=== PATIENT | male | born 1980 | race Caucasian/White ===

== ENCOUNTER 2018-03-16 18:35 | Inpatient (IN) | payer MEDICAID, SELFPAY ==
[2018-03-16 18:39] VITALS: BP 124/95; PULSE 118; RESP 24; TEMP 37; O2SAT 97
--- NOTE | 2018-03-16 20:15 | ED.GENADUL_ITS ---
Disposition <Kim Burns - Last Filed: 03/16/18 20:34> <Benjamín Henao - Last Filed: 03/17/18 00:12> Clinical Impression: Poppy, Acute psychosis Disposition: STILL A PATIENT Medical Decision Making - Medical Decision Making 1841 -- 37-year-old male with history of night terrors, DVT and pulmonary embolism who was recently seen here 1 month ago for hypomania due to tangential thought and flight of ideas with ultimate discharge to home after cleared by mental health who presents for a similar presentation today. Report per [place] [employer] and [facility] was that patient was seen there earlier today and was threatening to get a gun and shoot people. We have a fax report from [facility] which stated that patient was in the main waiting room area in the first floor and became increasingly agitated and said if you aren't going to help me I am going to get a gun and start shooting people . [facility] Police Department was called and took patient to economic services. When confronted about this, patient denies ever saying this. It is unclear regarding what happened between economic services to now but patient came here voluntarily on his own. Patient has stated that he came here for Lovenox prescription. He stated he did not have any, but his bag that he presented with has multiple boxes of Lovenox. When confronted on this, patient states he does not take this Lovenox. Patient also states that he does have a Lovenox prescription at [facility] and he would like to leave to get this. Patient exhibits poppy, again with flight of ideas and tangential thought. He has rapid speech. His heart rate is tachycardic. He denies chest pain or shortness of breath. He denies suicidal or homicidal ideation. He denies hallucinations. I discussed with girlfriend in waiting room and she states she believes patient is nonthreatening. When I discussed with her that we received written documentation that he threatened to shoot people at [facility], she stated that this is not him and she is concerned. Patient initially declined lab work and requested to leave. Mental health evaluated and did not feel that we had a legal right to keep patient here. Girlfriend is now here who stated that she believes patient was recently diagnosed with bone cancer, and he has not slept for the past 4 days. When confronted on this, patient denies having bone cancer and states he believes his bone degeneration is due to his Lovenox injections. At this point I am concerned about a medical cause or contribution to his symptoms, so would recommend medical workup including labs and urinalysis. I am also concerned about a non medical cause of acute psychosis as he is clearly denying his threatening to shoot people which is written on paper as well as claiming he did not have Lovenox which is clearly in his bag, and his rapid speech and flight of ideas. 2009 -- patient is now agreeable to lab work. 2024 -- Pt had labs drawn but is demanding to leave. Will give Haldol and Ativan IM. 2029 --Case endorsed to Dr. Henao to follow-up on lab results and disposition. <Kim Burns - Last Filed: 03/16/18 20:34> - Lab Data Laboratory Tests 03/16/18 03/16/18 03/16/18 20:19 20:19 20:19 WBC 11.14 H RBC 5.12 Hgb 16.2 Hct 47.0 MCV 91.8 MCH 31.6 MCHC 34.5 RDW 13.3 Plt Count 220 MPV 11.3 H Immature Gran % 0.4 Neutrophils % 77.1 Lymphocytes % 16.2 Monocytes % 5.6 Eosinophils % 0.5 Basophils % 0.2 Absolute Neutrophils 8.59 H Absolute Lymphocytes 1.80 Absolute Monocytes 0.62 Absolute Eosinophils 0.06 Absolute Basophils 0.02 PT 10.1 INR 1.0 APTT 24.1 Sodium 139 Potassium 3.5 Chloride 103 Carbon Dioxide 24.3 Anion Gap 11.7 H BUN 15 Creatinine 1.07 Estimated GFR/1.73 m2 >= 60.00 Glucose 105 H Calcium 9.3 Ethyl Alcohol 03/16/18 20:19 WBC RBC Hgb Hct MCV MCH MCHC RDW Plt Count MPV Immature Gran % Neutrophils % Lymphocytes % Monocytes % Eosinophils % Basophils % Absolute Neutrophils Absolute Lymphocytes Absolute Monocytes Absolute Eosinophils Absolute Basophils PT INR APTT Sodium Potassium Chloride Carbon Dioxide Anion Gap BUN Creatinine Estimated GFR/1.73 m2 Glucose Calcium Ethyl Alcohol < 3.0 - Medical Decision Making The case was signed out to be my my colleague Dr. Burns. Upon my arrival to the emergency department at 8 PM the patient was aggressive, threatening staff and law enforcement, demonstrated signs of pressured speech, grandiosity, and was speaking in ways that did not clearly make sense. The patient had written documentation signed by staff at the local clinic that he had come in and stated to go and get a gun and shoot everyone up if I do not get any help or my Lovenox. And yet the patient had an entire bag filled with Lovenox which could be used. He showed concerns for grandiosity by stating multiple times to other staff physicians and caregivers that they were stupid and he was a smartest person here and he would teach them how to practice medicine correctly. While here in the emergency department I went and evaluated the patient personally and he made comments to me that I just want to , I want to end my life, I want it to be over. I need my Lovenox to live, I do not need my Lovenox to live, if you do not give me my Lovenox I will . I do not need my Lovenox, I will not if I do not have my Lovenox. I brought up with the patient how we have his Lovenox, and he has had his Lovenox, and he seemed to completely ignore this point and continue perseverating on various things including Lovenox, and his lack of will to live. In addition to this while the police officers were standing outside of his room the patient stated your heads would spin if you knew how quickly I could ripped those guns out of your whole stairs and use them. I feel that this is particularly concerning with his previous verbal statements of shooting up office staff. With the patient's clinical signs and symptoms and concern that he is having and demonstrating signs of poppy, mild psychosis, grandiosity, flight of ideas, pressured speech, as well as homicidal and suicidal ideations. Acting in the best interest of the patient's I do not feel that he is safe for discharge home for both his own well-being and the safety and well-being of others. Because of this I have filled out and signed the the emergency examination form for the patient. I feel that he would benefit from psychiatric admission. His laboratory workup does appear benign at this time. I feel that his symptoms are most concerning only secondary to a nonmedical psychiatric issue clinically at this time. I discussed the case with the mental health team and they agree. Patient due to his severe on rest, notable agitation, stomping around his room and actively coming out of his room and threatening other practitioners, providers, and frightening staff, we have given him 2 mg of Ativan and 5 mg of Haldol which she has responded well to. <Benjamín Henao R - Last Filed: 03/17/18 00:12> History of Present Illness - General Source: patient Mode of arrival: ambulatory Limitations: no limitations - History of Present Illness Initial comments: Patient is a 37-year-old male who presents voluntarily requesting Lovenox prescription and concerned about having a place to live. Police Department were present in ED while patient was present as patient had threatened to shoot people at [facility] today. <Kim Burns - Last Filed: 03/16/18 20:34> <Benjamín Henao R - Last Filed: 03/17/18 00:12> - General Chief complaint: PsychEval Stated complaint: UNKNOWN/PSYCH Time Seen by Provider: 03/16/18 18:42 - Related Data Enoxaparin [Lovenox] 120 mg SC BID 03/16/18 Allergies Allergy/AdvReac Type Severity Reaction Status Date / Time No Known Allergies Allergy Unverified 03/16/18 18:44 Review of Systems Constitutional: denies: chills, fever Eyes: denies: eye pain ENT: denies: ear pain, dental pain Respiratory: denies: cough, shortness of breath Cardiovascular: denies: chest pain, dyspnea on exertion Gastrointestinal: denies: abdominal pain, nausea, vomiting Genitourinary: denies: urgency, dysuria, frequency Musculoskeletal: denies: back pain Skin: denies: rash, lesions Neurological: denies: headache, weakness, numbness <Kim Burns - Last Filed: 03/16/18 20:34> Past Medical History - Past Medical History Medical history: AMI, DVT, hypertension, PE Hepatitis C Surgical history: angioplasty/stent, other (Knee arthroscopy, IVC filter) - Social History Smoking status: current everyday smoker Alcohol use: none Drug use: none <Kim Burns - Last Filed: 03/16/18 20:34> General Exam - General Limitations: no limitations General appearance: alert, in no apparent distress - Eye Eye exam: Present: EOMI - Respiratory Respiratory exam: Present: normal lung sounds bilaterally. Absent: respiratory distress, wheezes, rales, rhonchi, stridor - Cardiovascular Cardiovascular Exam: Present: regular rate, normal rhythm. Absent: bradycardia , tachycardia - GI/Abdominal GI/Abdominal exam: Present: soft, normal bowel sounds. Absent: distended, tenderness, guarding, rebound, rigid - Neurological Exam Neurological exam: Present: alert, oriented X3 - Psychiatric Psychiatric exam: Present: agitated, anxious. Absent: homicidal ideation, suicidal ideation - Skin Skin exam: Present: warm, dry, intact <Kim Burns - Last Filed: 03/16/18 20:34> Course Vital Signs - 24 hr 03/16/18 18:39 Temperature 98.6 F Pulse 118 H Respiratory 24 Rate Blood Pressure 124/95 Pulse Oximetry 97 <Kim Burns - Last Filed: 03/16/18 20:34> Vital Signs - 24 hr 03/16/18 18:39 Temperature 37.0 C Pulse 118 H Respiratory 24 Rate Blood Pressure 124/95 Pulse Oximetry 97 <Benjamín Henao - Last Filed: 03/17/18 00:12>
[2018-03-16 20:29] LABS: Abs Immature Grans 0.05 k/cumm (0.0-0.09); Absolute Basophil Count 0.02 k/cumm (0.0-0.2); Absolute Eosinophil Count 0.06 k/cumm (0.0-0.7); Absolute Monocyte Count 0.62 k/cumm (0.11-0.7); Absolute Neutrophil Count 8.59 k/cumm (1.2-6.7); Basophils % 0.2; Eosinophils % 0.5; HGB 16.2 g/dL (13.5-17.5); Immature Grans % 0.4; Lymphocytes % 16.2; Mean Corp. HGB Concentration 34.5 g/dL (32.0-36.0); Mean Corpuscular Hemoglobin 31.6 pg (27.0-33.0); Mean Corpuscular Volume 91.8 fL (80-95); Mean Platelet Volume 11.3 fL (8.0-11.0); Monocytes % 5.6; Neutrophils % 77.1; Platelet Count 220 x1000/uL (130-400); RBC 5.12 m/cumm (4.50-6.00); RBC Distribution Width 13.3 % (11.8-14.1); White Blood Cell Count 11.14 k/cumm (4.4-10.8)
[2018-03-16 20:39] LABS: Anion Gap 11.7 mmol/L (3-11); BUN 15 mg/dL (7-18); CO2 24.3 mmol/L (21.0-32.0); CREATININE 1.07 mg/dL (0.70-1.30); Calcium 9.3 mg/dL (8.5-10.1); Chloride 103 mmol/L (98-107); Glucose 105 mg/dL (70-100); Potassium 3.5 mmol/L (3.5-5.1); Sodium 139 mmol/L (136-145)
[2018-03-16 20:44] LABS: PTT Activated 24.1 sec (21.0-31.4); Prothrombin Time 10.1 sec (9.3-10.8)
[2018-03-16] MEDS: Haloperidol 5 MG/ML VIAL IM (20:55)
[2018-03-16] MEDS: LORazepam 2 MG/ML VIAL IM (20:56)
[2018-03-16 21:00] LABS: ETHANOL BLOOD < 3.0 mg/dL (<3)
--- NOTE | 2018-03-16 23:43 | PDOC.ERCMPRO ---
Care Management Progress Note 03/16-Rodney presented to the emergency department for medication. [facility] services had attempted to place him in two different hotels today for which he was kicked out of due to his behavior. Rodney stated he needed medications but he had them in his back pack. Threatening behaviors. Wednesday, 03/16, in the am, Rodney was at [facility] and threatened to get a gun and start shooting people if you don?t help me. Police were called and they took his to [facility] services and they were trying to help him but he was agitated, kicked out of both hotels, wondered around [facility] for a couple of hours. In the emergency room, patient was both suicidal and homicidal. See Dr. Henao?s note. Rodney lives with his mother in [place], she states he can not go back home. Mother was at [facility] and left. Carolyn from [facility] will reassess and continue bed search in am. Currently [facility] are accepting a referral for which referral has been faxed. Rodney has been EE?d. Second cert has been requested. QMHP was Megan Pellteier from [facility]. Kelly from [facility] in [facility] was in this phone huddle.Also discussed Care Plan with Dr. Henao. Care Plan 1. Suicide Precautions 2. Patient should be in paper clothes, currently sleeping, once he is awake, transition to paper clothes at that time 3. No Personal belongings in room 4. Please follow the policy on the admitted behavioral health patient 5. No phone at this time 6. No visitors at this time 7. Finger foods only. No utensils at all 8. Comfort bath system for hygiene 9. Supervised bathroom privileges 10 No television at this time 11. One one supervision by a SECURITY PROGRAM MANAGER, MANGANESE HEATER, double back operator. Please adhere to this care plan. If any changes, questions, or issues, please notify [facility] interventional radiology technologist Drum Plater at [phone], [facility] Mix Maker at [phone]. Any changes to care plan, must have huddle and new care plan must be written.
--- NOTE | 2018-03-17 00:04 | CMPROGNOTE_ITS ---
Care Management Progress Note 03/16-Rodney presented to the emergency department for medication. [facility] services had attempted to place him in two different hotels today for which he was kicked out of due to his behavior. Rodney stated he needed medications but he had them in his back pack. Threatening behaviors. Wednesday, 03/16, in the am, Rodney was at [facility] and threatened to get a gun and start shooting people if you don t help me. Police were called and they took his to [facility] services and they were trying to help him but he was agitated, kicked out of both hotels, wondered around [facility] for a couple of hours. In the emergency room, patient was both suicidal and homicidal. See Dr. Henao s note. Rodney lives with his mother in [place], she states he can not go back home. Mother was at [facility] and left. Carolyn from [facility] will reassess and continue bed search in am. Currently [facility] are accepting a referral for which referral has been faxed. Rodney has been EE d. Second cert has been requested. QMHP was Megan Pelletier from [place]. Kelly from [facility] in [facility] was in this phone huddle.Also discussed Care Plan with Dr. Henao. Care Plan 1. Suicide Precautions 2. Patient should be in paper clothes, currently sleeping, once he is awake, transition to paper clothes at that time 3. No Personal belongings in room 4. Please follow the policy on the admitted behavioral health patient 5. No phone at this time 6. No visitors at this time 7. Finger foods only. No utensils at all 8. Comfort bath system for hygiene 9. Supervised bathroom privileges 10 No television at this time 11. One one supervision by a FARM EQUIPMENT ENGINEER, BELT NOTCHER, senior qualitative researcher. Please adhere to this care plan. If any changes, questions, or issues, please notify [facility] manager operations research Renewals Manager at [phone], [facility] Brim Greaser Operator at [phone]. Any changes to care plan, must have huddle and new care plan must be written.
--- NOTE | 2018-03-17 00:22 | ERMH_ITS ---
Presenting issue: *How did they arrive here at ER and why did they come: Client is a 37-year-old male who came to the ER voluntarily requesting Lovenox prescription and concerned about not having a place to live. Police Department were present in ED while client was present as he had threatened to shoot people at [facility] earlier today. Precipitating Factors: *Assessment of Safety SI / HI- (Address delusions if pertaining to the SI/ HI) Client had denied any SI or HI, but due to his agitation he did make suicidal and homicidal statements. He is presenting with brendan at this time with massive aggression towards staff, and police in the ER. Clients family stated they will not allow him there due to this behavior and left the ER Disposition: *Behavior: Angry *Eye Contact: Angry eye contact, glaring *Mood: Very Angry, Agitated *Affect: Labile *Appetite: unknown *Sleep (trouble falling/staying asleep): States he is unable to sleep Plan: (please elaborate and include that physician is consulted with plan and/ or placement): Plan is that he is on EE status and awaiting second certification, All psychiatric beds are full at this time, however [facility] had this clinician fax paperwork to them as they are expecting discharges. Megan Pelletier from [facility] in [place] and [facility] wrote the paperwork for the EE, and [facility] will follow up in the morning with the client and progress in looking for a psychiatric bed. Provisional Diagnosis:(only if required by physician): AXIS 5 Case Handover: Done with ED nurse (name): Date & Time Huddle: done with ED staff (for boarding clients): x Yes No Date/ Time 03/16/2018 via phone @ 11:45 pm Referral for Case management: Has phone call for introduction been made Yes No Referral in EMR: Done and sent? Yes NO Clinicians Name and title and Signature: Ana Stroud, , [facility], ES Make sure that you are photocopying and submitting this to [facility] records dept.to be scanned into chart
--- NOTE | 2018-03-17 08:44 | ED.FU ---
Disposition Clinical Impression: Poppy, Acute psychosis Disposition: [facility] INPATIENT Condition: Good Medical Decision Making - Lab Data Laboratory Tests 03/16/18 03/16/18 03/16/18 20:19 20:19 20:19 WBC 11.14 H RBC 5.12 Hgb 16.2 Hct 47.0 MCV 91.8 MCH 31.6 MCHC 34.5 RDW 13.3 Plt Count 220 MPV 11.3 H Immature Gran % 0.4 Neutrophils % 77.1 Lymphocytes % 16.2 Monocytes % 5.6 Eosinophils % 0.5 Basophils % 0.2 Absolute Neutrophils 8.59 H Absolute Lymphocytes 1.80 Absolute Monocytes 0.62 Absolute Eosinophils 0.06 Absolute Basophils 0.02 PT 10.1 INR 1.0 APTT 24.1 Sodium 139 Potassium 3.5 Chloride 103 Carbon Dioxide 24.3 Anion Gap 11.7 H BUN 15 Creatinine 1.07 Estimated GFR/1.73 m2 >= 60.00 Glucose 105 H Calcium 9.3 Ethyl Alcohol 03/16/18 20:19 WBC RBC Hgb Hct MCV MCH MCHC RDW Plt Count MPV Immature Gran % Neutrophils % Lymphocytes % Monocytes % Eosinophils % Basophils % Absolute Neutrophils Absolute Lymphocytes Absolute Monocytes Absolute Eosinophils Absolute Basophils PT INR APTT Sodium Potassium Chloride Carbon Dioxide Anion Gap BUN Creatinine Estimated GFR/1.73 m2 Glucose Calcium Ethyl Alcohol < 3.0 - Medical Decision Making Received signout from Dr. Henao, the overnight physician taking care of the patient following Dr. Burns. Please see their previous documentation. Patient awoken with care management at bedside, interactive, with persistent delusions of being a member of the [place] family, pressured speech, tangential thoughts. His medical workup, including PT/INR, was unremarkable. He does not have any evidence of ongoing bleeding. It is unclear his compliance with any of his prescribed medicines. He states he has a history of breakthrough blood clot on oral anticoagulants such as Pradaxa and Eliquis and is now being maintained on Lovenox 120 mg subcu twice daily. When questioned on his DVT/Anticoagulant history, he becomes quite pressured in his speech and states you are an idiot for not doing her homework on this. He does have a documented history of DVT including that of the left mid to distal femoral vein September 14, 2017 by ultrasound at [facility]. Records reviewed include an initial clinic contact in 2013 with history of blood clot. Given this medical history, no evidence of bleeding or lab abnormality, it is reasonable to give him his Lovenox as prescribed, which he is taking voluntarily. States to me that he understands that he is under emergency evaluation/72 hour hold. States to me he voluntarily accepts transfer to [facility] or other institution. States that he is in [place] in the emergency department. Seen by mental health and care management, no bed available in the state, appropriate for him at this time. Will explore admission to [facility] pending definitive placement.
--- NOTE | 2018-03-17 08:47 | ED.FU_ITS ---
Disposition Clinical Impression: Poppy, Acute psychosis Disposition: [facility] INPATIENT Condition: Good Medical Decision Making - Lab Data Laboratory Tests 03/16/18 03/16/18 03/16/18 20:19 20:19 20:19 WBC 11.14 H RBC 5.12 Hgb 16.2 Hct 47.0 MCV 91.8 MCH 31.6 MCHC 34.5 RDW 13.3 Plt Count 220 MPV 11.3 H Immature Gran % 0.4 Neutrophils % 77.1 Lymphocytes % 16.2 Monocytes % 5.6 Eosinophils % 0.5 Basophils % 0.2 Absolute Neutrophils 8.59 H Absolute Lymphocytes 1.80 Absolute Monocytes 0.62 Absolute Eosinophils 0.06 Absolute Basophils 0.02 PT 10.1 INR 1.0 APTT 24.1 Sodium 139 Potassium 3.5 Chloride 103 Carbon Dioxide 24.3 Anion Gap 11.7 H BUN 15 Creatinine 1.07 Estimated GFR/1.73 m2 >= 60.00 Glucose 105 H Calcium 9.3 Ethyl Alcohol 03/16/18 20:19 WBC RBC Hgb Hct MCV MCH MCHC RDW Plt Count MPV Immature Gran % Neutrophils % Lymphocytes % Monocytes % Eosinophils % Basophils % Absolute Neutrophils Absolute Lymphocytes Absolute Monocytes Absolute Eosinophils Absolute Basophils PT INR APTT Sodium Potassium Chloride Carbon Dioxide Anion Gap BUN Creatinine Estimated GFR/1.73 m2 Glucose Calcium Ethyl Alcohol < 3.0 - Medical Decision Making Received signout from Dr. Henao, the overnight physician taking care of the patient following Dr. Burns. Please see their previous documentation. Patient awoken with care management at bedside, interactive, with persistent delusions of being a member of the [place] family, pressured speech, tangential thoughts. His medical workup, including PT/INR, was unremarkable. He does not have any evidence of ongoing bleeding. It is unclear his compliance with any of his prescribed medicines. He states he has a history of breakthrough blood clot on oral anticoagulants such as Pradaxa and Eliquis and is now being maintained on Lovenox 120 mg subcu twice daily. When questioned on his DVT/Anticoagulant history, he becomes quite pressured in his speech and states you are an idiot for not doing her homework on this. He does have a documented history of DVT including that of the left mid to distal femoral vein September 14, 2017 by ultrasound at [facility]. Records reviewed include an initial clinic contact in 2013 with history of blood clot. Given this medical history, no evidence of bleeding or lab abnormality, it is reasonable to give him his Lovenox as prescribed, which he is taking voluntarily. States to me that he understands that he is under emergency evaluation/72 hour hold. States to me he voluntarily accepts transfer to [facility] or other institution. States that he is in [place] in the emergency department. Seen by mental health and care management, no bed available in the state, appropriate for him at this time. Will explore admission to [facility] pending definitive placement.
[2018-03-17] MEDS: Enoxaparin 120 MG/0.8 ML SYR SC ×2 (09:16→20:28)
--- NOTE | 2018-03-17 09:36 | PDOC.ERCMPRO ---
Care Management Progress Note 03/17-Received call from [facility] at [facility]. Kim states that [facility] beds and are willing to accept a referral on Rod[facility]. Kim states that they are willing to accept EE patients today. Referral faxed to [facility] at [phone] attention to Kim, . Huddle in ED. Present in Huddle: Jeanette Nursing Irrigation Foreman, Carolyn Valdez [facility], and this CM. Discussed plan of care. At this time, Rodney has been appropriate. He has taken his medication, actually asked for his lovenox, and has had breakfast. Currently he is talking with the patient sitter. Rodney has asked to have his phone electrification adviser as his phone is not charged. He is still in regular clothing. At this time, the Care plan will change for him to remain in his own clothing and to have his electrification adviser. He will continue with a one on one for which meter supervisor will continue to coordinate. Jaylanwilfredopravin has called back and has declined admission for today. Care Plan distributed to appropriate staff. New Care plan as follows: Care Plan Rodney Hernandez 03/17/18 Involuntary Admission (EE) 1. Suicide Precautions 2. Patient can remain in personal clothing 3. No other Personal belongings in room 4. Please follow the policy on the admitted behavioral health patient 5. Patient may have cell phone in room, and phone electrification adviser when needed 6. No visitors at this time 7. Finger foods only. No utensils at all 8. Comfort bath system for hygiene 9. Supervised bathroom privileges 10 No television at this time 11. One one supervision by a HARLEEN, RESTAURANT CREW PERSON, cloth shrinking machine operator. Please adhere to this care plan. If any changes, questions, or issues, please notify [facility] suction drum drier operator Facing Cutting Machine Operator at [phone], [facility] Material Reprocessing Associate at [phone]. Any changes to care plan, must have huddle and new care plan must be written.
--- NOTE | 2018-03-17 09:44 | NUR.NOTE ---
pT calm went to the bathroom, being appropriate to me. Nursing Note:
--- NOTE | 2018-03-17 09:48 | NUR.NOTE ---
pT on his personal phone. Nursing Note:
--- NOTE | 2018-03-17 09:55 | NUR.NOTE ---
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 Nursing Note:
--- NOTE | 2018-03-17 10:05 | NUR.NOTE ---
Nursing Note: pT calm watching a movie on his phone called [employer] .
--- NOTE | 2018-03-17 10:21 | CMPROGNOTE_ITS ---
Care Management Progress Note 03/17-Received call from Kim at [facility]. Kim states that [facility] does have beds and are willing to accept a referral on [facility]. Kim states that they are willing to accept EE patients today. Referral faxed to [facility] at [phone] attention to Kim, . Huddle in ED. Present in Huddle: Jeanette Nursing Retirement Assistant, Carolyn Valdez [facility], and this CM. Discussed plan of care. At this time, Rodney has been appropriate. He has taken his medication, actually asked for his lovenox, and has had breakfast. Currently he is talking with the patient sitter. Rodney has asked to have his phone yarn spooler as his phone is not charged. He is still in regular clothing. At this time, the Care plan will change for him to remain in his own clothing and to have his yarn spooler. He will continue with a one on one for which supervisor capacitor processing will continue to coordinate. Jaylanwilfredopravin has called back and has declined admission for today. Care Plan distributed to appropriate staff. New Care plan as follows: Care Plan Rodney Hernandez 03/17/18 Involuntary Admission (EE) 1. Suicide Precautions 2. Patient can remain in personal clothing 3. No other Personal belongings in room 4. Please follow the policy on the admitted behavioral health patient 5. Patient may have cell phone in room, and phone yarn spooler when needed 6. No visitors at this time 7. Finger foods only. No utensils at all 8. Comfort bath system for hygiene 9. Supervised bathroom privileges 10 No television at this time 11. One one supervision by a HARLEEN, CLOTH FRAMER, purchasing and claims supervisor. Please adhere to this care plan. If any changes, questions, or issues, please notify [facility] combat information center officer Oil Well Service Unit Operator at [phone], [facility] Helpdesk Manager at [phone]. Any changes to care plan, must have huddle and new care plan must be written.
--- NOTE | 2018-03-17 10:23 | NUR.NOTE ---
Nursing Note: pT sleeping or listening to music. laying in bed.
--- NOTE | 2018-03-17 10:33 | NUR.NOTE ---
Nursing Note: pT sleeping he is snoring with his ear buds in.
--- NOTE | 2018-03-17 10:43 | NUR.NOTE ---
Nursing Note: pT still asleep and snoring.
--- NOTE | 2018-03-17 10:52 | NUR.NOTE ---
Nursing Note: pT still asleep.
--- NOTE | 2018-03-17 11:00 | NUR.NOTE ---
Nursing Note: PT sleeping.
--- NOTE | 2018-03-17 11:14 | NUR.NOTE ---
Nursing Note: pT still sleeping.
--- NOTE | 2018-03-17 11:20 | NUR.NOTE ---
Nursing Note: pT still sleeping.
--- NOTE | 2018-03-17 11:31 | NUR.NOTE ---
Nursing Note: pT sleeping.
--- NOTE | 2018-03-17 11:39 | NUR.NOTE ---
Nursing Note: pT sleeping.
--- NOTE | 2018-03-17 11:57 | NUR.NOTE ---
Nursing Note: pt woke up and was cranky and in pain, wanted his coke (drink) and said he was not sleeping. But Then closed his eyes and is snoring now.
--- NOTE | 2018-03-17 12:05 | NUR.NOTE ---
Nursing Note: pT was given coke (the drink) and he was asleep snoring so I did not wake him.
--- NOTE | 2018-03-17 12:16 | NUR.NOTE ---
Nursing Note: pT sleeping.
--- NOTE | 2018-03-17 12:36 | NUR.NOTE ---
Nursing Note: pT asleep.
--- NOTE | 2018-03-17 12:53 | NUR.NOTE ---
Nursing Note: pt sleeping.
--- NOTE | 2018-03-17 13:03 | NUR.NOTE ---
Nursing Note: pT asleep.
--- NOTE | 2018-03-17 13:14 | NUR.NOTE ---
Nursing Note: pT awake and cooperative with me, and in a good mood.
--- NOTE | 2018-03-17 13:24 | NUR.NOTE ---
Nursing Note: pT talking to me.
--- NOTE | 2018-03-17 13:37 | NUR.NOTE ---
Nursing Note: pT in good mood talking to me about his earlier days and trying to get pictures sent to him from a family member of him when he was young.
--- NOTE | 2018-03-17 14:01 | NUR.NOTE ---
Nursing Note: pT eating lunch and talking to me.
[2018-03-17 14:13] VITALS: BP 126/82; PULSE 94; RESP 20; TEMP 36.4; O2SAT 98
--- NOTE | 2018-03-17 16:17 | PDOC.HP ---
Date of Service: 03/17/18 Time of Service: 16:17 Assessment/Plan - Assessment/Plan (1) Bipolar disorder with psychotic features Plan: Admission [facility] under observation status pending transfer to inpatient psychiatric bed. Given the [facility] history of not expediting acute psychiatric cases to appropriate inpatient psychiatric beds I am not going to wait to start treatment. I have ordered Depakote to start at 250 mg 3 times a day and I will titrated by 250 mg every day until he is up to a daily dose of 1500 mg to 2000 mg per day. I will also start the patient on Seroquel 100 mg nightly and titrate that dose as well. History of Present Illness - History of Present Illness Chief Complaint: Brendan History of Present Illness: 37-year-old male with past medical history of obesity, DVT, pulmonary emboli, hypertension, hepatitis C, myocardial infarction status post coronary angioplasty and stent as well as Josue filter placement, night terrors and questionable history for bipolar disorder. Patient was brought to the emergency department by [place] police to be evaluated for acute mental health issues. See Dr. Kim Burns's emergency room note for details. Patient had been seen at [facility] earlier in the day requesting help regarding his Lovenox prescription. He is chronically on Lovenox for recurrent DVTs and pulmonary emboli after failing multiple oral anticoagulants including warfarin and apixaban. It is unclear to me from the record exactly what words were exchanged during his encounter at [facility] but the [facility] fax report to our emergency room stating that the patient was in the waiting area on the first floor and became severely agitated and stated if you are going to help me I am going to get a gun and start shooting people. Presently the patient denies any suicidal homicidal ideation. Patient has a stream of tangential thoughts and rapid conversation moving from topic to topic. He has grandiose ideas that he is a genius and knows more than the doctors stating that he knows every known side effect of Lovenox and feels that the Lovenox shots are killing him possibly causing him to have a cancer or osteoporosis. According to Dr. Burns's ER report patient's girlfriend reported that she believe the patient was diagnosed with bone cancer although we have no corroborative evidence he has been given such a diagnosis. The patient was confronted about this he told Dr. Burns that he does not have bone cancer but states he 7 bone degeneration due to his Lovenox injections. His girlfriend told the ER personnel that he has not slept in 4 days. Patient was reportedly picked up by the [place] [employer] and taken to the welfare office. Patient states that he has been homeless and been to the welfare office to get assistance with housing and that he was put up in a hotel. He states that he was minding his own business in the hotel when the [place] police came and picked him up and brought him in stating that he had threatened to hurt the staff at [facility]. During his stay in the emergency room he became aggressive and belligerent and was having flight of ideas and grandiosity. Dr. Burns was concerned that there may be a medical reason for his acute brendan and she wanted to lab work he initially refused lab work but eventually agreed to have lab work drawn and then afterwards demand to leave. It was a felt he was a danger to other folks and therefore he was placed under involuntary admission. He was kept in the emergency room overnight from March 16, 2018 until this afternoon March 17, 2018 while referrals were placed to [facility]. Initially the indicated willingness to accept him even under EE status however as of this afternoon there were no beds available for transfer and therefore he is now admitted to [facility] under observation status. Present time patient declines to take any brendan stabilizing medications. - Past Medical History Cardiac: HTN, [place] Pulmonary: Pulmonary embolus, Other (DVT) Hepatobiliary: Hep A/B/C (Hepatitis C) Psych: Bipolar (Questionable history for bipolar disorder. Cannot find documentation of the same but he admits to having been on mood stabilization medications including Risperdal and on antidepressants including Paxil) - Past Surgical History Past Surgical History: Arthroscopy (Knee), Other (Josue filter placement, angioplasty with stent) - Past Social History Smoke: 1 pack per day Alcohol: None Drugs: None Review of Systems - Review of Systems Respiratory: denies: Shortness of Breath Cardiovascular: denies: Chest Pain Musculoskeletal: Back Pain, Other (Hip pain) - Medications/Allergies Allergies/Adverse Reactions: Allergies Allergy/AdvReac Type Severity Reaction Status Date / Time No Known Allergies Allergy Unverified 03/16/18 18:44 Medications: Current Medications Acetaminophen (Tylenol) 0 mg PO Q4H PRN PRN Al Hydrox/Mg Hydrox/Simethicone (Mylanta Liquid) 30 ml PO Q2H PRN PRN Dimethicone/Zinc Oxide (Nhan Protect Cream) 0 gm TP PRN PRN Divalproex Sodium (Depakote) 250 mg PO TID RONAK Docusate Sodium (Colace) 100 mg PO TID PRN PRN Enoxaparin Sodium (Lovenox) 120 mg SC BID [facility] IV Miscellaneous Supplies () 1 each IV DIRECTED RONAK Magnesium Hydroxide (Milk Of Magnesia) 30 ml PO DAILY PRN PRN Polyethylene Glycol (Miralax) 17 gm PO DAILY PRN PRN PRN Reason: Constipation Quetiapine Fumarate (Seroquel) 100 mg PO HS RONAK Sodium Chloride (Saline Flush 10 Ml Syringe) 0 ml IVP PRN PRN Active Medications Generic Name Dose Route Start Last Admin Trade Name Freq PRN Reason Stop Dose Admin Acetaminophen 0 mg 03/17/18 15:01 Tylenol PO Q4H PRN PRN Al Hydrox/Mg Hydrox/Simethicone 30 ml 03/17/18 15:01 Mylanta Liquid PO Q2H PRN PRN Dimethicone/Zinc Oxide 0 gm 03/17/18 15:01 Nhan Protect Cream TP PRN PRN Divalproex Sodium 250 mg 03/17/18 20:00 Depakote PO TID RONAK Docusate Sodium 100 mg 03/17/18 15:01 Colace PO TID PRN PRN Enoxaparin Sodium 120 mg 03/17/18 20:00 Lovenox SC BID [facility] IV Miscellaneous Supplies 1 each 03/17/18 13:15 IV DIRECTED RONAK Magnesium Hydroxide 30 ml 03/17/18 15:01 Milk Of Magnesia PO DAILY PRN PRN Polyethylene Glycol 17 gm 03/17/18 15:01 Miralax PO DAILY PRN PRN Constipation Quetiapine Fumarate 100 mg 03/17/18 22:00 Seroquel PO HS RONAK Sodium Chloride 0 ml 03/17/18 13:04 Saline Flush 10 Ml Syringe IVP PRN PRN Enoxaparin [Lovenox] 120 mg SC BID 03/16/18 Objective - Exam Vitals and I&O: Vital Signs Temp 36.4 C L 03/17/18 14:13 Pulse 94 H 03/17/18 14:13 Resp 20 03/17/18 14:13 BP 126/82 03/17/18 14:13 Pulse Ox 98 03/17/18 14:13 Intake & Output 03/16/18 03/17/18 03/17/18 23:59 11:59 23:59 Weight 114.8 kg General: Alert, Other (Patient is oriented to person place and time. However the patient has rapid speech changing topics frequently. He has grandiose ideas about him being a genius. He states that he needs a 4-[employer] command card from his mother because he believes he has $1 million coming to him.) Lungs: Clear to auscultation, Normal air movement Cardiovascular: Regular rate, Normal S1, Normal S2. denies: Murmurs, Gallops, Rubs Abdomen: Normal bowel sounds, Soft. denies: Tenderness, Hepatospenomegaly, Masses Extremities: Normal pulses. denies: Edema, Tenderness/swelling Skin: Significant lesion (Multiple tattoos over his torso and arms). denies: Rashes Neurological: Other (Pressured and rapid speech with flight of ideas. No focal motor or sensory deficits. No focal cranial nerve abnormalities.) Psych/Mental Status: Other (His mood is unstable. He goes from being grandiose and speaking rapidly and moving from topic to topic to suddenly perseverating on him having some occult cancer or osteoporosis and having occult fractures from his Lovenox. He then starts to cry) Results - Laboratory Data Result Diagrams: 03/16/18 20:19 03/16/18 20:19 Laboratory Results: Laboratory Tests 03/16/18 03/16/18 03/16/18 20:19 20:19 20:19 WBC 11.14 H RBC 5.12 Hgb 16.2 Hct 47.0 MCV 91.8 MCH 31.6 MCHC 34.5 RDW 13.3 Plt Count 220 MPV 11.3 H Immature Gran % 0.4 Neutrophils % 77.1 Lymphocytes % 16.2 Monocytes % 5.6 Eosinophils % 0.5 Basophils % 0.2 Absolute Neutrophils 8.59 H Absolute Lymphocytes 1.80 Absolute Monocytes 0.62 Absolute Eosinophils 0.06 Absolute Basophils 0.02 PT 10.1 INR 1.0 APTT 24.1 Sodium 139 Potassium 3.5 Chloride 103 Carbon Dioxide 24.3 Anion Gap 11.7 H BUN 15 Creatinine 1.07 Estimated GFR/1.73 m2 >= 60.00 Glucose 105 H Calcium 9.3 Ethyl Alcohol 03/16/18 20:19 WBC RBC Hgb Hct MCV MCH MCHC RDW Plt Count MPV Immature Gran % Neutrophils % Lymphocytes % Monocytes % Eosinophils % Basophils % Absolute Neutrophils Absolute Lymphocytes Absolute Monocytes Absolute Eosinophils Absolute Basophils PT INR APTT Sodium Potassium Chloride Carbon Dioxide Anion Gap BUN Creatinine Estimated GFR/1.73 m2 Glucose Calcium Ethyl Alcohol < 3.0
--- NOTE | 2018-03-17 16:27 | PDOC.HP_ITS ---
Date of Service: 03/17/18 Time of Service: 16:17 Assessment/Plan - Assessment/Plan (1) Bipolar disorder with psychotic features Plan: Admission [facility] under observation status pending transfer to inpatient psychiatric bed. Given the [facility] history of not expediting acute psychiatric cases to appropriate inpatient psychiatric beds I am not going to wait to start treatment. I have ordered Depakote to start at 250 mg 3 times a day and I will titrated by 250 mg every day until he is up to a daily dose of 1500 mg to 2000 mg per day. I will also start the patient on Seroquel 100 mg nightly and titrate that dose as well. History of Present Illness - History of Present Illness Chief Complaint: Brendan History of Present Illness: 37-year-old male with past medical history of obesity, DVT, pulmonary emboli, hypertension, hepatitis C, myocardial infarction status post coronary angioplasty and stent as well as Josue filter placement, night terrors and questionable history for bipolar disorder. Patient was brought to the emergency department by [place] police to be evaluated for acute mental health issues. See Dr. Kim Burns's emergency room note for details. Patient had been seen at [facility] earlier in the day requesting help regarding his Lovenox prescription. He is chronically on Lovenox for recurrent DVTs and pulmonary emboli after failing multiple oral anticoagulants including warfarin and apixaban. It is unclear to me from the record exactly what words were exchanged during his encounter at [facility] but the [facility] fax report to our emergency room stating that the patient was in the waiting area on the first floor and became severely agitated and stated if you are going to help me I am going to get a gun and start shooting people. Presently the patient denies any suicidal homicidal ideation. Patient has a stream of tangential thoughts and rapid conversation moving from topic to topic. He has grandiose ideas that he is a genius and knows more than the doctors stating that he knows every known side effect of Lovenox and feels that the Lovenox shots are killing him possibly causing him to have a cancer or osteoporosis. According to Dr. Burns's ER report patient' s girlfriend reported that she believe the patient was diagnosed with bone cancer although we have no corroborative evidence he has been given such a diagnosis. The patient was confronted about this he told Dr. Burns that he does not have bone cancer but states he 7 bone degeneration due to his Lovenox injections. His girlfriend told the ER personnel that he has not slept in 4 days. Patient was reportedly picked up by the [place] Police Department and taken to the welfare office. Patient states that he has been homeless and been to the welfare office to get assistance with housing and that he was put up in a hotel. He states that he was minding his own business in the hotel when the [place] police came and picked him up and brought him in stating that he had threatened to hurt the staff at [facility]. During his stay in the emergency room he became aggressive and belligerent and was having flight of ideas and grandiosity. Dr. Burns was concerned that there may be a medical reason for his acute brendan and she wanted to lab work he initially refused lab work but eventually agreed to have lab work drawn and then afterwards demand to leave. It was a felt he was a danger to other folks and therefore he was placed under involuntary admission. He was kept in the emergency room overnight from March 16, 2018 until this afternoon March 17, 2018 while referrals were placed to [facility]. Initially the indicated willingness to accept him even under EE status however as of this afternoon there were no beds available for transfer and therefore he is now admitted to [facility] under observation status. Present time patient declines to take any brendan stabilizing medications. - Past Medical History Cardiac: HTN, [facility] Pulmonary: Pulmonary embolus, Other (DVT) Hepatobiliary: Hep A/B/C (Hepatitis C) Psych: Bipolar (Questionable history for bipolar disorder. Cannot find documentation of the same but he admits to having been on mood stabilization medications including Risperdal and on antidepressants including Paxil) - Past Surgical History Past Surgical History: Arthroscopy (Knee), Other (Josue filter placement, angioplasty with stent) - Past Social History Smoke: 1 pack per day Alcohol: None Drugs: None Review of Systems - Review of Systems Respiratory: denies: Shortness of Breath Cardiovascular: denies: Chest Pain Musculoskeletal: Back Pain, Other (Hip pain) - Medications/Allergies Allergies/Adverse Reactions: Allergies Allergy/AdvReac Type Severity Reaction Status Date / Time No Known Allergies Allergy Unverified 03/16/18 18:44 Medications: Current Medications Acetaminophen (Tylenol) 0 mg PO Q4H PRN PRN Al Hydrox/Mg Hydrox/Simethicone (Mylanta Liquid) 30 ml PO Q2H PRN PRN Dimethicone/Zinc Oxide (Nhan Protect Cream) 0 gm TP PRN PRN Divalproex Sodium (Depakote) 250 mg PO TID RONAK Docusate Sodium (Colace) 100 mg PO TID PRN PRN Enoxaparin Sodium (Lovenox) 120 mg SC BID [facility] IV Miscellaneous Supplies () 1 each IV DIRECTED RONAK Magnesium Hydroxide (Milk Of Magnesia) 30 ml PO DAILY PRN PRN Polyethylene Glycol (Miralax) 17 gm PO DAILY PRN PRN PRN Reason: Constipation Quetiapine Fumarate (Seroquel) 100 mg PO HS RONAK Sodium Chloride (Saline Flush 10 Ml Syringe) 0 ml IVP PRN PRN Active Medications Generic Name Dose Route Start Last Admin Trade Name Freq PRN Reason Stop Dose Admin Acetaminophen 0 mg 03/17/18 15:01 Tylenol PO Q4H PRN PRN Al Hydrox/Mg Hydrox/Simethicone 30 ml 03/17/18 15:01 Mylanta Liquid PO Q2H PRN PRN Dimethicone/Zinc Oxide 0 gm 03/17/18 15:01 Nhan Protect Cream TP PRN PRN Divalproex Sodium 250 mg 03/17/18 20:00 Depakote PO TID RONAK Docusate Sodium 100 mg 03/17/18 15:01 Colace PO TID PRN PRN Enoxaparin Sodium 120 mg 03/17/18 20:00 Lovenox SC BID [facility] IV Miscellaneous Supplies 1 each 03/17/18 13:15 IV DIRECTED RONAK Magnesium Hydroxide 30 ml 03/17/18 15:01 Milk Of Magnesia PO DAILY PRN PRN Polyethylene Glycol 17 gm 03/17/18 15:01 Miralax PO DAILY PRN PRN Constipation Quetiapine Fumarate 100 mg 03/17/18 22:00 Seroquel PO HS RONAK Sodium Chloride 0 ml 03/17/18 13:04 Saline Flush 10 Ml Syringe IVP PRN PRN Enoxaparin [Lovenox] 120 mg SC BID 03/16/18 Objective - Exam Vitals and I&O: Vital Signs Temp 36.4 C L 03/17/18 14:13 Pulse 94 H 03/17/18 14:13 Resp 20 03/17/18 14:13 BP 126/82 03/17/18 14:13 Pulse Ox 98 03/17/18 14:13 Intake & Output 03/16/18 03/17/18 03/17/18 23:59 11:59 23:59 Weight 114.8 kg General: Alert, Other (Patient is oriented to person place and time. However the patient has rapid speech changing topics frequently. He has grandiose ideas about him being a genius. He states that he needs a [place] command card from his mother because he believes he has $1 million coming to him.) Lungs: Clear to auscultation, Normal air movement Cardiovascular: Regular rate, Normal S1, Normal S2. denies: Murmurs, Gallops, Rubs Abdomen: Normal bowel sounds, Soft. denies: Tenderness, Hepatospenomegaly, Masses Extremities: Normal pulses. denies: Edema, Tenderness/swelling Skin: Significant lesion (Multiple tattoos over his torso and arms). denies: Rashes Neurological: Other (Pressured and rapid speech with flight of ideas. No focal motor or sensory deficits. No focal cranial nerve abnormalities.) Psych/Mental Status: Other (His mood is unstable. He goes from being grandiose and speaking rapidly and moving from topic to topic to suddenly perseverating on him having some occult cancer or osteoporosis and having occult fractures from his Lovenox. He then starts to cry) Results - Laboratory Data Result Diagrams: 03/16/18 20:19 03/16/18 20:19 Laboratory Results: Laboratory Tests 03/16/18 03/16/18 03/16/18 20:19 20:19 20:19 WBC 11.14 H RBC 5.12 Hgb 16.2 Hct 47.0 MCV 91.8 MCH 31.6 MCHC 34.5 RDW 13.3 Plt Count 220 MPV 11.3 H Immature Gran % 0.4 Neutrophils % 77.1 Lymphocytes % 16.2 Monocytes % 5.6 Eosinophils % 0.5 Basophils % 0.2 Absolute Neutrophils 8.59 H Absolute Lymphocytes 1.80 Absolute Monocytes 0.62 Absolute Eosinophils 0.06 Absolute Basophils 0.02 PT 10.1 INR 1.0 APTT 24.1 Sodium 139 Potassium 3.5 Chloride 103 Carbon Dioxide 24.3 Anion Gap 11.7 H BUN 15 Creatinine 1.07 Estimated GFR/1.73 m2 >= 60.00 Glucose 105 H Calcium 9.3 Ethyl Alcohol 03/16/18 20:19 WBC RBC Hgb Hct MCV MCH MCHC RDW Plt Count MPV Immature Gran % Neutrophils % Lymphocytes % Monocytes % Eosinophils % Basophils % Absolute Neutrophils Absolute Lymphocytes Absolute Monocytes Absolute Eosinophils Absolute Basophils PT INR APTT Sodium Potassium Chloride Carbon Dioxide Anion Gap BUN Creatinine Estimated GFR/1.73 m2 Glucose Calcium Ethyl Alcohol < 3.0
[2018-03-17 16:31] VITALS: BP 127/85; PULSE 82; RESP 20; TEMP 37.3; O2SAT 98
[2018-03-17 16:31] LABS: Bilirubin Small (Negative); Blood Negative (Negative); Clarity Clear; Glucose Negative (Negative); Ketones 40 mg/dL (Negative); Leukocyte Esterase Negative (Negative); Nitrite Negative (Negative); Specific Gravity 1.025 (1.005-1.025); pH 6.5 (5-8)
[2018-03-17 16:45] LABS: Tricyclic Antidepressants Negative (Negative)
[2018-03-17 16:48] LABS: *AMPHETAMINES SCREEN URINE Negative (Negative); *BARBITURATES SCREEN URINE Negative (Negative); *BENZODIAZEPINES SCREEN URINE Negative (Negative); Cannabinoids THC POSITIVE (Negative); Cocaine Screen,Urine Negative (Negative); METHADONE URINE SCREEN Negative (Negative); OPIATES URINE SCREEN Negative (Negative)
--- NOTE | 2018-03-17 16:57 | DI.REPORT_ITS ---
SYMPTOM/DIAGNOSIS: CHRONIC BACK PAIN. LUMBOSACRAL SPINE: 03/17 Five views were obtained. There is an IVC filter projected at the L3 level and there is an apparent left iliac graft. There is slight narrowing of intervertebral disc space at L5-S1. Otherwise intervertebral disc spaces are fairly well maintained. Mild hypertrophic degenerative changes noted involving the facet joints in the lower lumbar region. No evidence of spondylolysis or spondylolisthesis. No fracture identified. CONCLUSION: Mild DJD. No other significant abnormality seen. BILATERAL HIPS AND PELVIS: 03/17 Three views were obtained. No bony or soft tissue abnormality seen.
--- NOTE | 2018-03-17 17:37 | DI.VRAD_ITS ---
EXAM: XR Bilateral Hips With Pelvis When Performed, 2 Views CLINICAL HISTORY: 37 years old, male; Pain; Hip pain; Bilateral TECHNIQUE: Two views of the bilateral hips, with pelvis when performed. COMPARISON: No relevant prior studies available. FINDINGS: Bones/joints: Unremarkable. No acute fracture. No dislocation. Soft tissues: Unremarkable. IMPRESSION: No acute fracture or dislocation. Dictated and Authenticated by: Jcarlos Jones MD. Ordering:[facility] ASHLYN PALACIO MD
--- NOTE | 2018-03-17 17:37 | DI.VRAD_ITS ---
EXAM: XR Lumbar Spine, 4 or 5 Views CLINICAL HISTORY: 37 years old, male; Pain; Low back pain TECHNIQUE: Frontal, lateral and oblique views of the lumbar spine. COMPARISON: No relevant prior studies available. FINDINGS: Vertebrae: Vertebral body heights are normal. No acute fracture. No measurable spondylolisthesis. Straightening of the lumbar lordosis. Disc spaces: Disc space heights are unremarkable. Multilevel facet arthropathy, likely with osseous foraminal narrowing at L5-S1. Soft tissues: Unremarkable. Vasculature: IVC filter in place. Vascular stent project over the L5 level, likely within the left iliac vasculature. IMPRESSION: 1. No acute findings. 2. Multilevel facet arthropathy, likely with osseous foraminal narrowing at L5-S1. Dictated and Authenticated by: Jcarlos Jones MD. Ordering:NADEEM PALACIO MD
--- NOTE | 2018-03-17 18:01 | NUR.NOTE ---
SLIM arrived with Notes from [facility] for patient who was seen there on 03-12-18. Dr. Will reviewed notes.
--- NOTE | 2018-03-17 18:51 | PDOC.CMPRO ---
Date of Service: 03/17/18 Time of Service: 18:51 Care Management Progress Note 2nd Cert done with Dr. Keller, [facility] Psychiatrist. Rodney engaged in conversation, though was angry at times throughout discussion with Dr. Keller. Dr. Keller spoke with this contract writer, Carolyn ([facility]) and Shima ([facility]) after he met with Pt and states that he will be approving the EE 2nd cert. Shima, [facility], has notified Rodney of EE status. Safety plan has been established with patient, and care team, to adhere to patient goals, identify restrictions based on behavioral status, address nutrition, and determine allowed personal belongings, tools for hygiene and personal care. Determine level of activity including ambulation, level of supervision, visitors, and determine privileges based on behaviors and level of engagement by pt. Care Plan Rodney Hernandez 03/17/18 Involuntary Admission (EE) 1. Suicide Precautions 2. Patient can remain in personal clothing 3. No other Personal belongings in room 4. Please follow the policy on the admitted behavioral health patient 5. Patient may have cell phone in room, and phone dumpster operator when needed. Patient may have earphones. 6. No visitors at this time 7. Finger foods only. No utensils at all 8. Comfort bath system for hygiene 9. Supervised bathroom privileges 10. May have TV and remote privileges 11. One one supervision by a CATERING SERVER, TOWEL SEWER, log carrier operator. Patient is currently involuntarily at [facility] and seeking inpatient admission when a bed becomes available. [facility] Frontline Facilities Locator will continue seeking placement. Please contact the Process Tank Tender Senior J2Ee Developer ([phone]) and [facility] Facilities Locator ([phone]) for any needed changes in the Safety Plan. Safety plan has been provided to interdepartmental care team including Clinical Coordinator , Nursing Paper Machine Tender.
--- NOTE | 2018-03-17 19:00 | ERMH_ITS ---
Presenting issue: *How did they arrive here at ER and why did they come: Patient initially arrived to the Emergency Room via Police with concerns for mental health disturbances. Precipitating Factors: *Assessment of Safety SI / HI- (Address delusions if pertaining to the SI/ HI) This assessment was conducted during the second certification of the involuntary hospitalization process. The patient denied SI, HI, and delusions to the psychiatrist. The patient believes that he is being kept at the hospital illegally and believes that he is the smartest man ever. During this teleconference the patient did flip off this worker. The patient also lied to the psychiatrist about previous hospitalizations for mental health reason. Disposition: *Behavior: Patient is talking with the psychiatrist associated with [facility] on a laptop teleconference *Eye Contact: Patient was intently focused on the laptop while communicating with the psychiatrist *Mood: Patient was initially calm but quickly became agitated when being asked questions regarding mental health *Affect: Liable *Appetite: Good *Sleep (trouble falling/staying asleep): Patients sleep is becoming more appropriate Plan: (please elaborate and include that physician is consulted with plan and/ or placement): The second certification went through and the patient will remain in the hospital on EE status until a bed becomes available at a mental health treatment facility. Provisional Diagnosis:(only if required by physician): [] AXIS 5 Case Handover: Done with ED nurse (name): [] Date & Time [] Huddle: done with ED staff (for boarding clients): [] Yes [] No Date /Time [] Referral for Case management: Has phone call for introduction been made [] Yes [] No Referral in EMR: Done and sent? [] Yes [] NO Clinicians Name and title and Signature: [Carolyn Noyola - [facility] Emergency Clinician] Make sure that you are photocopying and submitting this to [facility] records dept.to be scanned into chart
--- NOTE | 2018-03-17 19:06 | CMPROGNOTE_ITS ---
Date of Service: 03/17/18 Time of Service: 18:51 Care Management Progress Note 2nd Cert done with Dr. Keller, [facility] Psychiatrist. Rodney engaged in conversation , though was angry at times throughout discussion with Dr. Keller. Dr. Keller spoke with this automobile and property underwriter, Carolyn ([facility]) and Shima ([facility]) after he met with Pt and states that he will be approving the EE 2nd cert. Shima, [facility], has notified Rodney of EE status. Safety plan has been established with patient, and care team, to adhere to patient goals, identify restrictions based on behavioral status, address nutrition, and determine allowed personal belongings, tools for hygiene and personal care. Determine level of activity including ambulation, level of supervision, visitors, and determine privileges based on behaviors and level of engagement by pt. Care Plan Rodney Hernandez 03/17/18 Involuntary Admission (EE) 1. Suicide Precautions 2. Patient can remain in personal clothing 3. No other Personal belongings in room 4. Please follow the policy on the admitted behavioral health patient 5. Patient may have cell phone in room, and phone battery recharger when needed. Patient may have earphones. 6. No visitors at this time 7. Finger foods only. No utensils at all 8. Comfort bath system for hygiene 9. Supervised bathroom privileges 10. May have TV and remote privileges 11. One one supervision by a ZANJERO, CEMENT RAILROAD CAR LOADER, control room supervisor. Patient is currently involuntarily at [facility] and seeking inpatient admission when a bed becomes available. [facility] Frontline Count Team Clerk will continue seeking placement. Please contact the Signal Timer Grievance And Appeals Specialist ([phone]) and [facility] Count Team Clerk ([phone]) for any needed changes in the Safety Plan. Safety plan has been provided to interdepartmental care team including Clinical Coordinator , Nursing Validation Specialist.
--- NOTE | 2018-03-17 20:59 | PDOC.CMPRO ---
Care Management Progress Note *Live* - [facility] Care Management Progress Note Initialization Date: 03/17/18 14:04 Care Management Progress Note Rodney is being admitted to the floor. Discussed with Elicia, Clinical Coordinator that Rodney has been appropriate and that he needs his phone and oceanography professor to continue with his disability. Rodney has been appropriate in the ED. Taking his medications and eating his meals. Rodney has been easily redirected and he does have licensed one on one supervision. Care Plan Rodney Hernandez 03/17/18 Involuntary Admission (EE) 1. Suicide Precautions 2. Patient can remain in personal clothing 3. No other Personal belongings in room 4. Please follow the policy on the admitted behavioral health patient 5. Patient may have cell phone in room, and phone oceanography professor when needed 6. No visitors at this time 7. Finger foods only. No utensils at all 8. Comfort bath system for hygiene 9. Supervised bathroom privileges 10. May have television 11. One on one supervision by a ESCALATION ENGINEER, WELLNESS PROGRAM ADMINISTRATOR, glass laminating operator. Please adhere to this care plan. If any changes, questions, or issues, please notify [facility] paper control clerk Take Up Supervisor at [phone], [facility] Auto Air Conditioning Apprentice at [phone]. Any changes to care plan, must have huddle and new care plan must be written.
--- NOTE | 2018-03-17 21:06 | CMPROGNOTE_ITS ---
Care Management Progress Note *Live* - [facility] Care Management Progress Note Initialization Date: 03/17/18 14:04 Care Management Progress Note Rodney is being admitted to the floor. Discussed with Elicia, Clinical Coordinator that Rondey has been appropriate and that he needs his phone and clinical research nurse to continue with his disability. Rodney has been appropriate in the ED. Taking his medications and eating his meals. Rodney has been easily redirected and he does have licensed one on one supervision. Care Plan Rodney Hernandez 03/17/18 Involuntary Admission (EE) 1. Suicide Precautions 2. Patient can remain in personal clothing 3. No other Personal belongings in room 4. Please follow the policy on the admitted behavioral health patient 5. Patient may have cell phone in room, and phone clinical research nurse when needed 6. No visitors at this time 7. Finger foods only. No utensils at all 8. Comfort bath system for hygiene 9. Supervised bathroom privileges 10. May have television 11. One on one supervision by a SHOT HOLE SHOOTER, TRANSIT PLANNING MANAGER, traffic supervisor. Please adhere to this care plan. If any changes, questions, or issues, please notify [facility] hand button splitter Food Order Delivery Runner at [phone], [facility] Unemployment Inspector at [phone]. Any changes to care plan, must have huddle and new care plan must be written.
[2018-03-18] MEDS: Enoxaparin 120 MG/0.8 ML SYR SC ×2 (08:16→20:20)
--- NOTE | 2018-03-18 11:00 | PDOC.CMPRO ---
Date of Service: 03/18/18 Time of Service: 11:00 Care Management Progress Note Rodney is lying in bed this morning, he has been up in the doorway of his room earlier this morning. Rodney has stated multiple times that [facility] has no rights to hold me here, I am going to leave whenever I want. Rodney has also made threatening comments in regards to police officers. Ratna RN, has asked this typewriter ribbon winder about what to do if Rodney leaves. DEANDRA spoke with Alisson Lara, Quality Management Covering, whom states that she has a call out to Asiya Mccain, Quality Management/Ball Shagger,. Alisson instructed this typewriter ribbon winder to contact KOKI Franco CNO, as he is the department administrator content designer per Alisson's report. DEANDRA contacted Salvador to seek guidance. Salvador states that if Rodney attempts to leave as he is Involuntary EE status the wildlife management professor can detain him if he gets out of his room and tries to leave the hospital. Salvador also states that he is authorizing for a second wildlife management professor to be on the Medical Surgical floor in street clothes in case Rodney attempts to elope or poses a threat to staff. The wildlife management professor has been instructed to remain in another hallway, though in ear shot of the patient observer. DEANDRA contacted Sheriff Braeden, to discuss wildlife management professor coverage, Braeden has Ozzy coming from [phone]. DEANDRA has contacted Nargis Beavers [facility], to request assistance with wildlife management professor coverage, she currently has a call out to Nelson for wildlife management professor coverage. DEANDRA has specified to Nargis the need for the wildlife management professor to remain in street clothes. DEANDRA also spoke with Nargis about ideas in which to handle the current situation as Rodney has been escalating on and off throughout the day. Nargis reports that other facilities use wash crew person during these moments, and recommends a wildlife management professor to be on premises in case Rodney attempts to elope or poses a threat to staff. Adrienne was called, those in attendance Elicia (KOKI CC), Eloisa (RN Heavy Equipment Operator), Ratna (RN), Carolyn ([facility]), and this typewriter ribbon winder. Discussed Rodney's current presentation and how he has been escalating on and off throughout the day. KOKI Segundo, states that Rodney does posture at times, and that he states that he wants to know the plan. Carolyn [facility], has met with Rodney numerous times throughout the morning to notify him that [facility] is working on placement and that there are currently no beds available in the [facility]. Rodney is upset by this and states that he will leave the hospital if he does not get placement somewhere and that the only reason that he is receptive to placement is for assistance with housing. Care plan was discussed in the huddle, at this time there are no changes to the care plan in place which is posted below. DEANDRA has contacted the below facilities. [facility] - No beds [place] - No anticipated beds until Wednesday/Wednesday [place] - No Beds Safety plan has been established with patient, and care team, to adhere to patient goals, identify restrictions based on behavioral status, address nutrition, and determine allowed personal belongings, tools for hygiene and personal care. Determine level of activity including ambulation, level of supervision, visitors, and determine privileges based on behaviors and level of engagement by pt. Care Plan Rodney Hernandez 03/18/18 Involuntary Admission (EE) 1. Suicide Precautions 2. Patient can remain in personal clothing 3. No other Personal belongings in room 4. Please follow the policy on the admitted behavioral health patient 5. Patient may have cell phone in room, and phone prawn trawler hand when needed. Patient may have earphones. 6. No visitors at this time 7. Finger foods only. No utensils. 8. Comfort bath system for hygiene 9. Supervised bathroom privileges 10. May have TV and remote privileges 11. One on one supervision by a FISHING GEAR MECHANIC, ELECTRIC CRANE OPERATOR, automation machine operator. Patient is currently involuntarily at [facility] and seeking inpatient admission when a bed becomes available. [facility] Frontline Telephony Engineer will continue seeking placement. Please contact the Ux Manager E Commerce Solution Architect ([phone]) and [facility] Telephony Engineer ([phone]) for any needed changes in the Safety Plan. Safety plan has been provided to interdepartmental care team including Clinical Coordinator , Nursing Heavy Equipment Operator.
--- NOTE | 2018-03-18 11:23 | ERMH_ITS ---
Presenting issue: *How did they arrive here at ER and why did they come: Patient initially arrived at the Emergency Department via Police for concerns of mental health disturbances. Precipitating Factors: *Assessment of Safety SI / HI- (Address delusions if pertaining to the SI/ HI) This assessment is a daily follow-up until the patient is able to be places in a mental health treatment facility. The patient denies SI, HI, and delusion. The patient believes that he is being held at the hospital illegally and has called the [facility] several times demanding paperwork. The patient is not able to understand that he is being held on an involuntary status for mental health reasons. The patient believes that he is being sent to [facility] for housing rather than for mental health treatment. Disposition: *Behavior: Patient is walking around his room listening to music on his cell phone *Eye Contact: Patient make intermittent eye contact *Mood: Patient's mood easily fluctuates from calm to very agitated *Affect: Labile *Appetite: Good *Sleep (trouble falling/staying asleep): Hospital staff states that the patient slept for several hours last night Plan: (please elaborate and include that physician is consulted with plan and/ or placement): Patient will remain at hospital on EE status until he is placed in a mental health treatment facility. Provisional Diagnosis:(only if required by physician): [] AXIS 5 Case Handover: Done with ED nurse (name): [] Date & Time [] Huddle: done with ED staff (for boarding clients): [] Yes [] No Date /Time [] Referral for Case management: Has phone call for introduction been made [] Yes [] No Referral in EMR: Done and sent? [] Yes [] NO Clinicians Name and title and Signature: [Carolyn Noyola - [facility] Emergency Clinician] Make sure that you are photocopying and submitting this to [facility] records dept.to be scanned into chart
--- NOTE | 2018-03-18 13:34 | CMPROGNOTE_ITS ---
Date of Service: 03/18/18 Time of Service: 11:00 Care Management Progress Note Rodney is lying in bed this morning, he has been up in the doorway of his room earlier this morning. Rodney has stated multiple times that [facility] has no rights to hold me here, I am going to leave whenever I want. Rodney has also made threatening comments in regards to police officers. Ratna RN, has asked this sba underwriter about what to do if Rodney leaves. DEANDRA spoke with Alisson Lara, Quality Management Covering, whom states that she has a call out to Asiya Mccain, Quality Management/Machine Inker,. Alisson instructed this sba underwriter to contact KOKI Franco CNO, as he is the cyber systems administrator lead section supervisor per Alisson's report. DEANDRA contacted Salvador to seek guidance. Salvador states that if Rodney attempts to leave as he is Involuntary EE status the freight clerk can detain him if he gets out of his room and tries to leave the hospital. Salvador also states that he is authorizing for a second freight clerk to be on the Medical Surgical floor in street clothes in case Rodney attempts to elope or poses a threat to staff. The freight clerk has been instructed to remain in another hallway, though in ear shot of the patient observer. DEANDRA contacted Sheriff Braeden, to discuss freight clerk coverage, Braeden has Ozzy coming from [phone]. DEANDRA has contacted Nargis Beavers [facility], to request assistance with freight clerk coverage, she currently has a call out to Nelson for freight clerk coverage. DEANDRA has specified to Nargis the need for the freight clerk to remain in street clothes. DEANDRA also spoke with Nargis about ideas in which to handle the current situation as Rodney has been escalating on and off throughout the day. Nargis reports that other facilities use senior data mining analyst during these moments, and recommends a freight clerk to be on premises in case Rodney attempts to elope or poses a threat to staff. Adrienne was called, those in attendance Elicia (KOKI CC), Eloisa (RN Transportation Operations Manager), Ratna (RN), Carolyn ([facility]), and this sba underwriter. Discussed Rodney's current presentation and how he has been escalating on and off throughout the day. KOKI Segundo, states that Rodney does posture at times, and that he states that he wants to know the plan. Carolyn [facility], has met with Rodney numerous times throughout the morning to notify him that [facility] is working on placement and that there are currently no beds available in the [facility]. Rodney is upset by this and states that he will leave the hospital if he does not get placement somewhere and that the only reason that he is receptive to placement is for assistance with housing. Care plan was discussed in the huddle, at this time there are no changes to the care plan in place which is posted below. DEANDRA has contacted the below facilities. [facility] - No beds [place] - No anticipated beds until Wednesday/Wednesday [place] - No Beds Safety plan has been established with patient, and care team, to adhere to patient goals, identify restrictions based on behavioral status, address nutrition, and determine allowed personal belongings, tools for hygiene and personal care. Determine level of activity including ambulation, level of supervision, visitors, and determine privileges based on behaviors and level of engagement by pt. Care Plan Rodney Hernandez 03/18/18 Involuntary Admission (EE) 1. Suicide Precautions 2. Patient can remain in personal clothing 3. No other Personal belongings in room 4. Please follow the policy on the admitted behavioral health patient 5. Patient may have cell phone in room, and phone receptionist telephone operator when needed. Patient may have earphones. 6. No visitors at this time 7. Finger foods only. No utensils. 8. Comfort bath system for hygiene 9. Supervised bathroom privileges 10. May have TV and remote privileges 11. One on one supervision by a CLIENT SERVICES ADMINISTRATOR, STRIPPER MACHINE OPERATOR, supervisor cigarette making department. Patient is currently involuntarily at [facility] and seeking inpatient admission when a bed becomes available. [facility] Frontline Rivet Hole Puncher will continue seeking placement. Please contact the Diversity Intern Early Head Start Teacher ([phone]) and [facility] Rivet Hole Puncher ([phone]) for any needed changes in the Safety Plan. Safety plan has been provided to interdepartmental care team including Clinical Coordinator , Nursing Transportation Operations Manager.
[2018-03-18 14:04] VITALS: BP 123/64; PULSE 62; RESP 18; TEMP 36.6; O2SAT 100
--- NOTE | 2018-03-18 14:37 | PDOC.CMIN ---
Date of Service: 03/18/18 Time of Service: 14:38 Care Management Initial Assess REASON FOR HOSPITALIZATION:: Bipolar disorder with psychotic features PAST MEDICAL HISTORY/PAST SURGICAL HISTORY:: HTN, [place], Pulmonary embolus, DVT, Hepatitis C, Bipolar ?, Knee arthroscopy, [place] filter placement, angioplasty with stent PREVIOUS FUNCTIONAL STATUS/SOCIAL/FAMILY SUPPORTS:: Unable to obtain much previous functional information as patient is manic at this time. Patient does not have housing, and has been staying at a friends home recently. CURRENT FUNCTIONAL STATUS:: Rodney is pacing in his room. At times he is in the doorway talking with staff. He can be verbally aggressive at times. ADVANCE DIRECTIVES:: None on file Has patient been provided with information about the portal?: No Did the patient sign up for the portal?: No CODE STATUS:: Full Code INSURANCE COVERAGE / FINANCIAL ISSUES:: Medicaid CURRENT HOME/COMMUNITY SERVICES/EQUIPMENT:: Currently Rodney has no services or medical equipment in the community. PRIMARY CARE PHYSICIAN:: Liyah Vail POTENTIAL DISCHARGE NEEDS:: Placement at psychiatric facility. Please see CM progress note from 03/18 for update. PATIENT/FAMILY EDUCATION NEEDS:: Review DC instructions, any limitations, and ongoing DC planning discussion. ANTICIPATED BARRIERS TO DISCHARGE:: Psychiatric bed availability TRANSPORTATION:: Via production lapping machine operator arranged by [facility] PLAN:: Rodney is on an EE involuntary status. He will be placed at a psychiatric facility once a bed is available. Rodney will transport via production lapping machine operator which will be arranged by [facility].
--- NOTE | 2018-03-18 14:49 | INITIAL_ITS ---
Date of Service: 03/18/18 Time of Service: 14:38 Care Management Initial Assess REASON FOR HOSPITALIZATION:: Bipolar disorder with psychotic features PAST MEDICAL HISTORY/PAST SURGICAL HISTORY:: HTN, [place], Pulmonary embolus, DVT, Hepatitis C, Bipolar ?, Knee arthroscopy, [place] filter placement, angioplasty with stent PREVIOUS FUNCTIONAL STATUS/SOCIAL/FAMILY SUPPORTS:: Unable to obtain much previous functional information as patient is manic at this time. Patient does not have housing, and has been staying at a friends home recently. CURRENT FUNCTIONAL STATUS:: Rodney is pacing in his room. At times he is in the doorway talking with staff. He can be verbally aggressive at times. ADVANCE DIRECTIVES:: None on file Has patient been provided with information about the portal?: No Did the patient sign up for the portal?: No CODE STATUS:: Full Code INSURANCE COVERAGE / FINANCIAL ISSUES:: Medicaid CURRENT HOME/COMMUNITY SERVICES/EQUIPMENT:: Currently Rodney has no services or medical equipment in the community. PRIMARY CARE PHYSICIAN:: Liyah Vail POTENTIAL DISCHARGE NEEDS:: Placement at psychiatric facility. Please see CM progress note from 03/18 for update. PATIENT/FAMILY EDUCATION NEEDS:: Review DC instructions, any limitations, and ongoing DC planning discussion. ANTICIPATED BARRIERS TO DISCHARGE:: Psychiatric bed availability TRANSPORTATION:: Via furnace unloader arranged by [facility] PLAN:: Rodney is on an EE involuntary status. He will be placed at a psychiatric facility once a bed is available. Rodney will transport via furnace unloader which will be arranged by [facility].
--- NOTE | 2018-03-18 15:02 | PROG.BLANK_ITS ---
Date of Service: 03/18/18 Time of Service: 14:40 Progress Note Patient has become more aggressive as the days progress. He is been making multiple phone calls to his primary care provider, pharmacies, [facility] police, despite the fact we have asked him to limit his phone calls. He was given use of his cell phone to help keep him entertained as he is to listen to music. Care management is considering taking away his phone privileges. He has been refusing any mood stabilizing medications. When in to discuss with him the results of his x-rays of his spine and hips from yesterday which just showed mild DJD. He became belligerent and indicated that he knows that it is his Lovenox is causing his DJD and wants to know what we are going to do about it. When I explained to him that is not the Lovenox causes DJD he ripped up the report and told me that were done. As he was becoming more aggressive and pacing around the room and left the room.
--- NOTE | 2018-03-18 15:26 | PDOC.MHCN ---
Date of Service: 03/18/18 Time of Service: 15:26 Presenting Issue: *How did they arrive here at ER and why did they come: Patient remains at [facility] on EE status. Precipitating Factors: *Assessment of Safety SI/HI (address delusions if pertaining to the SI/HI) Patient is irritable and refuses to answer questions. He states he is very upset with [facility], can take care of himself and does not need my help. He complains that he ended a very important call just so I could speak with him and states he doesn't need anyone's help. Disposition: *Behavior: Uncooperative. *Eye Contact: Good. *Mood: Agitated. *Affect: Anxious. *Appetite: Unknown. *Sleep (trouble falling/staying asleep): Reported by nursing staff to only sleep a couple of hours per night. Plan: There are no available beds in [place]. Patient will therefore remain at [facility] on involuntary status until a placement can be secured for him.
--- NOTE | 2018-03-18 15:29 | PDOC.MHCN_ITS ---
Date of Service: 03/18/18 Time of Service: 15:26 Presenting Issue: *How did they arrive here at ER and why did they come: Patient remains at [facility] on EE status. Precipitating Factors: *Assessment of Safety SI/HI (address delusions if pertaining to the SI/HI) Patient is irritable and refuses to answer questions. He states he is very upset with [facility], can take care of himself and does not need my help. He complains that he ended a very important call just so I could speak with him and states he doesn't need anyone's help. Disposition: *Behavior: Uncooperative. *Eye Contact: Good. *Mood: Agitated. *Affect: Anxious. *Appetite: Unknown. *Sleep (trouble falling/staying asleep): Reported by nursing staff to only sleep a couple of hours per night. Plan: There are no available beds in [place]. Patient will therefore remain at [facility] on involuntary status until a placement can be secured for him.
--- NOTE | 2018-03-18 15:29 | NUR.NOTE ---
Nursing Note: 1500: pt has been cooperative with this RN today; pt believes he is smarter and more intelligent than anyone and states he is way smarter than you, RN allows pt to believe this t/o the shift. pt declined to take medications this shift with exception of lovenox which pt self administered. pt did take lovenox device and retract the needle and point towards staff when retracting the needle. RN was a safe enough distance away so no harm resulted. pt has been very restless t/o the day. pt making statements about harming anyone who gets in my way, especially police should he try to leave. pt states you have no right to keep me here, i've called to court house and talked to the stitch burnisher, you cannot keep me here. pt has called multiple organizations today including legal support specialist; pt requested information and that was provided by the RN to the pt. pt did call and leave a message for legal support specialist. pt has made multiple statements about how intelligent he is, how he is part of the [place] family, his dad is from [place], do you know what he could do to you?, i'm from the [facility], you know you should really watch out for me. pt has been consumed with finding his certificate and getting his credit/lynch card from [facility] they are going to send it here to me, i'm that important, you know that they don't do that for just anyone. pt eating fair and drinking well. pt declines medications stating i'm not taking anything from you, you have created this problem (the hospital, because there is nothing wrong with me), you cannot make me take it!. pt allows for assessment and vs which were all WNL. pt has had a safety observer t/o the day. pt has used the bathroom t/o the day. pt states i'm in pain, but I am always in pain, i don't want anything for it. pt has filmed staff with his phone t/o the day stating when we go to court, they will all see this. pt [facility] after lunch. RN and pt discuss use of ativan to stay chill. pt declines medication stating, i'm not taking anything from your hospital. pt has made threats against staff you will all loose your jobs!, except you (referring to RN) because you have been working with me. pt offers high five to nurse at that time.
[2018-03-18 15:58] VITALS: BP 152/83; PULSE 91; RESP 18; TEMP 36.7; O2SAT 97
--- NOTE | 2018-03-18 17:09 | PHARADMIT ---
Addendum entered by Milka Ríos 03/29/18 11:04: Pt only taking enoxaparin VS-okay No Labs no med changes Original Note: Addendum entered by Milka Ríos 03/28/18 12:44: pt. escalated to the point of requiring restraints early this morning haloperidol and lorazepam given IM BP-143/92 other VS okay no labs no med changes Original Note: Addendum entered by Kianna Luevano 03/27/18 11:44: nothing new per morning meeting Original Note: Addendum entered by Dylan Payne III 03/25/18 12:21: Nursing reported patient was better last night. VS-OK BP-158/97 HR-101 No Labs No report BMs Continues on E Status Original Note: Addendum entered by Dylan Payne III 03/24/18 10:50: VS-OK Labs-OK Continues on EE Status Awaiting psych placement Original Note: Addendum entered by Milka Ríos 03/23/18 12:07: pt is very manic per morning report VS-okay No Labs Remains on EE- Status, waiting for placement continues to take enoxaparin, has taken docusate once but no other meds Original Note: Addendum entered by Milka Ríos 03/22/18 15:11: Patient refused meds, did take enoxaparin VS-okay No Labs Remains on EE- Status, waiting for placement Original Note: Addendum entered by Dylan Payne III 03/21/18 10:53: Patient refused medications. Did receive Lovenox. VS-OK No Labs Remains on EE- Status Original Note: Addendum entered by Milka Ríos 03/20/18 09:37: pt. had a good day yesterday but was escalating some this morning per nursing report VS-okay no labs pt still only taking enoxaparin Original Note: Addendum entered by Milka Ríos 03/19/18 09:46: VS-okay no labs pt refusing all meds other than enoxaparin per nursing report Original Note: INVOLUNTARY STATUS AWAITING A BED IN A PSYCHIATRIC FACILITY pt agitated vs ok, no labs
[2018-03-19 08:00] VITALS: BP 135/86; PULSE 69; RESP 17; TEMP 36.5; O2SAT 99
[2018-03-19] MEDS: Enoxaparin 120 MG/0.8 ML SYR SC ×2 (08:38→20:26)
--- NOTE | 2018-03-19 09:11 | NUR.NOTE ---
Nursing Note: 0870 Pt agreeable to taking Lovenox, this nurse had come into room for administration. Pt asked to give shot to self but after reading another nurse's note regarding the issues surrounding self administration of this medication, Pt was agreeable to letting RN give this injection. Pt then stated he was too uncomfortable to allow a physical assessment at this time. Will continue to monitor.
--- NOTE | 2018-03-19 15:36 | CMPROGNOTE_ITS ---
Care Management Progress Note Care Plan Rodney Hernandez 03/19/18 Involuntary Admission (EE) Rodney has shown an improvement in regulation thus far today. He is articulating his needs and engaging more appropriately with staff. Safety plan will remain the same at this time to ensure a longer period of observation. Rodney expresses understanding of his care plan and process of involuntary placement at another facility. 1. Suicide Precautions 2. Patient can remain in personal clothing 3. No other Personal belongings in room 4. Please follow the policy on the admitted behavioral health patient 5. Patient may have cell phone in room, and phone ore charger when needed. Patient may have earphones. 6. No visitors at this time 7. Finger foods only. No utensils. 8. Comfort bath system for hygiene 9. Supervised bathroom privileges 10. May have TV and remote privileges 11. One on one supervision by a DIORAMA MODEL MAKER, WOOD GOUGER, dj instructor. [facility] will be coordinating placement at inpatient facility. Patient is currently involuntarily at [facility] and seeking inpatient admission when a bed becomes available. [facility] Frontline Senior Construction Manager will continue seeking placement. Please contact the Vendor Management Specialist Crane Manager ([phone]) and [facility] Senior Construction Manager ([phone]) for any needed changes in the Safety Plan. Safety plan has been provided to interdepartmental care team including Clinical Coordinator, Nursing Melter Supervisor Electric Arc Furnace.
[2018-03-19 15:45] VITALS: BP 112/67; PULSE 69; RESP 16; TEMP 36.4; O2SAT 99
--- NOTE | 2018-03-19 15:47 | ERMH_ITS ---
Presenting issue: [] *How did they arrive here at ER and why did they come: [Rodney came to the ER with police following making threats against medical staff and himself. ] Precipitating Factors: [] *Assessment of Safety SI / HI- (Address delusions if pertaining to the SI/ HI) [Risk of harm to self and others as he has made recent creditable threats. This included the threat to get a gun and start shooting people. He was unable to have a calm conversation with this clinician. This puts him in the high risk category. He should not be allowed access to anything that can be used as a weapon against other people, including silverware and sharps. He currently denies SI/HI. ] Disposition: [] *Behavior: [Aggressive] *Eye Contact: [intense] *Mood: [angry with human services (sometimes calls [facility] human resources)] *Affect: [agitated, elevated, pressured speech] *Appetite: [fair] *Sleep (trouble falling/staying asleep): [would not answer] Plan: (please elaborate and include that physician is consulted with plan and/ or placement): [Continue to seek psychiatric placement. At this time, he continues to present as high risk. Precautions should be taken to avoid injury to others, and to avoid him eloping. He has asked that no one from [facility] speak with him.] Provisional Diagnosis:(only if required by physician): [] AXIS 5 Case Handover: Done with ED nurse (name): [Mary Anne] Date & Time [03/19/18 16: 08] Huddle: done with ED staff (for boarding clients): [] Yes [x] No Date/Time [] Referral for Case management: Has phone call for introduction been made [] Yes [x] No Referral in EMR: Done and sent? [] Yes [x] NO Clinicians Name and title and Signature: [Leticia Crocker BA [facility] [place]] Make sure that you are photocopying and submitting this to [facility] records dept.to be scanned into chart
--- NOTE | 2018-03-19 17:40 | PDOC.PROG ---
Date of Service: 03/19/18 Time of Service: 17:40 Assessment/Plan - Assessment/Plan (1) Bipolar disorder with psychotic features Plan: Continue to hold the patient is an inpatient pending transfer to a psychiatric facility. We can offer supportive care and recommend medications but unfortunately he can refuse them unless he gets violent with the staff cannot be medicated. History of Present Illness - History of Present Illness Chief Complaint: Poppy History of Present Illness: When I went to see the patient he was sleeping. I did not awaken him as he has become aggressive and verbally abusive with the staff when people approach him. He continues to refuse to take any antipsychotic medications. It was reported in team meeting this morning that the patient while giving himself his Lovenox shots had waved his needle at nursing staff in a threatening manner. He is no longer allowed to give his Lovenox shots to himself and it has to be administered by nursing staff. He continues to be held under EE status pending transfer to an inpatient psychiatric facility. At present time there are no in [facility] beds available for transfer. Review of Systems - Medications/Allergies Allergies/Adverse Reactions: Allergies Allergy/AdvReac Type Severity Reaction Status Date / Time No Known Allergies Allergy Unverified 03/16/18 18:44 Medications: Current Medications Acetaminophen (Tylenol) 0 mg PO Q4H PRN PRN Al Hydrox/Mg Hydrox/Simethicone (Mylanta Liquid) 30 ml PO Q2H PRN PRN Dimethicone/Zinc Oxide (Nhan Protect Cream) 0 gm TP PRN PRN Divalproex Sodium (Depakote) 250 mg PO TID [facility] Last Admin: 03/19/18 13:17 Dose: Not Given Docusate Sodium (Colace) 100 mg PO TID PRN PRN Enoxaparin Sodium (Lovenox) 120 mg SC BID [facility] Last Admin: 03/19/18 08:38 Dose: 120 mg Haloperidol (Haldol) 5 mg PO TID PRN PRN Reason: Severe agitation Haloperidol Lactate (Haldol Injection) 5 mg IM/IV Q6H PRN PRN Reason: Severe agitation IV Miscellaneous Supplies () 1 each IV DIRECTED [facility] Lorazepam (Ativan) 1 mg PO TID PRN PRN PRN Reason: Agitation Lorazepam (Ativan Injection) 1 mg IM Q3H PRN PRN PRN Reason: Agitation Magnesium Hydroxide (Milk Of Magnesia) 30 ml PO DAILY PRN PRN Polyethylene Glycol (Miralax) 17 gm PO DAILY PRN PRN PRN Reason: Constipation Quetiapine Fumarate (Seroquel) 100 mg PO HS RONAK Last Admin: 03/18/18 21:57 Dose: Not Given Sodium Chloride (Saline Flush 10 Ml Syringe) 0 ml IVP PRN PRN Objective - Exam Vitals and I&O: Vital Signs Temp 36.4 C L 03/19/18 15:45 Pulse 69 03/19/18 15:45 Resp 16 03/19/18 15:45 BP 112/67 03/19/18 15:45 Pulse Ox 99 03/19/18 15:45 Intake & Output 03/18/18 03/19/18 03/19/18 23:59 11:59 23:59 Intake Total 2079 Balance 2079 Intake: Oral 2079 Other: Urine Color Yellow Urine Appearance Clear Urine Odor Normal Comment pt voiding ad bharati in toilet; urine not assessed Pt voiding independently in toilet. Voiding Methods Toilet Toilet - Results Results: Laboratory Results WBC 11.14 k/cumm (4.4-10.8) H 03/16/18 20: RBC 5.12 m/cumm (4.50-6.00) 03/16/18 20:19 Hgb 16.2 g/dL (13.5-17.5) 03/16/18 20:19 Hct 47.0 % (40.0-50.0) 03/16/18 20: MCV 91.8 fL (80-95) 03/16/18 20:19 MCH 31.6 pg (27.0-33.0) 03/16/18 20:19 MCHC 34.5 g/dL (32.0-36.0) 03/16/18 20:19 RDW 13.3 % (11.8-14.1) 03/16/18 20:19 Plt Count 220 x1000/uL (130-400) 03/16/18 20:19 MPV 11.3 fL (8.0-11.0) H 03/16/18 20:19 Immature Gran % 0.4 03/16/18 20:19 Neutrophils % 77.1 03/16/18 20:19 Lymphocytes % 16.2 03/16/18 20:19 Monocytes % 5.6 03/16/18 20:19 Eosinophils % 0.5 03/16/18 20:19 Basophils % 0.2 03/16/18 20:19 Absolute Neutrophils 8.59 k/cumm (1.2-6.7) H 03/16/18 20:19 Absolute Lymphocytes 1.80 k/cumm (1.2-3.4) 03/16/18 20:19 Absolute Monocytes 0.62 k/cumm (0.11-0.7) 03/16/18 20:19 Absolute Eosinophils 0.06 k/cumm (0.0-0.7) 03/16/18 20:19 Absolute Basophils 0.02 k/cumm (0.0-0.2) 03/16/18 20:19 PT 10.1 sec (9.3-10.8) 03/16/18 20:19 INR 1.0 (1.0-3.5) 03/16/18 20:19 APTT 24.1 sec (21.0-31.4) 03/16/18 20:19 Sodium 139 mmol/L (136-145) 03/16/18 20:19 Potassium 3.5 mmol/L (3.5-5.1) 03/16/18 20:19 Chloride 103 mmol/L (98-107) 03/16/18 20:19 Carbon Dioxide 24.3 mmol/L (21.0-32.0) 03/16/18 20:19 Anion Gap 11.7 mmol/L (3-11) H 03/16/18 20:19 BUN 15 mg/dL (7-18) 03/16/18 20:19 Creatinine 1.07 mg/dL (0.70-1.30) 03/16/18 20:19 Estimated GFR/1.73 m2 >= 60.00 (mL/min/1.73m2) 03/16/18 20:19 Glucose 105 mg/dL (70-100) H 03/16/18 20:19 Calcium 9.3 mg/dL (8.5-10.1) 03/16/18 20:19 Urine Color Sarah (Yellow) 03/17/18 16:15 Urine Clarity Clear 03/17/18 16:15 Urine pH 6.5 (5-8) 03/17/18 16:15 Ur Specific [place] 1.025 (1.005-1.025) 03/17/18 16:15 Urine Protein Negative mg/dL (Negative) 03/17/18 16:15 Urine Ketones 40 mg/dL (Negative) H 03/17/18 16:15 Urine Blood Negative (Negative) 03/17/18 16:15 Urine Nitrite Negative (Negative) 03/17/18 16:15 Urine Bilirubin Small (Negative) H 03/17/18 16:15 Urine Urobilinogen 4.0 EU/dL (Up TO 0.2) H 03/17/18 16:15 Ur Leukocyte Esterase Negative (Negative) 03/17/18 16:15 Urine Glucose Negative mg/dL (Negative) 03/17/18 16:15 Urine Opiates Screen Negative (Negative) 03/17/18 16:15 Urine Methadone Screen Negative (Negative) 03/17/18 16:15 Ur Barbiturates Screen Negative (Negative) 03/17/18 16:15 Ur Tricyclics Screen Negative (Negative) 03/17/18 16:15 Ur Amphetamines Screen Negative (Negative) 03/17/18 16:15 U Benzodiazepines Scrn Negative (Negative) 03/17/18 16:15 Urine Cocaine Screen Negative (Negative) 03/17/18 16:15 Ur THC Screen Positive (Negative) 03/17/18 16:15 Ethyl Alcohol < 3.0 mg/dL (<3) 03/16/18 20:19
--- NOTE | 2018-03-19 17:46 | PDOC.PROG_ITS ---
Date of Service: 03/19/18 Time of Service: 17:40 Assessment/Plan - Assessment/Plan (1) Bipolar disorder with psychotic features Plan: Continue to hold the patient is an inpatient pending transfer to a psychiatric facility. We can offer supportive care and recommend medications but unfortunately he can refuse them unless he gets violent with the staff cannot be medicated. History of Present Illness - History of Present Illness Chief Complaint: Poppy History of Present Illness: When I went to see the patient he was sleeping. I did not awaken him as he has become aggressive and verbally abusive with the staff when people approach him. He continues to refuse to take any antipsychotic medications. It was reported in team meeting this morning that the patient while giving himself his Lovenox shots had waved his needle at nursing staff in a threatening manner. He is no longer allowed to give his Lovenox shots to himself and it has to be administered by nursing staff. He continues to be held under EE status pending transfer to an inpatient psychiatric facility. At present time there are no in [facility] beds available for transfer. Review of Systems - Medications/Allergies Allergies/Adverse Reactions: Allergies Allergy/AdvReac Type Severity Reaction Status Date / Time No Known Allergies Allergy Unverified 03/16/18 18:44 Medications: Current Medications Acetaminophen (Tylenol) 0 mg PO Q4H PRN PRN Al Hydrox/Mg Hydrox/Simethicone (Mylanta Liquid) 30 ml PO Q2H PRN PRN Dimethicone/Zinc Oxide (Nhan Protect Cream) 0 gm TP PRN PRN Divalproex Sodium (Depakote) 250 mg PO TID [facility] Last Admin: 03/19/18 13:17 Dose: Not Given Docusate Sodium (Colace) 100 mg PO TID PRN PRN Enoxaparin Sodium (Lovenox) 120 mg SC BID [facility] Last Admin: 03/19/18 08:38 Dose: 120 mg Haloperidol (Haldol) 5 mg PO TID PRN PRN Reason: Severe agitation Haloperidol Lactate (Haldol Injection) 5 mg IM/IV Q6H PRN PRN Reason: Severe agitation IV Miscellaneous Supplies () 1 each IV DIRECTED [facility] Lorazepam (Ativan) 1 mg PO TID PRN PRN PRN Reason: Agitation Lorazepam (Ativan Injection) 1 mg IM Q3H PRN PRN PRN Reason: Agitation Magnesium Hydroxide (Milk Of Magnesia) 30 ml PO DAILY PRN PRN Polyethylene Glycol (Miralax) 17 gm PO DAILY PRN PRN PRN Reason: Constipation Quetiapine Fumarate (Seroquel) 100 mg PO HS RONAK Last Admin: 03/18/18 21:57 Dose: Not Given Sodium Chloride (Saline Flush 10 Ml Syringe) 0 ml IVP PRN PRN Objective - Exam Vitals and I&O: Vital Signs Temp 36.4 C L 03/19/18 15:45 Pulse 69 03/19/18 15:45 Resp 16 03/19/18 15:45 BP 112/67 03/19/18 15:45 Pulse Ox 99 03/19/18 15:45 Intake & Output 03/18/18 03/19/18 03/19/18 23:59 11:59 23:59 Intake Total 2079 Balance 2079 Intake: Oral 2079 Other: Urine Color Yellow Urine Appearance Clear Urine Odor Normal Comment pt voiding ad bharati in toilet; urine not assessed Pt voiding independently in toilet. Voiding Methods Toilet Toilet - Results Results: Laboratory Results WBC 11.14 k/cumm (4.4-10.8) H 03/16/18 20: RBC 5.12 m/cumm (4.50-6.00) 03/16/18 20:19 Hgb 16.2 g/dL (13.5-17.5) 03/16/18 20:19 Hct 47.0 % (40.0-50.0) 03/16/18 20: MCV 91.8 fL (80-95) 03/16/18 20:19 MCH 31.6 pg (27.0-33.0) 03/16/18 20:19 MCHC 34.5 g/dL (32.0-36.0) 03/16/18 20:19 RDW 13.3 % (11.8-14.1) 03/16/18 20:19 Plt Count 220 x1000/uL (130-400) 03/16/18 20:19 MPV 11.3 fL (8.0-11.0) H 03/16/18 20:19 Immature Gran % 0.4 03/16/18 20:19 Neutrophils % 77.1 03/16/18 20:19 Lymphocytes % 16.2 03/16/18 20:19 Monocytes % 5.6 03/16/18 20:19 Eosinophils % 0.5 03/16/18 20:19 Basophils % 0.2 03/16/18 20:19 Absolute Neutrophils 8.59 k/cumm (1.2-6.7) H 03/16/18 20:19 Absolute Lymphocytes 1.80 k/cumm (1.2-3.4) 03/16/18 20:19 Absolute Monocytes 0.62 k/cumm (0.11-0.7) 03/16/18 20:19 Absolute Eosinophils 0.06 k/cumm (0.0-0.7) 03/16/18 20:19 Absolute Basophils 0.02 k/cumm (0.0-0.2) 03/16/18 20:19 PT 10.1 sec (9.3-10.8) 03/16/18 20:19 INR 1.0 (1.0-3.5) 03/16/18 20:19 APTT 24.1 sec (21.0-31.4) 03/16/18 20:19 Sodium 139 mmol/L (136-145) 03/16/18 20:19 Potassium 3.5 mmol/L (3.5-5.1) 03/16/18 20:19 Chloride 103 mmol/L (98-107) 03/16/18 20:19 Carbon Dioxide 24.3 mmol/L (21.0-32.0) 03/16/18 20:19 Anion Gap 11.7 mmol/L (3-11) H 03/16/18 20:19 BUN 15 mg/dL (7-18) 03/16/18 20:19 Creatinine 1.07 mg/dL (0.70-1.30) 03/16/18 20:19 Estimated GFR/1.73 m2 >= 60.00 (mL/min/1.73m2) 03/16/18 20:19 Glucose 105 mg/dL (70-100) H 03/16/18 20:19 Calcium 9.3 mg/dL (8.5-10.1) 03/16/18 20:19 Urine Color Sarah (Yellow) 03/17/18 16:15 Urine Clarity Clear 03/17/18 16:15 Urine pH 6.5 (5-8) 03/17/18 16:15 Ur Specific [place] 1.025 (1.005-1.025) 03/17/18 16:15 Urine Protein Negative mg/dL (Negative) 03/17/18 16:15 Urine Ketones 40 mg/dL (Negative) H 03/17/18 16:15 Urine Blood Negative (Negative) 03/17/18 16:15 Urine Nitrite Negative (Negative) 03/17/18 16:15 Urine Bilirubin Small (Negative) H 03/17/18 16:15 Urine Urobilinogen 4.0 EU/dL (Up TO 0.2) H 03/17/18 16:15 Ur Leukocyte Esterase Negative (Negative) 03/17/18 16:15 Urine Glucose Negative mg/dL (Negative) 03/17/18 16:15 Urine Opiates Screen Negative (Negative) 03/17/18 16:15 Urine Methadone Screen Negative (Negative) 03/17/18 16:15 Ur Barbiturates Screen Negative (Negative) 03/17/18 16:15 Ur Tricyclics Screen Negative (Negative) 03/17/18 16:15 Ur Amphetamines Screen Negative (Negative) 03/17/18 16:15 U Benzodiazepines Scrn Negative (Negative) 03/17/18 16:15 Urine Cocaine Screen Negative (Negative) 03/17/18 16:15 Ur THC Screen Positive (Negative) 03/17/18 16:15 Ethyl Alcohol < 3.0 mg/dL (<3) 03/16/18 20:19
--- NOTE | 2018-03-19 23:08 | NUR.NOTE ---
Nursing Note: 2244 Pt has been generally calm and this shift. He refused his 0800 oral medications but accepted the nurse administering his scheduled enoxaparin. At this time the CPSO reports that he has increasing agitation. Pt request to know the name of the Security staff person in the wright. When the SPEECH THERAPY TEACHER told him the name, the pt said Thank you. and calmed down.
[2018-03-19 23:22] VITALS: BP 127/86; PULSE 83; RESP 19; TEMP 36.3; O2SAT 98
[2018-03-20 06:55] LABS: HCT 43.4 % (40.0-50.0); HGB 14.8 g/dL (13.5-17.5); Mean Corp. HGB Concentration 34.1 g/dL (32.0-36.0); Mean Corpuscular Hemoglobin 31.8 pg (27.0-33.0); Mean Corpuscular Volume 93.1 fL (80-95); Mean Platelet Volume 11.8 fL (8.0-11.0); Platelet Count 196 x1000/uL (130-400); RBC 4.66 m/cumm (4.50-6.00); White Blood Cell Count 8.24 k/cumm (4.4-10.8)
[2018-03-20 07:30] VITALS: BP 120/75; PULSE 67; RESP 18; TEMP 36.6; O2SAT 99
[2018-03-20] MEDS: Enoxaparin 120 MG/0.8 ML SYR SC ×2 (08:00→19:48)
--- NOTE | 2018-03-20 12:02 | PDOC.CMPRO ---
Care Management Progress Note Care Plan Rodney Hernandez 03/20/18 Involuntary Admission (EE) Rodney had a period of time this morning where he was again advocating for leaving [facility] and shared frustrations at lack of bed availability for stabilization. He remains animated in interaction and has been managed well with some re-direction, re-assurance and supportive listening. He regulates well with use of music on his phone per RN. Rodney expresses understanding of his care plan and process of involuntary placement at another facility. No changes to care plan at this time. 1. Suicide Precautions 2. Patient can remain in personal clothing 3. No other Personal belongings in room 4. Please follow the policy on the admitted behavioral health patient 5. Patient may have cell phone in room, and phone synchronizer when needed. Patient may have earphones. 6. No visitors at this time 7. Finger foods only. No utensils. 8. Comfort bath system for hygiene 9. Supervised bathroom privileges 10. May have TV and remote privileges 11. One on one supervision by a COTTON EXPERT, AGRICULTURAL PRODUCE WASHER, golf course laborer. [facility] will be coordinating placement at inpatient facility. Patient is currently involuntarily at [facility] and seeking inpatient admission when a bed becomes available. [facility] Frontline Printed Circuit Boards Inspector will continue seeking placement. Please contact the Honeycomb Decapper Toolroom Attendant ([phone]) and [facility] Printed Circuit Boards Inspector ([phone]) for any needed changes in the Safety Plan. Safety plan has been provided to interdepartmental care team including Clinical Coordinator, Nursing Flame Cutting Machine Operator Helper.
--- NOTE | 2018-03-20 13:43 | PROG.BLANK ---
Date of Service: 03/20/18 Time of Service: 13:43 Progress Note Patient remains in EE status awaiting transfer to a psychiatric bed. Patient went through. This morning which he was advocating for living [facility] frustration for adjudicated his mental health case. He alleges that he has been on the phone call his operators teacher and indicated that he is requesting a package sorter to adjudicate his case. I explained to him that he needs to be cleared by state psychiatrist before he could be released. Because of his alleged homicidal threats he is considered a danger to society and cannot be allowed to leave voluntarily. Tries to amuse himself with the use of his phone listening to music on his cell phone. See the hearing care professional's note regarding his current mental health care plans. I have not seen him back from [facility] human services today to discuss any updates on obtaining a psychiatric bed but the hearing care professional indicated to me that so far there are no facilities were able to accept him.
--- NOTE | 2018-03-20 13:47 | PROG.BLANK_ITS ---
Date of Service: 03/20/18 Time of Service: 13:43 Progress Note Patient remains in EE status awaiting transfer to a psychiatric bed. Patient went through. This morning which he was advocating for living [facility] frustration for adjudicated his mental health case. He alleges that he has been on the phone call his electrical & instrumentation supervisor and indicated that he is requesting a seal skinner to adjudicate his case. I explained to him that he needs to be cleared by state psychiatrist before he could be released. Because of his alleged homicidal threats he is considered a danger to society and cannot be allowed to leave voluntarily. Tries to amuse himself with the use of his phone listening to music on his cell phone. See the rn urgent care's note regarding his current mental health care plans. I have not seen him back from [facility] human services today to discuss any updates on obtaining a psychiatric bed but the rn urgent care indicated to me that so far there are no facilities were able to accept him.
--- NOTE | 2018-03-20 15:42 | PDOC.MHCN ---
Date of Service: 03/20/18 Time of Service: 15:42 Presenting Issue: *How did they arrive here at ER and why did they come: Rodney came in following an incident in which he threatened to kill his healthcare team. He was put onto involuntary status at that time. He appears quite grandiose and presents with some signs of brendan. Precipitating Factors: *Assessment of Safety SI/HI (address delusions if pertaining to the SI/HI) He continues to present as high risk. This was in evidence today when he was aggressive with this clinician. He is quite clear that he does not want to speak with anyone from [facility]. This clinician did not press him to continue a conversation, as there was no benefit of agitating him. Disposition: *Behavior: aggressive, pressured speech *Eye Contact: intense *Mood: I'm fine *Affect: elevated *Appetite: did not discuss *Sleep (trouble falling/staying asleep): did not discuss Plan: At this time, there are no appropriate beds in the state. Rodney should remain on EE status, as he continues to present as high risk. Security staff have been arranged through tomorrow. He will be re-screened tomorrow by [facility]. This clinician spoke with Zeina from care management, and the decision is to not change any of his plan at this time. He continues to refuse medication and ask for a clinical systems analyst.
--- NOTE | 2018-03-20 15:58 | PDOC.MHCN_ITS ---
Date of Service: 03/20/18 Time of Service: 15:42 Presenting Issue: *How did they arrive here at ER and why did they come: Rodney came in following an incident in which he threatened to kill his healthcare team. He was put onto involuntary status at that time. He appears quite grandiose and presents with some signs of brendan. Precipitating Factors: *Assessment of Safety SI/HI (address delusions if pertaining to the SI/HI) He continues to present as high risk. This was in evidence today when he was aggressive with this clinician. He is quite clear that he does not want to speak with anyone from [facility]. This clinician did not press him to continue a conversation, as there was no benefit of agitating him. Disposition: *Behavior: aggressive, pressured speech *Eye Contact: intense *Mood: I'm fine *Affect: elevated *Appetite: did not discuss *Sleep (trouble falling/staying asleep): did not discuss Plan: At this time, there are no appropriate beds in the state. Rodney should remain on EE status, as he continues to present as high risk. Security staff have been arranged through tomorrow. He will be re-screened tomorrow by [facility]. This clinician spoke with Zeina from care management, and the decision is to not change any of his plan at this time. He continues to refuse medication and ask for a grading machine feeder.
[2018-03-20 16:01] VITALS: BP 133/62; PULSE 88; RESP 18; TEMP 36.2; O2SAT 97
[2018-03-21 00:14] VITALS: BP 124/69; PULSE 66; RESP 13; TEMP 36.3; O2SAT 99
[2018-03-21] MEDS: Enoxaparin 120 MG/0.8 ML SYR SC ×2 (08:06→19:40)
--- NOTE | 2018-03-21 11:39 | PROG.BLANK ---
Date of Service: 03/21/18 Time of Service: 11:39 Progress Note Patient continues to be in EE status. He continues to demonstrate symptoms of brendan. He continues to make phone calls to the court and reportedly to his starcher and tenter range feeder and to the state patient advocacy. At times he will get belligerent and lead worker of housekeeping and laundry the doorway yelling. He insists that all he needs since his Lovenox and he does not need any psychiatric medications. He impresses upon me that it is my duty to prescribe his Lovenox for him. I indicated to him that he is receiving his Lovenox was here at the hospital and that he has a prescription from his primary care provider for Lovenox. I also informed him that he needs to take his antipsychotic medications which she refuses to take. The more engaged with him the more aggressive he gets and therefore I ended our conversation. Per my conversation with care management this morning they are still waiting acceptance to an inpatient psychiatric bed and none are available as of this morning.
--- NOTE | 2018-03-21 11:43 | PROG.BLANK_ITS ---
Date of Service: 03/21/18 Time of Service: 11:39 Progress Note Patient continues to be in EE status. He continues to demonstrate symptoms of brendan. He continues to make phone calls to the court and reportedly to his trust and estates attorney and to the state patient advocacy. At times he will get belligerent and gas pumping station supervisor the doorway yelling. He insists that all he needs since his Lovenox and he does not need any psychiatric medications. He impresses upon me that it is my duty to prescribe his Lovenox for him. I indicated to him that he is receiving his Lovenox was here at the hospital and that he has a prescription from his primary care provider for Lovenox. I also informed him that he needs to take his antipsychotic medications which she refuses to take. The more engaged with him the more aggressive he gets and therefore I ended our conversation. Per my conversation with care management this morning they are still waiting acceptance to an inpatient psychiatric bed and none are available as of this morning.
--- NOTE | 2018-03-21 13:37 | PDOC.CMPRO ---
Date of Service: 03/21/18 Time of Service: 13:37 Care Management Progress Note Care Plan Rodney Hernandez 03/21/18 Involuntary Admission (EE) Rodney has been ambulating in his room this morning, in his doorway speaking with staff and appropriate. He has cleaned up with comfort bath system and finds that this is adequate. He remains animated in interaction and has been managed well with some re-direction, re-assurance and supportive listening. Rodney expresses understanding of his care plan and process of involuntary placement at another facility. Referral was refaxed to [facility] for review, [facility] Awaiting decision from [place]. DEANDRA spoke with KOKI Martinez, and reviewed care plan, no changes needed to care plan at this time. DEANDRA notified KOKI Murray Hydrometeorological Technician, of the above. 1. Suicide Precautions 2. Patient can remain in personal clothing 3. No other Personal belongings in room 4. Please follow the policy on the admitted behavioral health patient 5. Patient may have cell phone in room, and phone ground water technician when needed. Patient may have earphones. 6. No visitors at this time 7. Finger foods only. No utensils. 8. Comfort bath system for hygiene 9. Supervised bathroom privileges 10. May have TV and remote privileges 11. One on one supervision by a HARLEEN, ENGINEERING FACULTY MEMBER, selenium plant operator. [facility] will be coordinating placement at inpatient facility. Patient is currently involuntarily at [facility] and seeking inpatient admission when a bed becomes available. [facility] Frontline Environmental Air Specialist will continue seeking placement. Please contact the Director Regulatory Compliance Kier Hand ([phone]) and [facility] Environmental Air Specialist ([phone]) for any needed changes in the Safety Plan. Safety plan has been provided to interdepartmental care team including Clinical Coordinator, Nursing Hydrometeorological Technician.
--- NOTE | 2018-03-21 13:40 | CMPROGNOTE_ITS ---
Date of Service: 03/21/18 Time of Service: 13:37 Care Management Progress Note Care Plan Rodney Hernandez 03/21/18 Involuntary Admission (EE) Rodney has been ambulating in his room this morning, in his doorway speaking with staff and appropriate. He has cleaned up with comfort bath system and finds that this is adequate. He remains animated in interaction and has been managed well with some re-direction, re-assurance and supportive listening. Rodney expresses understanding of his care plan and process of involuntary placement at another facility. Referral was refaxed to [facility] for review, no other beds available in the [facility]. Awaiting decision from [place]. DEANDRA spoke with KOKI Martinez, and reviewed care plan, no changes needed to care plan at this time. DEANDRA notified KOKI Murray Bug Trimmer, of the above. 1. Suicide Precautions 2. Patient can remain in personal clothing 3. No other Personal belongings in room 4. Please follow the policy on the admitted behavioral health patient 5. Patient may have cell phone in room, and phone cab worker when needed. Patient may have earphones. 6. No visitors at this time 7. Finger foods only. No utensils. 8. Comfort bath system for hygiene 9. Supervised bathroom privileges 10. May have TV and remote privileges 11. One on one supervision by a HARLEEN, OIL WELL FISHING TOOL TECHNICIAN, coordinate measuring machine programmer. [facility] will be coordinating placement at inpatient facility. Patient is currently involuntarily at [facility] and seeking inpatient admission when a bed becomes available. [facility] Frontline Gis Coordinator will continue seeking placement. Please contact the Commercial Loan Assistant Glass Technician ([phone]) and [facility] Gis Coordinator ([phone]) for any needed changes in the Safety Plan. Safety plan has been provided to interdepartmental care team including Clinical Coordinator, Nursing Bug Trimmer.
[2018-03-21 14:36] VITALS: BP 137/81; PULSE 114; RESP 18; TEMP 36; O2SAT 96
--- NOTE | 2018-03-21 17:19 | NUR.NOTE ---
Pt recieved call from patent prosecution paralegal. Pt talked on the phone with them. Pt is calm and appreciate at this time. Nursing Note:
[2018-03-21] MEDS: Docusate Sodium 100 MG CAP PO (19:40)
[2018-03-21 23:43] VITALS: BP 139/88; PULSE 80; RESP 18; TEMP 36.8; O2SAT 96
[2018-03-22 08:29] VITALS: BP 119/71; PULSE 75; RESP 18; TEMP 36.1; O2SAT 96
[2018-03-22] MEDS: Enoxaparin 120 MG/0.8 ML SYR SC ×2 (08:29→20:01)
--- NOTE | 2018-03-22 11:20 | ERMH_ITS ---
Presenting issue: *How did they arrive here at ER and why did they come: Patient initially arrived at [facility] ED via police for mental health disturbances. Precipitating Factors: *Assessment of Safety SI / HI- (Address delusions if pertaining to the SI/ HI) Patient is refusing to talk to this [facility] staff member and he states that he does not want to talk to any other [facility] staff. Disposition: *Behavior: Patient is sitting on the hospital bed watching things on his phone *Eye Contact: Appropriate *Mood: Initially calm but became agitated when speaking with this copy writer *Affect: Broad *Appetite: Good *Sleep (trouble falling/staying asleep): According to hospital staff the patient was awake all night Plan: (please elaborate and include that physician is consulted with plan and/ or placement): Patient will remain at [facility] on an involuntary status until a bed becomes available in a mental health treatment facility. Provisional Diagnosis:(only if required by physician): [] AXIS 5 Case Handover: Done with ED nurse (name): [] Date & Time [] Huddle: done with ED staff (for boarding clients): [] Yes [] No Date /Time [] Referral for Case management: Has phone call for introduction been made [] Yes [] No Referral in EMR: Done and sent? [] Yes [] NO Clinicians Name and title and Signature: [Carolyn Noyola - [facility] Emergency Clinician] Make sure that you are photocopying and submitting this to [facility] records dept.to be scanned into chart
--- NOTE | 2018-03-22 11:29 | PDOC.CMPRO ---
Date of Service: 03/22/18 Time of Service: 11:29 Care Management Progress Note Care Plan Rodney Hernandez 03/22/18 Involuntary Admission (EE) Rodney has been ambulating in his room this morning, in his doorway speaking with staff and appropriate, he has run out of minutes on his phone at this time, though continues to listen to music on it. He has cleaned up with comfort bath system and finds that this is adequate. He remains animated in interaction and has been managed well with some re-direction, re-assurance and supportive listening. Rodney expresses understanding of his care plan and process of involuntary placement at another facility. [facility]TRAN Leon,. Adrienne held those in attendance Juan (RN), Terri (RN Telephone Solicitor Supervisor), Carolyn ([facility]), and this junior copywriter. Discussed care plan which is posted below. 1. Suicide Precautions 2. Patient can remain in personal clothing 3. No other Personal belongings in room 4. Please follow the policy on the admitted behavioral health patient 5. Patient may have cell phone in room, and phone operations vice president when needed. Patient may have earphones. 6. No visitors at this time 7. Finger foods only. No utensils. 8. Comfort bath system for hygiene 9. Supervised bathroom privileges 10. May have TV and remote privileges 11. One on one supervision by a HARLEEN, SUSTAINABILITY ENGINEER, semiconductor wafers etch operator. [facility] will be coordinating placement at inpatient facility. Patient is currently involuntarily at [facility] and seeking inpatient admission when a bed becomes available. [facility] Frontline Game Bird Farmer will continue seeking placement. Please contact the Pocket Marker Enterprise Software Developer ([phone]) and [facility] Game Bird Farmer ([phone]) for any needed changes in the Safety Plan. Safety plan has been provided to interdepartmental care team including Clinical Coordinator, Nursing Telephone Solicitor Supervisor.
--- NOTE | 2018-03-22 11:42 | CMPROGNOTE_ITS ---
Date of Service: 03/22/18 Time of Service: 11:29 Care Management Progress Note Care Plan Rodney Hernandez 03/22/18 Involuntary Admission (EE) Rodney has been ambulating in his room this morning, in his doorway speaking with staff and appropriate, he has run out of minutes on his phone at this time , though continues to listen to music on it. He has cleaned up with comfort bath system and finds that this is adequate. He remains animated in interaction and has been managed well with some re-direction, re-assurance and supportive listening. Rodney expresses understanding of his care plan and process of involuntary placement at another facility. Currently there are no beds available in the [facility] per BELTRAN Leon,. Adrienne held those in attendance Juan (RN), Terri (RN Senior Linux Administrator), Carolyn ([facility]), and this check writer salesperson. Discussed care plan which is posted below. 1. Suicide Precautions 2. Patient can remain in personal clothing 3. No other Personal belongings in room 4. Please follow the policy on the admitted behavioral health patient 5. Patient may have cell phone in room, and phone commissioned police officer when needed. Patient may have earphones. 6. No visitors at this time 7. Finger foods only. No utensils. 8. Comfort bath system for hygiene 9. Supervised bathroom privileges 10. May have TV and remote privileges 11. One on one supervision by a HARLEEN, THREE KNIFE TRIMMER, orthotist or prosthetist. [facility] will be coordinating placement at inpatient facility. Patient is currently involuntarily at [facility] and seeking inpatient admission when a bed becomes available. [facility] Frontline Restaurant Front Manager will continue seeking placement. Please contact the Repair Specialist Noc Technician ([phone]) and [facility] Restaurant Front Manager ([phone]) for any needed changes in the Safety Plan. Safety plan has been provided to interdepartmental care team including Clinical Coordinator, Nursing Senior Linux Administrator.
--- NOTE | 2018-03-22 13:47 | PDOC.PROG_ITS ---
Date of Service: 03/22/18 Assessment/Plan - Assessment/Plan (1) Bipolar disorder with psychotic features Assessment: Continue to hold the patient is an inpatient pending transfer to a psychiatric facility. We can offer supportive care and recommend medications but unfortunately he can refuse them unless he gets violent with the staff cannot be medicated (2) Constipation Assessment: Relieved with Colace History of Present Illness - History of Present Illness History of Present Illness: No new complaints, has been hemodynamically stable, is refusing to take medications. Eating and drinking states he was constipated until he took Colace this morning. On interview patient is extremely manic focused on his Lovenox injections and Colace he received today for his bowels and the male physician who is not listening to him. Patient is unable to be redirected. He easily becomes very irritated and escalates easily. Review of Systems - Review of Systems Other: Unable to obtain due to patient's manic, irritated demeanor. Patient does state that he was constipated but this has been resolved with Colace there are no other complaints identified - Medications/Allergies Allergies/Adverse Reactions: Allergies Allergy/AdvReac Type Severity Reaction Status Date / Time No Known Allergies Allergy Unverified 03/16/18 18:44 Medications: Current Medications Acetaminophen (Tylenol) 0 mg PO Q4H PRN PRN Al Hydrox/Mg Hydrox/Simethicone (Mylanta Liquid) 30 ml PO Q2H PRN PRN Dimethicone/Zinc Oxide (Nhan Protect Cream) 0 gm TP PRN PRN Divalproex Sodium (Depakote) 250 mg PO TID [facility] Last Admin: 03/22/18 12:11 Dose: Not Given Docusate Sodium (Colace) 100 mg PO TID PRN PRN Last Admin: 03/21/18 19:40 Dose: 100 mg Enoxaparin Sodium (Lovenox) 120 mg SC BID [facility] Last Admin: 03/22/18 08:29 Dose: 120 mg Haloperidol (Haldol) 5 mg PO TID PRN PRN Reason: Severe agitation Haloperidol Lactate (Haldol Injection) 5 mg IM/IV Q6H PRN PRN Reason: Severe agitation IV Miscellaneous Supplies () 1 each IV DIRECTED [facility] Lorazepam (Ativan) 1 mg PO TID PRN PRN PRN Reason: Agitation Lorazepam (Ativan Injection) 1 mg IM Q3H PRN PRN PRN Reason: Agitation Magnesium Hydroxide (Milk Of Magnesia) 30 ml PO DAILY PRN PRN Polyethylene Glycol (Miralax) 17 gm PO DAILY PRN PRN PRN Reason: Constipation Quetiapine Fumarate (Seroquel) 100 mg PO HS RONAK Last Admin: 03/21/18 22:13 Dose: Not Given Sodium Chloride (Saline Flush 10 Ml Syringe) 0 ml IVP PRN PRN Objective - Exam Vitals and I&O: Vital Signs Temp 36.1 C L 03/22/18 08:29 Pulse 75 03/22/18 08:29 Resp 18 03/22/18 08:29 BP 119/71 03/22/18 08:29 Pulse Ox 96 03/22/18 08:29 Intake & Output 03/21/18 03/22/18 03/22/18 23:59 11:59 23:59 Intake Total 240 960 Balance 240 960 Intake: Oral 240 960 Other: Urine Color Pale Urine Appearance Clear Urine Odor None Comment pt up AD [place] to void. independant Voiding Methods Toilet Toilet General: Alert, Mild distress (Agitated) Lungs: Clear to auscultation, Other (respirations even and unlabored) Cardiovascular: Regular rate Abdomen: Soft Neurological: Normal gait, Normal speech (Pressured), Other (moves all four extremities) Psych/Mental Status: denies: Mental status NL (Patient is manic), Mood NL ( Patient is easily agitated and escalates) - Results Results: Laboratory Results WBC 8.24 k/cumm (4.4-10.8) 03/20/18 06:25 RBC 4.66 m/cumm (4.50-6.00) 03/20/18 06:25 Hgb 14.8 g/dL (13.5-17.5) 03/20/18 06:25 Hct 43.4 % (40.0-50.0) 03/20/18 06:25 MCV 93.1 fL (80-95) 03/20/18 06:25 MCH 31.8 pg (27.0-33.0) 03/20/18 06:25 MCHC 34.1 g/dL (32.0-36.0) 03/20/18 06:25 RDW 13.0 % (11.8-14.1) 03/20/18 06:25 Plt Count 196 x1000/uL (130-400) 03/20/18 06:25 MPV 11.8 fL (8.0-11.0) H 03/20/18 06:25 Immature Gran % 0.4 03/16/18 20:19 Neutrophils % 77.1 03/16/18 20:19 Lymphocytes % 16.2 03/16/18 20:19 Monocytes % 5.6 03/16/18 20:19 Eosinophils % 0.5 03/16/18 20:19 Basophils % 0.2 03/16/18 20:19 Absolute Neutrophils 8.59 k/cumm (1.2-6.7) H 03/16/18 20:19 Absolute Lymphocytes 1.80 k/cumm (1.2-3.4) 03/16/18 20:19 Absolute Monocytes 0.62 k/cumm (0.11-0.7) 03/16/18 20:19 Absolute Eosinophils 0.06 k/cumm (0.0-0.7) 03/16/18 20:19 Absolute Basophils 0.02 k/cumm (0.0-0.2) 03/16/18 20:19 PT 10.1 sec (9.3-10.8) 03/16/18 20:19 INR 1.0 (1.0-3.5) 03/16/18 20:19 APTT 24.1 sec (21.0-31.4) 03/16/18 20:19 Sodium 139 mmol/L (136-145) 03/16/18 20:19 Potassium 3.5 mmol/L (3.5-5.1) 03/16/18 20:19 Chloride 103 mmol/L (98-107) 03/16/18 20:19 Carbon Dioxide 24.3 mmol/L (21.0-32.0) 03/16/18 20:19 Anion Gap 11.7 mmol/L (3-11) H 03/16/18 20:19 BUN 15 mg/dL (7-18) 03/16/18 20:19 Creatinine 1.07 mg/dL (0.70-1.30) 03/16/18 20:19 Estimated GFR/1.73 m2 >= 60.00 (mL/min/1.73m2) 03/16/18 20:19 Glucose 105 mg/dL (70-100) H 03/16/18 20:19 Calcium 9.3 mg/dL (8.5-10.1) 03/16/18 20:19 Urine Color Sarah (Yellow) 03/17/18 16:15 Urine Clarity Clear 03/17/18 16:15 Urine pH 6.5 (5-8) 03/17/18 16:15 Ur Specific Stoddard 1.025 (1.005-1.025) 03/17/18 16:15 Urine Protein Negative mg/dL (Negative) 03/17/18 16:15 Urine Ketones 40 mg/dL (Negative) H 03/17/18 16:15 Urine Blood Negative (Negative) 03/17/18 16:15 Urine Nitrite Negative (Negative) 03/17/18 16:15 Urine Bilirubin Small (Negative) H 03/17/18 16:15 Urine Urobilinogen 4.0 EU/dL (Up TO 0.2) H 03/17/18 16:15 Ur Leukocyte Esterase Negative (Negative) 03/17/18 16:15 Urine Glucose Negative mg/dL (Negative) 03/17/18 16:15 Urine Opiates Screen Negative (Negative) 03/17/18 16:15 Urine Methadone Screen Negative (Negative) 03/17/18 16:15 Ur Barbiturates Screen Negative (Negative) 03/17/18 16:15 Ur Tricyclics Screen Negative (Negative) 03/17/18 16:15 Ur Amphetamines Screen Negative (Negative) 03/17/18 16:15 U Benzodiazepines Scrn Negative (Negative) 03/17/18 16:15 Urine Cocaine Screen Negative (Negative) 03/17/18 16:15 Ur THC Screen Positive (Negative) 03/17/18 16:15 Ethyl Alcohol < 3.0 mg/dL (<3) 03/16/18 20:19
--- NOTE | 2018-03-22 16:21 | NUR.NOTE ---
Pt is starting to get worked up. States that mental health workers and doctors are not allowed in his room. Pt does not want the cadre to speak to him. Will continue to monitor pt. Patient will not take any medication except his scheduled Lovenox. Nursing Note:
[2018-03-22 20:53] VITALS: BP 153/90; PULSE 83; RESP 19; TEMP 36.3; O2SAT 98
[2018-03-23 06:51] LABS: Platelet Count 168 x1000/uL (130-400)
[2018-03-23] MEDS: Enoxaparin 120 MG/0.8 ML SYR SC ×2 (08:50→20:14)
[2018-03-23 09:08] VITALS: BP 152/92; PULSE 70; RESP 17; TEMP 37.3; O2SAT 98
--- NOTE | 2018-03-23 12:15 | ERMH_ITS ---
Presenting issue: *How did they arrive here at ER and why did they come: Patient initially arrived at the Emergency Department via Escalator Constructor for mental health disturbances. Precipitating Factors: *Assessment of Safety SI / HI- (Address delusions if pertaining to the SI/ HI) Client denies both SI and HI. Client appears agitated and poses as a potential threat to hospital staff and others who interact with him. Patient frequently identifies himself as Rodney Soto. Disposition: *Behavior: Patient is manic and walking about the hospital room *Eye Contact: Patient makes appropriate eye contact *Mood: Unstable, agitated *Affect: Liable *Appetite: Good *Sleep (trouble falling/staying asleep): Patient is not able to sleep Plan: (please elaborate and include that physician is consulted with plan and/ or placement): Patient will remain at the hospital on an involuntary status until a bed becomes available at a mental health treatment facility. Provisional Diagnosis:(only if required by physician): [] AXIS 5 Case Handover: Done with ED nurse (name): [] Date & Time [] Huddle: done with ED staff (for boarding clients): [] Yes [] No Date /Time [] Referral for Case management: Has phone call for introduction been made [] Yes [] No Referral in EMR: Done and sent? [] Yes [] NO Clinicians Name and title and Signature: [Carolyn Noyola - [facility] Emergency Clinician] Make sure that you are photocopying and submitting this to [facility] records dept.to be scanned into chart
--- NOTE | 2018-03-23 12:24 | PROG.BLANK ---
Date of Service: 03/23/18 Progress Note Interval history: This is a 37-year-old male patient with a past medical history significant for bipolar disorder who is currently on an involuntary hold on MedSurg while awaiting an inpatient psychiatric bed for acute psychosis and brendan. He currently refuses all medications except for Lovenox and Colace. He reported to staff that he did pass some bright red blood per rectum but there is no confirmation of this report. He has been awake all night. Very vocal, loud, escalating intermittently with grandiose thoughts. He has not had any physical or violent outbursts. Medically he has been stable. Physical exam: Skin is pink warm dry well perfused she is in no acute distress. Respirations are even and unlabored Assessment and plan: Bipolar disorder with acute psychosis/brendan: Patient currently refusing to take any medications. Will maintain safety precautions constant visual observation, involuntary hold per mental health. Case management is following. Will discharge to an inpatient psychiatric bed once one becomes available Reports of rectal bleeding: We will check stool for occult blood and CBC if patient is agreeable Constipation: Continues taking Colace, denies constipation at this time
--- NOTE | 2018-03-23 13:21 | PDOC.CMPRO ---
Date of Service: 03/23/18 Time of Service: 13:21 Care Management Progress Note Care Plan Rodney Hernandez 03/23/18 Involuntary Admission (EE) Rodney had an outburst this morning as his phone has run out of minutes and he wanted to use a hospital phone. Nursing staff provided Rodney with a corded phone which he was observed using and it was removed from his room after he made his phone call. Rodney continued to escalate and was walking around his room and was verbally aggressive during this time. Impregnator And Drier was present and Rodney shook the sports manager Chets hand and was appropriate with him, though was loud during interaction. DEANDRA requested Mildred [facility] Senior Network Administrator, to come to the hospital to meet with patient and to discuss his current presentation with staff. Mildred met with Rodney and states that at this time there is no beds available and has requested sports manager coverage from Nargis Beavers [facility],. DEANDRA spoke with AMBAR Gill, whom states that [facility] will be providing sports manager coverage. DEANDRA spoke with Sheriff Braeden, whom states that there is sports manager coverage from now until Sunday 03/25 @ 1500. BISHOP Barillas, called this junior copywriter and states that there may be availability later this week at [facility] and she will contact this junior copywriter tomorrow morning to discuss referral if a bed is available. Rodney escalated again this afternoon, he requested to see [facility] and Carolyn [facility], met with him. Rodney was verbally aggressive and loud when Carolyn was in the room. remained in the room at the same time which Rodney has a good relationship with. junior staff accountant requested a cordless phone for Rodney to use when he needs to make a call. DEANDRA spoke with KIRSTY Concepcion, who has supplied a cordless phone which is located in the nursing lounge for patient to use. [facility] will give patient the phone for use and remove it after he is done. 1. Suicide Precautions 2. Patient can remain in personal clothing 3. No other Personal belongings in room 4. Please follow the policy on the admitted behavioral health patient 5. Patient may have cell phone in room, and phone glass beveler when needed. Patient may have earphones. 6. No visitors at this time 7. Finger foods only. No utensils. 8. Comfort bath system for hygiene 9. Supervised bathroom privileges 10. May have TV and remote privileges 11. One on one supervision by a WARDROBE SPECIALTY WORKER, SUPERANNUATION CLERK, design technology professor. 12. May have phone privileges. Phone is cordless and located in junior staff accountant break room. Impregnator And Drier to provide patient with the phone and remove when he is finished. [facility] will be coordinating placement at inpatient facility. Patient is currently involuntarily at [facility] and seeking inpatient admission when a bed becomes available. [facility] Frontline Layout Man will continue seeking placement. Please contact the Violin Restorer Social Service Agency Director ([phone]) and [facility] Layout Man ([phone]) for any needed changes in the Safety Plan. Safety plan has been provided to interdepartmental care team including Clinical Coordinator, Nursing Instrument Worker.
--- NOTE | 2018-03-23 14:51 | CMPROGNOTE_ITS ---
Date of Service: 03/23/18 Time of Service: 13:21 Care Management Progress Note Care Plan Rodney Hernandez 03/23/18 Involuntary Admission (EE) Rodney had an outburst this morning as his phone has run out of minutes and he wanted to use a hospital phone. Nursing staff provided Rodney with a corded phone which he was observed using and it was removed from his room after he made his phone call. Rodney continued to escalate and was walking around his room and was verbally aggressive during this time. Home And Family Living Professor was present and Rodney shook the administrative medical director Chets hand and was appropriate with him, though was loud during interaction. DEANDRA requested Mildred [facility] Orthopedics Nurse, to come to the hospital to meet with patient and to discuss his current presentation with staff. Mildred met with Rodney and states that at this time there is no beds available and has requested administrative medical director coverage from Nargis Beavers [facility],. DEANDRA spoke with AMBAR Gill, whom states that [facility] will be providing administrative medical director coverage. DEANDRA spoke with Sheriff Braeden, whom states that there is administrative medical director coverage from now until Sunday 03/25 @ 1500. BISHOP Barillas, called this writer producer and states that there may be availability later this week at [facility] and she will contact this writer producer tomorrow morning to discuss referral if a bed is available. Rodney escalated again this afternoon, he requested to see [facility] and Carolyn [facility], met with him. Rodney was verbally aggressive and loud when Carolyn was in the room. remained in the room at the same time which Rodney has a good relationship with. staffing assistant requested a cordless phone for Rodney to use when he needs to make a call. DEANDRA spoke with KIRSTY Concepcion, who has supplied a cordless phone which is located in the nursing lounge for patient to use. [facility] will give patient the phone for use and remove it after he is done. 1. Suicide Precautions 2. Patient can remain in personal clothing 3. No other Personal belongings in room 4. Please follow the policy on the admitted behavioral health patient 5. Patient may have cell phone in room, and phone horticulture teacher when needed. Patient may have earphones. 6. No visitors at this time 7. Finger foods only. No utensils. 8. Comfort bath system for hygiene 9. Supervised bathroom privileges 10. May have TV and remote privileges 11. One on one supervision by a ELECTROPHYSIOLOGIST, CARBON CAPTURE POWER PLANT OPERATOR, single needle operator. 12. May have phone privileges. Phone is cordless and located in staffing assistant break room. Home And Family Living Professor to provide patient with the phone and remove when he is finished. [facility] will be coordinating placement at inpatient facility. Patient is currently involuntarily at [facility] and seeking inpatient admission when a bed becomes available. [facility] Frontline Head Athletic Trainer/Strength Coach will continue seeking placement. Please contact the Filter Cleaner Supervisor Fabrication ([phone]) and [facility] Head Athletic Trainer/Strength Coach ([phone]) for any needed changes in the Safety Plan. Safety plan has been provided to interdepartmental care team including Clinical Coordinator, Nursing Cookie Breaker.
[2018-03-23 16:01] VITALS: BP 149/84; PULSE 89; RESP 19; TEMP 36.4; O2SAT 97
--- NOTE | 2018-03-23 19:40 | ERMH_ITS ---
Presenting issue: *How did they arrive here at ER and why did they come: Client initially arrived to the Emergency Room via Police with concerns for mental health disturbances last Wednesday. Precipitating Factors: *Assessment of Safety SI / HI- (Address delusions if pertaining to the SI/ HI) Client has denied SI/HI and states that he has no delusional thinking. The patient believes that he is being kept at the hospital illegally and that the SCREEN REPAIRER CRUSHER is trying to help him get out of the hospital and that he is waiting for his black card with his millions to show up and get out of here. He states he is the smartest man ever and states that no one has any knowledge of what they are doing cause he knows everything better than anyone and can do their job better, that he is just here to get medications for his blood clots. Disposition: *Behavior: Client is very hyper and lots of hand movements with rambling speech *Eye Contact: Client makes very good eye contact with wide eyes *Mood: Client was calm at first then got very frustrated stating I did not have to be there that he was leaving Wednesday *Affect: Labial *Appetite: Good *Sleep (trouble falling/staying asleep): Appropriate Plan: (please elaborate and include that physician is consulted with plan and/ or placement): Client will remain on EE status and stay at [facility] until a psychiatric bed is available. At this time there are no beds available for him in his state. Provisional Diagnosis:(only if required by physician): AXIS 5 Case Handover: Done with ED nurse (name): Date & Time Huddle: done with ED staff (for boarding clients): Yes No Date/ Time Referral for Case management: Has phone call for introduction been made Yes No Referral in EMR: Done and sent? Yes NO Clinicians Name and title and Signature: Ana Stroud, [facility] ES Make sure that you are photocopying and submitting this to [facility] records dept.to be scanned into chart
[2018-03-23 23:55] VITALS: BP 140/90; PULSE 101; RESP 18; TEMP 36.7; O2SAT 98
[2018-03-24 07:05] LABS: Abs Immature Grans 0.07 k/cumm (0.0-0.09); Absolute Basophil Count 0.02 k/cumm (0.0-0.2); Absolute Eosinophil Count 0.18 k/cumm (0.0-0.7); Absolute Lymphocyte Count 2.21 k/cumm (1.2-3.4); Absolute Monocyte Count 0.69 k/cumm (0.11-0.7); Absolute Neutrophil Count 6.45 k/cumm (1.2-6.7); Basophils % 0.2; Eosinophils % 1.9; HCT 45.2 % (40.0-50.0); HGB 15.4 g/dL (13.5-17.5); Immature Grans % 0.7; Mean Corp. HGB Concentration 34.1 g/dL (32.0-36.0); Mean Corpuscular Hemoglobin 31.4 pg (27.0-33.0); Mean Corpuscular Volume 92.2 fL (80-95); Mean Platelet Volume 12.5 fL (8.0-11.0); Monocytes % 7.2; Platelet Count 184 x1000/uL (130-400); RBC Distribution Width 13.1 % (11.8-14.1); White Blood Cell Count 9.62 k/cumm (4.4-10.8)
[2018-03-24 07:50] VITALS: BP 145/99; PULSE 115; TEMP 37.3; O2SAT 95
--- NOTE | 2018-03-24 08:09 | NUR.NOTE ---
Nursing Note: 729: pt very agitated this am. pt requesting certain people not be allowed near him this morning. RN and pt have a working relationship as RN has taken care of pt for multiple days. pt very loud but does quiet down when he feels he is being listened to and heard. pt sharing music with staff on his phone discussing alma edwards and my friends who are metal heads but they have re-done her songs, aren't they good. pt does become loud again when CC requests pt turn the volume of music down; CC and pt had multiple interactions yesterday and pt doesn't want her near me!, keep the bitch away, I'm here minding my own business and she blows over here and tells me what to do, NO ONE tells me what to do, you apparently don't know who I am!. RN able to redirect pt this am talking about other music people. RN brings pt a fresh beverage which pt thanks RN for. continue to monitor.
[2018-03-24] MEDS: Enoxaparin 120 MG/0.8 ML SYR SC ×2 (08:43→21:10)
--- NOTE | 2018-03-24 09:39 | ERMH_ITS ---
Presenting issue: *How did they arrive here at ER and why did they come: Patient initially arrived at the Emergency Department via Police for disturbances in mental health. Precipitating Factors: *Assessment of Safety SI / HI- (Address delusions if pertaining to the SI/ HI) Rey senior grant writer was unable to accurately and thoroughly assess terry patient as he refused to talk with this senior grant writer. The patient stated that he is safe, that everyone else is safe, and that this senior grant writer needs to leave now. In order to not escalate this patient this senior grant writer left to talk with nursing staff regarding the patients recent behaviors. Disposition: *Behavior: The patient was sitting on the hospital bed talking with his sitter *Eye Contact: Patient made direct eye contact *Mood: Calm but could easily escalate *Affect: Liable *Appetite: Good *Sleep (trouble falling/staying asleep): According to hospital staff the patient did not sleep more than 30 min last night Plan: (please elaborate and include that physician is consulted with plan and/ or placement): The patient will remain at the hospital on an involuntary status until a bed becomes available at a mental health treatment facility. Provisional Diagnosis:(only if required by physician): [] AXIS 5 Case Handover: Done with ED nurse (name): [] Date & Time [] Huddle: done with ED staff (for boarding clients): [] Yes [] No Date /Time [] Referral for Case management: Has phone call for introduction been made [] Yes [] No Referral in EMR: Done and sent? [] Yes [] NO Clinicians Name and title and Signature: [Carolyn Noyola - [facility] Emergency Clinician] Make sure that you are photocopying and submitting this to [facility] records dept.to be scanned into chart
--- NOTE | 2018-03-24 10:34 | PDOC.CMPRO ---
Date of Service: 03/24/18 Time of Service: 10:34 Care Management Progress Note Care Plan Rodney Hernandez 03/23/18 Involuntary Admission (EE) Rodney had an outburst this morning as he was asked to turn down his music as it was 0600 and other patients were sleeping. Sheriff Braeden, came to Rodney's room at this time and Rodney was appropriate with Braeden, though continued to speak loudly. One of the local blanket binder brought in a pair of headphones for Rodney to use as his are broken. HARLEEN Connors, has provided Rodney with these headphones so that he can listen to his music. Carolyn [facility], met with Rodney this morning and he stated that he did not want to talk with her. Carolyn states that at this time there are no beds available. Carolyn has spoken with Nargis Beavers [facility], whom is assisting with placement at a psychiatric facility. Foot Caster coverage until Wednesday03/30/18 @ 0700 1. Suicide Precautions 2. Patient can remain in personal clothing 3. No other Personal belongings in room 4. Please follow the policy on the admitted behavioral health patient 5. Patient may have cell phone in room, and phone stenciling machine tender when needed. Patient may have earphones. 6. No visitors at this time 7. Finger foods only. No utensils. 8. Comfort bath system for hygiene 9. Supervised bathroom privileges 10. May have TV and remote privileges 11. One on one supervision by a ALMOND HULLER, LIAISON ENGINEER, enhanced environmental operator. 12. May have phone privileges. Phone is cordless and located in greenhouse staff break room. Foot Caster to provide patient with the phone and remove when he is finished. [facility] will be coordinating placement at inpatient facility. Patient is currently involuntarily at [facility] and seeking inpatient admission when a bed becomes available. [facility] Frontline Sales Development Specialist will continue seeking placement. Please contact the Conventional Mortgage Underwriter Ed Transporter ([phone]) and [facility] Sales Development Specialist ([phone]) for any needed changes in the Safety Plan. Safety plan has been provided to interdepartmental care team including Clinical Coordinator, Nursing Research And Insights Executive.
--- NOTE | 2018-03-24 11:13 | CMPROGNOTE_ITS ---
Date of Service: 03/24/18 Time of Service: 10:34 Care Management Progress Note Care Plan Rodney Hernandez 03/23/18 Involuntary Admission (EE) Rodney had an outburst this morning as he was asked to turn down his music as it was 0600 and other patients were sleeping. Sheriff Braeden, came to Rodney's room at this time and Rodney was appropriate with Braeden, though continued to speak loudly. One of the local mat packer brought in a pair of headphones for Rodney to use as his are broken. HARLEEN Connors, has provided Rodney with these headphones so that he can listen to his music. Caorlyn [facility], met with Rodney this morning and he stated that he did not want to talk with her. Carolyn states that at this time there are no beds available. Carolyn has spoken with Nargis Beavers [facility], whom is assisting with placement at a psychiatric facility. Search Engineer coverage until Wednesday03/30/18 @ 0700 1. Suicide Precautions 2. Patient can remain in personal clothing 3. No other Personal belongings in room 4. Please follow the policy on the admitted behavioral health patient 5. Patient may have cell phone in room, and phone bulb filler when needed. Patient may have earphones. 6. No visitors at this time 7. Finger foods only. No utensils. 8. Comfort bath system for hygiene 9. Supervised bathroom privileges 10. May have TV and remote privileges 11. One on one supervision by a GARMENT STEAMER, SANDWICH ARTIST, gas flow regulator. 12. May have phone privileges. Phone is cordless and located in property staff accountant break room. Search Engineer to provide patient with the phone and remove when he is finished. [facility] will be coordinating placement at inpatient facility. Patient is currently involuntarily at [facility] and seeking inpatient admission when a bed becomes available. [facility] Frontline Network Intern will continue seeking placement. Please contact the Electrical Technician Instructor Bible Teacher ([phone]) and [facility] Network Intern ([phone]) for any needed changes in the Safety Plan. Safety plan has been provided to interdepartmental care team including Clinical Coordinator, Nursing Cold Mill Operator.
--- NOTE | 2018-03-24 11:19 | NUR.NOTE ---
Nursing Note: 1045: pt has an outburst r/t the CC looking at me. pt ramped up and become verbally abusive to staff. RN, and security go to room to assess situation. pt pacing in room, yelling and swearing. pt approaches door but turns back when he gets close to security. pt verbally but not physically aggressive to staff. pt very upset as he feels that CC has targeted him and continues to stare and glare at him. pt continues to ramp up stating just cuff me and take me away because if that bitch looks at me one more time, i can't tell you what i'll do, just you watch!. pt approaches corner of room and punches the radiator cover with his right hand with a very loud metal crunching sound. pt allows RN to assess his knuckles, pt states it's just a boxer break, you can't do anything to make it better, it just has to heal. pt has visible redness and irritation to his fourth and fifth knuckle. pt able to move hand but states that it does hurt like hell. RN offers to have hand xrayed and pt declines. Braeden and [place] in room with RN at this time. pt continues to mckayla and beth stating you don't know who you are messing with, I can have you erased, i'm so smart, i can do things like that RN distracts pt by discussing headphones that pt recently recieved. pt discusses them. pt does make statements about batch freezer operator and going to [facility] from this facility and will go calmly with you (referring to Braeden) when you put the cuffs on pt states i'm going to just walk away from this place, I'm going to walk out and there is nothing you are going to be able to do about it. RN gets pt a beverage and pt's tone of voice begins to decrease. RN and Braeden express to pt that outbursts that are violent do not look good for the pt. pt states you will not tell anyone what just happened in here, you understand that don't you, all I did was bang my leg on the radiator, I didn't punch anything, you saw absolutely nothing...are we all in agreement?. continue to monitor.
[2018-03-24] MEDS: Docusate Sodium 100 MG CAP PO ×2 (11:46→21:10)
--- NOTE | 2018-03-24 14:42 | NUR.NOTE ---
Nursing Note: 1440: pt has been listening to music with head set on for most of the afternoon following lunch. pt has not had an outburst since shortly after noon. pt did have multiple complaints surrounding lunch and what was brought for him to eat. pt refused ham sandwich, the food was too cold, drink not cold enough. RN gets pt an egg salad sandwich and heats up cheeseburger. pt is frustrated with patient safety observer sitting outside of another room and begins to holler about him and what he doesn't know, I know how to fly a helicopter,what the hell does he know anyways? i went to high school and my school is so much better than any college any of you have gone to, i'm super smart and you are not, what the f do you all know anyways? pt continues to be very grandiose in his statements; being part of a mob family, having celebrities and movie stars who befriend on FB, having friends who own tattoo magazines and are famous celebrities, being able to self dozier his face and do his own tattoos all over his body who can do that, NO ONE, I am the only one who can, no one else. pt is redirectable at times when he feels he is being heard in his statements. pt has shown verbal aggression t/o the shift but has been able to control his physical behaviors with one exception when he hit the radiator that I will deny and you will not tell anyone about! earlier in the shift. continue to monitor.
[2018-03-24 16:23] VITALS: BP 140/78; PULSE 86; RESP 19; TEMP 36.7; O2SAT 98
--- NOTE | 2018-03-24 17:02 | PDOC.PROG ---
Date of Service: 03/24/18 Time of Service: 17:02 Assessment/Plan - Assessment/Plan (1) Bipolar disorder with psychotic features Plan: He continues to refuse to take medications. Mental health is working on getting him placed at a psychiatric facility for appropriate psychiatric care. Will continue to hold him on EE status with a safety plan in place and a 1:1 patient observer until he is accepted at a psychiatric facility. (2) Constipation Plan: He continues to take his colace as prescribed. Continue current regimen. History of Present Illness - History of Present Illness Chief Complaint: Acute psychosis, bipolar with brendan. History of Present Illness: Rodney is a 37-year-old male with a past medical history significant for bipolar disorder who [facility] EE status awaiting a bed at an inpatient psychiatric facility. He continues to refuse all medications except Colace and Lovenox. He states he does not need Depakote as he does not have mental illness. His speech is rambling. He did escalate earlier today, when he became very loud in the doorway of his room, he was threatening, he punched the radiator in his room. He required redirection by nursing and the safety fire boss. He continues to have grandiose thoughts, he maintains that he is a very famous person. He makes demands about how he expects to be treated in the hospital. He is medically stable. Review of Systems - Review of Systems Other: He is unable to answer direct questions related to review of systems, his speech is rambling with grandiose thoughts. - Medications/Allergies Allergies/Adverse Reactions: Allergies Allergy/AdvReac Type Severity Reaction Status Date / Time No Known Allergies Allergy Unverified 03/16/18 18:44 Medications: Current Medications Acetaminophen (Tylenol) 0 mg PO Q4H PRN PRN Al Hydrox/Mg Hydrox/Simethicone (Mylanta Liquid) 30 ml PO Q2H PRN PRN Dimethicone/Zinc Oxide (Nhan Protect Cream) 0 gm TP PRN PRN Divalproex Sodium (Depakote) 250 mg PO TID [facility] Last Admin: 03/24/18 14:34 Dose: Not Given Docusate Sodium (Colace) 100 mg PO TID [facility] Last Admin: 03/24/18 15:22 Dose: Not Given Enoxaparin Sodium (Lovenox) 120 mg SC BID [facility] Last Admin: 03/24/18 08:43 Dose: 120 mg Haloperidol (Haldol) 5 mg PO TID PRN PRN Reason: Severe agitation Haloperidol Lactate (Haldol Injection) 5 mg IM/IV Q6H PRN PRN Reason: Severe agitation IV Miscellaneous Supplies () 1 each IV DIRECTED [facility] Lorazepam (Ativan) 1 mg PO TID PRN PRN PRN Reason: Agitation Lorazepam (Ativan Injection) 1 mg IM Q3H PRN PRN PRN Reason: Agitation Magnesium Hydroxide (Milk Of Magnesia) 30 ml PO DAILY PRN PRN Polyethylene Glycol (Miralax) 17 gm PO DAILY PRN PRN PRN Reason: Constipation Quetiapine Fumarate (Seroquel) 100 mg PO HS [facility] Last Admin: 03/23/18 20:17 Dose: Not Given Sodium Chloride (Saline Flush 10 Ml Syringe) 0 ml IVP PRN PRN Objective - Exam Vitals and I&O: Vital Signs Temp 36.7 C 03/24/18 16:23 Pulse 86 03/24/18 16:23 Resp 19 03/24/18 16:23 BP 140/78 03/24/18 16:23 Pulse Ox 98 03/24/18 16:23 Intake & Output 03/23/18 03/24/18 03/24/18 23:59 11:59 23:59 Intake Total 480 250 Balance 480 250 Intake: Oral 480 250 Other: Urine Color Yellow Yellow Urine Appearance Clear Clear Urine Odor Normal Normal Voiding Methods Toilet Toilet General: Alert, No acute distress. denies: Oriented x3 HEENT: Atraumatic Neck: Supple Lungs: Other (respirations even and unlabored.) Neurological: Normal gait, Normal speech (Speech is clear but rambline. ) Psych/Mental Status: denies: Mental status NL - Results Results: Laboratory Results WBC 9.62 k/cumm (4.4-10.8) 03/24/18 06:10 RBC 4.90 m/cumm (4.50-6.00) 03/24/18 06:10 Hgb 15.4 g/dL (13.5-17.5) 03/24/18 06:10 Hct 45.2 % (40.0-50.0) 03/24/18 06:10 MCV 92.2 fL (80-95) 03/24/18 06:10 MCH 31.4 pg (27.0-33.0) 03/24/18 06:10 MCHC 34.1 g/dL (32.0-36.0) 03/24/18 06:10 RDW 13.1 % (11.8-14.1) 03/24/18 06:10 Plt Count 184 x1000/uL (130-400) 03/24/18 06:10 MPV 12.5 fL (8.0-11.0) H 03/24/18 06:10 Immature Gran % 0.7 03/24/18 06:10 Neutrophils % 67.0 03/24/18 06:10 Lymphocytes % 23.0 03/24/18 06:10 Monocytes % 7.2 03/24/18 06:10 Eosinophils % 1.9 03/24/18 06:10 Basophils % 0.2 03/24/18 06:10 Absolute Neutrophils 6.45 k/cumm (1.2-6.7) 03/24/18 06:10 Absolute Lymphocytes 2.21 k/cumm (1.2-3.4) 03/24/18 06:10 Absolute Monocytes 0.69 k/cumm (0.11-0.7) 03/24/18 06:10 Absolute Eosinophils 0.18 k/cumm (0.0-0.7) 03/24/18 06:10 Absolute Basophils 0.02 k/cumm (0.0-0.2) 03/24/18 06:10 PT 10.1 sec (9.3-10.8) 03/16/18 20:19 INR 1.0 (1.0-3.5) 03/16/18 20:19 APTT 24.1 sec (21.0-31.4) 03/16/18 20:19 Sodium 139 mmol/L (136-145) 03/16/18 20:19 Potassium 3.5 mmol/L (3.5-5.1) 03/16/18 20:19 Chloride 103 mmol/L (98-107) 03/16/18 20:19 Carbon Dioxide 24.3 mmol/L (21.0-32.0) 03/16/18 20:19 Anion Gap 11.7 mmol/L (3-11) H 03/16/18 20:19 BUN 15 mg/dL (7-18) 03/16/18 20:19 Creatinine 1.07 mg/dL (0.70-1.30) 03/16/18 20:19 Estimated GFR/1.73 m2 >= 60.00 (mL/min/1.73m2) 03/16/18 20:19 Glucose 105 mg/dL (70-100) H 03/16/18 20:19 Calcium 9.3 mg/dL (8.5-10.1) 03/16/18 20:19 Urine Color Sarah (Yellow) 03/17/18 16:15 Urine Clarity Clear 03/17/18 16:15 Urine pH 6.5 (5-8) 03/17/18 16:15 Ur Specific [place] 1.025 (1.005-1.025) 03/17/18 16:15 Urine Protein Negative mg/dL (Negative) 03/17/18 16:15 Urine Ketones 40 mg/dL (Negative) H 03/17/18 16:15 Urine Blood Negative (Negative) 03/17/18 16:15 Urine Nitrite Negative (Negative) 03/17/18 16:15 Urine Bilirubin Small (Negative) H 03/17/18 16:15 Urine Urobilinogen 4.0 EU/dL (Up TO 0.2) H 03/17/18 16:15 Ur Leukocyte Esterase Negative (Negative) 03/17/18 16:15 Urine Glucose Negative mg/dL (Negative) 03/17/18 16:15 Urine Opiates Screen Negative (Negative) 03/17/18 16:15 Urine Methadone Screen Negative (Negative) 03/17/18 16:15 Ur Barbiturates Screen Negative (Negative) 03/17/18 16:15 Ur Tricyclics Screen Negative (Negative) 03/17/18 16:15 Ur Amphetamines Screen Negative (Negative) 03/17/18 16:15 U Benzodiazepines Scrn Negative (Negative) 03/17/18 16:15 Urine Cocaine Screen Negative (Negative) 03/17/18 16:15 Ur THC Screen Positive (Negative) 03/17/18 16:15 Ethyl Alcohol < 3.0 mg/dL (<3) 03/16/18 20:19
--- NOTE | 2018-03-24 17:08 | PDOC.PROG_ITS ---
Date of Service: 03/24/18 Time of Service: 17:02 Assessment/Plan - Assessment/Plan (1) Bipolar disorder with psychotic features Plan: He continues to refuse to take medications. Mental health is working on getting him placed at a psychiatric facility for appropriate psychiatric care. Will continue to hold him on EE status with a safety plan in place and a 1:1 patient observer until he is accepted at a psychiatric facility. (2) Constipation Plan: He continues to take his colace as prescribed. Continue current regimen. History of Present Illness - History of Present Illness Chief Complaint: Acute psychosis, bipolar with brendan. History of Present Illness: Rodney is a 37-year-old male with a past medical history significant for bipolar disorder who is [facility] on EE status awaiting a bed at an inpatient psychiatric facility. He continues to refuse all medications except Colace and Lovenox. He states he does not need Depakote as he does not have mental illness. His speech is rambling. He did escalate earlier today, when he became very loud in the doorway of his room, he was threatening, he punched the radiator in his room. He required redirection by nursing and the sheet hanger. He continues to have grandiose thoughts, he maintains that he is a very famous person. He makes demands about how he expects to be treated in the hospital. He is medically stable. Review of Systems - Review of Systems Other: He is unable to answer direct questions related to review of systems, his speech is rambling with grandiose thoughts. - Medications/Allergies Allergies/Adverse Reactions: Allergies Allergy/AdvReac Type Severity Reaction Status Date / Time No Known Allergies Allergy Unverified 03/16/18 18:44 Medications: Current Medications Acetaminophen (Tylenol) 0 mg PO Q4H PRN PRN Al Hydrox/Mg Hydrox/Simethicone (Mylanta Liquid) 30 ml PO Q2H PRN PRN Dimethicone/Zinc Oxide (Nhan Protect Cream) 0 gm TP PRN PRN Divalproex Sodium (Depakote) 250 mg PO TID [facility] Last Admin: 03/24/18 14:34 Dose: Not Given Docusate Sodium (Colace) 100 mg PO TID [facility] Last Admin: 03/24/18 15:22 Dose: Not Given Enoxaparin Sodium (Lovenox) 120 mg SC BID [facility] Last Admin: 03/24/18 08:43 Dose: 120 mg Haloperidol (Haldol) 5 mg PO TID PRN PRN Reason: Severe agitation Haloperidol Lactate (Haldol Injection) 5 mg IM/IV Q6H PRN PRN Reason: Severe agitation IV Miscellaneous Supplies () 1 each IV DIRECTED [facility] Lorazepam (Ativan) 1 mg PO TID PRN PRN PRN Reason: Agitation Lorazepam (Ativan Injection) 1 mg IM Q3H PRN PRN PRN Reason: Agitation Magnesium Hydroxide (Milk Of Magnesia) 30 ml PO DAILY PRN PRN Polyethylene Glycol (Miralax) 17 gm PO DAILY PRN PRN PRN Reason: Constipation Quetiapine Fumarate (Seroquel) 100 mg PO HS [facility] Last Admin: 03/23/18 20:17 Dose: Not Given Sodium Chloride (Saline Flush 10 Ml Syringe) 0 ml IVP PRN PRN Objective - Exam Vitals and I&O: Vital Signs Temp 36.7 C 03/24/18 16:23 Pulse 86 03/24/18 16:23 Resp 19 03/24/18 16:23 BP 140/78 03/24/18 16:23 Pulse Ox 98 03/24/18 16:23 Intake & Output 03/23/18 03/24/18 03/24/18 23:59 11:59 23:59 Intake Total 480 250 Balance 480 250 Intake: Oral 480 250 Other: Urine Color Yellow Yellow Urine Appearance Clear Clear Urine Odor Normal Normal Voiding Methods Toilet Toilet General: Alert, No acute distress. denies: Oriented x3 HEENT: Atraumatic Neck: Supple Lungs: Other (respirations even and unlabored.) Neurological: Normal gait, Normal speech (Speech is clear but rambline. ) Psych/Mental Status: denies: Mental status NL - Results Results: Laboratory Results WBC 9.62 k/cumm (4.4-10.8) 03/24/18 06:10 RBC 4.90 m/cumm (4.50-6.00) 03/24/18 06:10 Hgb 15.4 g/dL (13.5-17.5) 03/24/18 06:10 Hct 45.2 % (40.0-50.0) 03/24/18 06:10 MCV 92.2 fL (80-95) 03/24/18 06:10 MCH 31.4 pg (27.0-33.0) 03/24/18 06:10 MCHC 34.1 g/dL (32.0-36.0) 03/24/18 06:10 RDW 13.1 % (11.8-14.1) 03/24/18 06:10 Plt Count 184 x1000/uL (130-400) 03/24/18 06:10 MPV 12.5 fL (8.0-11.0) H 03/24/18 06:10 Immature Gran % 0.7 03/24/18 06:10 Neutrophils % 67.0 03/24/18 06:10 Lymphocytes % 23.0 03/24/18 06:10 Monocytes % 7.2 03/24/18 06:10 Eosinophils % 1.9 03/24/18 06:10 Basophils % 0.2 03/24/18 06:10 Absolute Neutrophils 6.45 k/cumm (1.2-6.7) 03/24/18 06:10 Absolute Lymphocytes 2.21 k/cumm (1.2-3.4) 03/24/18 06:10 Absolute Monocytes 0.69 k/cumm (0.11-0.7) 03/24/18 06:10 Absolute Eosinophils 0.18 k/cumm (0.0-0.7) 03/24/18 06:10 Absolute Basophils 0.02 k/cumm (0.0-0.2) 03/24/18 06:10 PT 10.1 sec (9.3-10.8) 03/16/18 20:19 INR 1.0 (1.0-3.5) 03/16/18 20:19 APTT 24.1 sec (21.0-31.4) 03/16/18 20:19 Sodium 139 mmol/L (136-145) 03/16/18 20:19 Potassium 3.5 mmol/L (3.5-5.1) 03/16/18 20:19 Chloride 103 mmol/L (98-107) 03/16/18 20:19 Carbon Dioxide 24.3 mmol/L (21.0-32.0) 03/16/18 20:19 Anion Gap 11.7 mmol/L (3-11) H 03/16/18 20:19 BUN 15 mg/dL (7-18) 03/16/18 20:19 Creatinine 1.07 mg/dL (0.70-1.30) 03/16/18 20:19 Estimated GFR/1.73 m2 >= 60.00 (mL/min/1.73m2) 03/16/18 20:19 Glucose 105 mg/dL (70-100) H 03/16/18 20:19 Calcium 9.3 mg/dL (8.5-10.1) 03/16/18 20:19 Urine Color Sarah (Yellow) 03/17/18 16:15 Urine Clarity Clear 03/17/18 16:15 Urine pH 6.5 (5-8) 03/17/18 16:15 Ur Specific [place] 1.025 (1.005-1.025) 03/17/18 16:15 Urine Protein Negative mg/dL (Negative) 03/17/18 16:15 Urine Ketones 40 mg/dL (Negative) H 03/17/18 16:15 Urine Blood Negative (Negative) 03/17/18 16:15 Urine Nitrite Negative (Negative) 03/17/18 16:15 Urine Bilirubin Small (Negative) H 03/17/18 16:15 Urine Urobilinogen 4.0 EU/dL (Up TO 0.2) H 03/17/18 16:15 Ur Leukocyte Esterase Negative (Negative) 03/17/18 16:15 Urine Glucose Negative mg/dL (Negative) 03/17/18 16:15 Urine Opiates Screen Negative (Negative) 03/17/18 16:15 Urine Methadone Screen Negative (Negative) 03/17/18 16:15 Ur Barbiturates Screen Negative (Negative) 03/17/18 16:15 Ur Tricyclics Screen Negative (Negative) 03/17/18 16:15 Ur Amphetamines Screen Negative (Negative) 03/17/18 16:15 U Benzodiazepines Scrn Negative (Negative) 03/17/18 16:15 Urine Cocaine Screen Negative (Negative) 03/17/18 16:15 Ur THC Screen Positive (Negative) 03/17/18 16:15 Ethyl Alcohol < 3.0 mg/dL (<3) 03/16/18 20:19
--- NOTE | 2018-03-24 20:52 | PDOC.MHCN ---
Date of Service: 03/24/18 Time of Service: 20:52 Presenting Issue: *How did they arrive here at ER and why did they come: Patient remains at [facility] on involuntary status, awaiting a psych bed. Precipitating Factors: *Assessment of Safety SI/HI (address delusions if pertaining to the SI/HI) Patient denies current SI/HI but states he can be a dangerous man when messed with. He continues to experience delusions. His speech is pressured and he rambles on about being a mob member, a famous musician, a model, etc. He talks about his family owning this hospital and the cameras in the hospital and states that his family is watching everything that goes on here. He says he is not going to take any medications because the meds are going to kill him. He also informs me that he has been giving metal spoons back to hospital staff as he knows how to make a weapon out of a spoon and does not want to injure anyone. Disposition: *Behavior: Cooperative. *Eye Contact: Good. *Mood: Calm. *Affect: Congruent to mood. *Appetite: Reports he is not eating well because he hates the food here. *Sleep (trouble falling/staying asleep): Reported as poor but patient states he only needs a few hours of sleep per night. Plan: Plan is for patient to remain at [facility] on involuntary status until a psych placement can be secured for him. Ben Jacobeat is expecting discharges tomorrow and will review the referral at that time.
--- NOTE | 2018-03-24 20:58 | PDOC.MHCN_ITS ---
Date of Service: 03/24/18 Time of Service: 20:52 Presenting Issue: *How did they arrive here at ER and why did they come: Patient remains at [facility] on involuntary status, awaiting a psych bed. Precipitating Factors: *Assessment of Safety SI/HI (address delusions if pertaining to the SI/HI) Patient denies current SI/HI but states he can be a dangerous man when messed with. He continues to experience delusions. His speech is pressured and he rambles on about being a mob member, a famous musician, a model, etc. He talks about his family owning this hospital and the cameras in the hospital and states that his family is watching everything that goes on here. He says he is not going to take any medications because the meds are going to kill him. He also informs me that he has been giving metal spoons back to hospital staff as he knows how to make a weapon out of a spoon and does not want to injure anyone. Disposition: *Behavior: Cooperative. *Eye Contact: Good. *Mood: Calm. *Affect: Congruent to mood. *Appetite: Reports he is not eating well because he hates the food here. *Sleep (trouble falling/staying asleep): Reported as poor but patient states he only needs a few hours of sleep per night. Plan: Plan is for patient to remain at [facility] on involuntary status until a psych placement can be secured for him. Ben Jacobeat is expecting discharges tomorrow and will review the referral at that time.
[2018-03-25 00:24] VITALS: BP 130/83; PULSE 85; RESP 18; TEMP 36.7; O2SAT 96
[2018-03-25 08:30] VITALS: BP 158/97; PULSE 106; RESP 18; TEMP 36.8; O2SAT 100
[2018-03-25] MEDS: Enoxaparin 120 MG/0.8 ML SYR SC ×2 (09:03→20:02)
[2018-03-25] MEDS: Docusate Sodium 100 MG CAP PO ×3 (09:03→20:03)
--- NOTE | 2018-03-25 09:20 | NUR.NOTE ---
Nursing Note: 0915: pt exhibiting grandiose behaviors this am. pt very animated in his conversation about how he is superior to everyone in the world. pt states his IQ in second grade was 145 do you know that, no you don't know that. pt discussing how he is adopted and his family is the [place], you don't know about that do you, NO you don't. pt concerned with card that is supposed to arrive today from [facility], you know, not everyone can get mail here from [facility], my mother sent it here and if it doesn't come today, you are all going to lose your jobs because SOMEONE didn't sign for it. pt states you don't want me to have to call the post office! it won't be good for you!. pt believes he has gotten multiple staff members fired from this facility because of how he has been treated; they have all disappeared haven't they?, NO ONE messes with me!. pt has been able to control his tone/volume today although his language is vulgar at times. pt interacting with patient safety observer and security t/o the morning. continue to monitor.
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
--- NOTE | 2018-03-25 11:24 | PDOC.CMPRO ---
Date of Service: 03/25/18 Time of Service: 11:24 Care Management Progress Note Care Plan Rodney Hernandez 03/25/18 Involuntary Admission (EE) Rodney slept more overnight last night. [facility] has assisted Rodney with obtaining minutes for his phone so that he can utilize this without wifi. Earlier this morning Rodney was appropriate though later this morning he started escalating as he feels as though some of his belongings are missing. KOKI Segundo, brought Rodney his belongings which he went through to his satisfaction. Rodney continues to state that he is missing a shirt at this time. BELTRAN Leon, attempted to meet with Rodney which escalated him. Rodney was also yelling stating Call my mom and talk to her about it. This continuity writer offered assistance to call Rodney's mom and this escalated Rodney as well with him stating I'm smarter than everyone, You're stupid. Don't you know who I am? Rodney continues to report that his real name is Rodney Soto and that he is part of the [employer]. Adrienne held this morning to discuss Rodney showering. Due to Rodney's escalation and stating that he will walk out Rodney will continue to use the comfort bath system at this time. Rodney is now stating that he does not want a shower any longer and just wants to use the wipes. met with Sheriff Braeden, as well as BELTRAN Leon, to discuss management of Rodney, as he escalates frequently. Braeden feels as though it would be helpful for the director of hospitality to go into Rodney's room when he is escalated and to close the door. Rodney has a good rapport with the centura technical lead senior developer at this time and Braeden feels as though this would be beneficial. Safety Plan has been updated accordingly. Per BELTRAN Leon, SHARLENE will review Rodney on Wednesday and Ben will review on Wednesday. Financial Sales Consultant coverage until Wednesday03/30/18 @ 0700 1. Suicide Precautions 2. Patient can remain in personal clothing 3. No other Personal belongings in room 4. Please follow the policy on the admitted behavioral health patient 5. Patient may have cell phone in room, and phone supercharger mechanic when needed. Patient may have earphones. 6. No visitors at this time 7. Finger foods only. No utensils. 8. Comfort bath system for hygiene 9. Supervised bathroom privileges 10. May have TV and remote privileges 11. One on one supervision by a EARTH SCIENCE TECHNICIAN, COMMERCIAL ESCROW ASSISTANT, apron operator. 12. May have phone privileges. Phone is cordless and located in staff development coordinator break room. Financial Sales Consultant to provide patient with the phone and remove when he is finished. [facility] will be coordinating placement at inpatient facility. Patient is currently involuntarily at [facility] and seeking inpatient admission when a bed becomes available. [facility] Frontline Brand Advisor will continue seeking placement. Please contact the Passenger Service Representative Tightening Machine Operator ([phone]) and [facility] Brand Advisor ([phone]) for any needed changes in the Safety Plan. Safety plan has been provided to interdepartmental care team including Clinical Coordinator, Nursing Elevator Operator.
--- NOTE | 2018-03-25 11:59 | CMPROGNOTE_ITS ---
Date of Service: 03/25/18 Time of Service: 11:24 Care Management Progress Note Care Plan Rodney Hernandez 03/25/18 Involuntary Admission (EE) Rodney slept more overnight last night. [facility] has assisted Rodney with obtaining minutes for his phone so that he can utilize this without wifi. Earlier this morning Rodney was appropriate though later this morning he started escalating as he feels as though some of his belongings are missing. KOKI Segundo, brought Rodney his belongings which he went through to his satisfaction. Rodney continues to state that he is missing a shirt at this time. BELTRAN Leon, attempted to meet with Rodney which escalated him. Rodney was also yelling stating Call my mom and talk to her about it. This typewriter operator automatic offered assistance to call Rodney's mom and this escalated Rodney as well with him stating I'm smarter than everyone, You're stupid. Don't you know who I am? Rodney continues to report that his real name is Rodney Soto and that he is part of the [employer]. Adrienne held this morning to discuss Rodney showering. Due to Rodney's escalation and stating that he will walk out Rodney will continue to use the comfort bath system at this time. Rodney is now stating that he does not want a shower any longer and just wants to use the wipes. met with Sheriff Braeden, as well as BELTRAN Leon, to discuss management of Rodney, as he escalates frequently. Braeden feels as though it would be helpful for the micrographics services supervisor to go into Rodney's room when he is escalated and to close the door. Rodney has a good rapport with the skinner pelts at this time and Braeden feels as though this would be beneficial. Safety Plan has been updated accordingly. Per BELTRAN Leon, SHARLENE will review Rodney on Wednesday and Ben will review on Wednesday. Boom Master coverage until Wednesday03/30/18 @ 0700 1. Suicide Precautions 2. Patient can remain in personal clothing 3. No other Personal belongings in room 4. Please follow the policy on the admitted behavioral health patient 5. Patient may have cell phone in room, and phone barrel bung remover and dumper when needed. Patient may have earphones. 6. No visitors at this time 7. Finger foods only. No utensils. 8. Comfort bath system for hygiene 9. Supervised bathroom privileges 10. May have TV and remote privileges 11. One on one supervision by a AGRICULTURAL SYSTEMS SPECIALIST, HOME HEALTH ASSISTANT, horseradish maker. 12. May have phone privileges. Phone is cordless and located in staff air defense officer break room. Boom Master to provide patient with the phone and remove when he is finished. [facility] will be coordinating placement at inpatient facility. Patient is currently involuntarily at [facility] and seeking inpatient admission when a bed becomes available. [facility] Harmonica Maker will continue seeking placement. Please contact the Warehouse Logistics Coordinator Director Business Management ([phone]) and [facility] Harmonica Maker ([phone]) for any needed changes in the Safety Plan. Safety plan has been provided to interdepartmental care team including Clinical Coordinator, Nursing Restaurant Hospitality Manager.
--- NOTE | 2018-03-25 14:38 | NUR.NOTE ---
Nursing Note: 1330: at approximately this time, RN to pt's room for dose of scheduled colace. pt very hostile and yelling at security at this time. pt is upset about his post office box and the fact that he has been told by the post office that his mail was going to be returned to sender and that his box was being closed. pt very upset and is looking for someone to help him with that but pt is unable to express this effectively; pt demanding that security deal with it for me, NOW and if you don't do it, it's not going to be good. pt becomes aggressive in his speech and gets in personal space of security. security requests pt back away. pt puts hands behind his back and states arrest me, i'm not in your space, go ahead, i want you to arrest me!. RN attempts to speak with pt, pt puts hand up at RN and states I don't want to talk to you right now. pt continues to yell at security, requesting to be arrested, vulgar language and swearing, verbally aggressive with staff and security. pt states I'm leaving here right now, and who's going to stop me anyways, you? as he is looking at security. pt repeats he is leaving unless someone gets his mail and states are you going to call my mom and tell her what is going on? who should she call?, what are you going to tell her? she has no idea why I'm here and she's going to be pissed that you are holding me here! who's in charge of this place and who's keeping me here against my will?. pt is told that he is being held by the commissioner of mental health, pt states get him here, NOW!. RN again requests to speak with pt, pt again puts hand in air at RN and continues his conversation with the security delivery specialist. at this point RN exits room, leaving door slightly open for hallway security to see and hear. at approximatey 1355, RN exits another room to see pt in hallway with security behind him pushing him against the wall. pt attempts to get out of reach of security. RN goes to obtain prn haldol for pt as it appeared he might have to be restrained for his safety and that of staff. additional RN moves stretcher prepared with restraints toward room. pt sees stretcher and states you're going to need 3 shots of thorazine and I'm going to scream for 3 hours, I'm not doing that, you'd better have all you need when you want to put me down, you'll need a horse tranquilizer!. stretcher rolled away from sight of pt. pt continues to holler and yell at security and staff. security in room with pt. additional staff had been called to unit and were standing by in the wright. pt's amplitude of voice decreases and is speaking in a normal tone. RN brings pt drinks and he is calm. 1000: at this time, RN and security in CM office discussing plan of care for pt. advocating for shower for pt as his body odor has become offensive. RN receives call from it help desk associate stating pt is acting out. upon arrival to room, pt very agitated, screaming about his PRX card and how someone better have signed for that or it's not going to be a good thing you any of you!. pt received minutes on his phone today from [facility] administration. pt is shouting about not having a shower. security and RN explain to pt that we had been in a meeting advocating for him to have a shower today; fuck your shower!, where's my clothes! where are all the papers that were taken away from me! your stole my clothes, i came here with a bunch of new things and those f'ing press operator assistant took my papers out of my bag. RN brings clothes and pt's red duffel bag with pt's belongings in it. pt shuffles through everything, accusing staff of stealing from him. pt goes through papers and becomes more calm through the process of looking through his things. at this time, pt takes off his white t-shirt and begins to flex his muscles stating do you believe I work out, look at these arms, I work out, they used to call me tiny, i used to weigh 350lbs, look at me know! pt allows RN to remove all of his medications from his bag and sends to pharmacy; lovenox injections and risperdal were in pt's bag. pt keeps his insurance cards and a few business cards which pt wraps in rubber band and puts them in his pocket. pt's laundry gathered and placed in laundry bag. pt in agreement for RN to remove pt's personal papers in red duffel bag and place in secure location. security in room when pt in agreement and RN removes items. pt at this point throws his cell phone several times on the bed and on the floor. this interaction lasts approximately 45 minutes. pt notes that mental health, Carolyn and CM, Renuka are present outside of the room and begins to become agitated again about their presence. RN leaves area at this time as mental health and CM are speaking with pt. pt agitated again at lunch time but security is able to manage pt without assist from RN. pt seems to cycle in aggression just prior to meal time. pt is not diagnosed as a diabetic but RN is wondering if pt's BS might be related to pt's behavior. pt is eating and drinking well and appears to have the necessary caloric intake but with pt's constant movement and talking, pt appears to be burning calories.
--- NOTE | 2018-03-25 15:47 | PDOC.PROG ---
Date of Service: 03/25/18 Time of Service: 15:47 Assessment/Plan - Assessment/Plan (1) Bipolar disorder with psychotic features Plan: He continues to refuse to take medications, he maintains that he does not have any mental health illness. Mental health continues to work on placement at a psychiatric facility. Plan to continue to hold him on EE status with a safety plan in place with a 1:1 patient observer until he is accepted at a psychiatric facility. (2) Constipation Plan: He denies current problems with constipation as long as he takes colace. Continue current regimen. History of Present Illness - History of Present Illness Chief Complaint: Acute psychosis, bipolar with brendan History of Present Illness: Rodney is a 37-year-old male with a past medical history significant for hypertension, [place] with history of stent placement, PE, DVT, Hepatitis C and bipolar disorder who is currently admitted to the [facility] floor on EE status awaiting a bed at an inpatient psychiatric facility. He is refusing all medications except Colace and Lovenox. He is refusing depakote on the basis that he is not mentally ill. He rambles constantly with grandiose ideas. He insists that his real name is Rodney Brito, and that he is a very powerful and famous man. He is making demands, he does not feel that he should be held here. He complains of leg pain and cramps. He verbalizes concern related to lovenox side effects. He is asking to speak to the CAR LUBRICATOR of mental health. He denies risk for self harm or that he would harm others. He becomes loud and threatening at times, yelling and swearing at times. He escaped his room at one point today and had to be assisted back to his room by the mechanical product engineer. Nursing reported that he slept well and that he seems to escalate prior to meal times. - Past Medical History Cardiac: HTN, [place], Hyperlipidemia Pulmonary: Pulmonary embolus Heme/Onc: Other (DVT) Psych: Bipolar Infectious Disease: Other (Hepatitis C) - Past Surgical History Past Surgical History: Arthroscopy (knee), Other (mendez filter placement, angioplasty with stent placement) Review of Systems - Review of Systems Constitutional: denies: Fever, Chills, Weakness Cardiovascular: Edema (he points out some edema and erythema of the LLE.) Musculoskeletal: Leg Pain (He reports leg pain in his hips.) Other: He states, I have physical problems, not mental problems. He is unable to elaborate without rambling with disorganized thoughts. - Medications/Allergies Allergies/Adverse Reactions: Allergies Allergy/AdvReac Type Severity Reaction Status Date / Time No Known Allergies Allergy Unverified 03/16/18 18:44 Medications: Current Medications Acetaminophen (Tylenol) 0 mg PO Q4H PRN PRN Al Hydrox/Mg Hydrox/Simethicone (Mylanta Liquid) 30 ml PO Q2H PRN PRN Dimethicone/Zinc Oxide (Nhan Protect Cream) 0 gm TP PRN PRN Divalproex Sodium (Depakote) 250 mg PO TID [facility] Last Admin: 03/25/18 14:16 Dose: Not Given Docusate Sodium (Colace) 100 mg PO TID [facility] Last Admin: 03/25/18 14:16 Dose: 100 mg Enoxaparin Sodium (Lovenox) 120 mg SC BID [facility] Last Admin: 03/25/18 09:03 Dose: 120 mg Haloperidol (Haldol) 5 mg PO TID PRN PRN Reason: Severe agitation Haloperidol Lactate (Haldol Injection) 5 mg IM/IV Q6H PRN PRN Reason: Severe agitation IV Miscellaneous Supplies () 1 each IV DIRECTED [facility] Lorazepam (Ativan) 1 mg PO TID PRN PRN PRN Reason: Agitation Lorazepam (Ativan Injection) 1 mg IM Q3H PRN PRN PRN Reason: Agitation Magnesium Hydroxide (Milk Of Magnesia) 30 ml PO DAILY PRN PRN Polyethylene Glycol (Miralax) 17 gm PO DAILY PRN PRN PRN Reason: Constipation Quetiapine Fumarate (Seroquel) 100 mg PO [facility] Last Admin: 03/24/18 21:10 Dose: Not Given Sodium Chloride (Saline Flush 10 Ml Syringe) 0 ml IVP PRN PRN Objective - Exam Vitals and I&O: Vital Signs Temp 36.8 C 03/25/18 08:30 Pulse 106 H 03/25/18 08:30 Resp 18 03/25/18 08:30 BP 158/97 03/25/18 08:30 Pulse Ox 100 03/25/18 08:30 Intake & Output 03/24/18 03/25/18 03/25/18 23:59 11:59 23:59 Intake Total 480 480 300 Balance 480 480 300 Intake: Oral 480 480 300 Other: Urine Color Yellow Urine Appearance Clear Urine Odor Normal Comment VOID X 2 DURING NOC. Voiding Methods Toilet Toilet General: Alert. denies: Oriented x3 - Results Results: Laboratory Results WBC 9.62 k/cumm (4.4-10.8) 03/24/18 06:10 RBC 4.90 m/cumm (4.50-6.00) 03/24/18 06:10 Hgb 15.4 g/dL (13.5-17.5) 03/24/18 06:10 Hct 45.2 % (40.0-50.0) 03/24/18 06:10 MCV 92.2 fL (80-95) 03/24/18 06:10 MCH 31.4 pg (27.0-33.0) 03/24/18 06:10 MCHC 34.1 g/dL (32.0-36.0) 03/24/18 06:10 RDW 13.1 % (11.8-14.1) 03/24/18 06:10 Plt Count 184 x1000/uL (130-400) 03/24/18 06:10 MPV 12.5 fL (8.0-11.0) H 03/24/18 06:10 Immature Gran % 0.7 03/24/18 06:10 Neutrophils % 67.0 03/24/18 06:10 Lymphocytes % 23.0 03/24/18 06:10 Monocytes % 7.2 03/24/18 06:10 Eosinophils % 1.9 03/24/18 06:10 Basophils % 0.2 03/24/18 06:10 Absolute Neutrophils 6.45 k/cumm (1.2-6.7) 03/24/18 06:10 Absolute Lymphocytes 2.21 k/cumm (1.2-3.4) 03/24/18 06:10 Absolute Monocytes 0.69 k/cumm (0.11-0.7) 03/24/18 06:10 Absolute Eosinophils 0.18 k/cumm (0.0-0.7) 03/24/18 06:10 Absolute Basophils 0.02 k/cumm (0.0-0.2) 03/24/18 06:10 PT 10.1 sec (9.3-10.8) 03/16/18 20:19 INR 1.0 (1.0-3.5) 03/16/18 20:19 APTT 24.1 sec (21.0-31.4) 03/16/18 20:19 Sodium 139 mmol/L (136-145) 03/16/18 20:19 Potassium 3.5 mmol/L (3.5-5.1) 03/16/18 20:19 Chloride 103 mmol/L (98-107) 03/16/18 20:19 Carbon Dioxide 24.3 mmol/L (21.0-32.0) 03/16/18 20:19 Anion Gap 11.7 mmol/L (3-11) H 03/16/18 20:19 BUN 15 mg/dL (7-18) 03/16/18 20:19 Creatinine 1.07 mg/dL (0.70-1.30) 03/16/18 20:19 Estimated GFR/1.73 m2 >= 60.00 (mL/min/1.73m2) 03/16/18 20:19 Glucose 105 mg/dL (70-100) H 03/16/18 20:19 Calcium 9.3 mg/dL (8.5-10.1) 03/16/18 20:19 Urine Color Sarah (Yellow) 03/17/18 16:15 Urine Clarity Clear 03/17/18 16:15 Urine pH 6.5 (5-8) 03/17/18 16:15 Ur Specific Atkinson 1.025 (1.005-1.025) 03/17/18 16:15 Urine Protein Negative mg/dL (Negative) 03/17/18 16:15 Urine Ketones 40 mg/dL (Negative) H 03/17/18 16:15 Urine Blood Negative (Negative) 03/17/18 16:15 Urine Nitrite Negative (Negative) 03/17/18 16:15 Urine Bilirubin Small (Negative) H 03/17/18 16:15 Urine Urobilinogen 4.0 EU/dL (Up TO 0.2) H 03/17/18 16:15 Ur Leukocyte Esterase Negative (Negative) 03/17/18 16:15 Urine Glucose Negative mg/dL (Negative) 03/17/18 16:15 Urine Opiates Screen Negative (Negative) 03/17/18 16:15 Urine Methadone Screen Negative (Negative) 03/17/18 16:15 Ur Barbiturates Screen Negative (Negative) 03/17/18 16:15 Ur Tricyclics Screen Negative (Negative) 03/17/18 16:15 Ur Amphetamines Screen Negative (Negative) 03/17/18 16:15 U Benzodiazepines Scrn Negative (Negative) 03/17/18 16:15 Urine Cocaine Screen Negative (Negative) 03/17/18 16:15 Ur THC Screen Positive (Negative) 03/17/18 16:15 Ethyl Alcohol < 3.0 mg/dL (<3) 03/16/18 20:19
--- NOTE | 2018-03-25 15:50 | PDOC.PROG_ITS ---
Date of Service: 03/25/18 Time of Service: 15:47 Assessment/Plan - Assessment/Plan (1) Bipolar disorder with psychotic features Plan: He continues to refuse to take medications, he maintains that he does not have any mental health illness. Mental health continues to work on placement at a psychiatric facility. Plan to continue to hold him on EE status with a safety plan in place with a 1:1 patient observer until he is accepted at a psychiatric facility. (2) Constipation Plan: He denies current problems with constipation as long as he takes colace. Continue current regimen. History of Present Illness - History of Present Illness Chief Complaint: Acute psychosis, bipolar with brendan History of Present Illness: Rodney is a 37-year-old male with a past medical history significant for hypertension, [place] with history of stent placement, PE, DVT, Hepatitis C and bipolar disorder who is currently admitted to the [facility] floor on EE status awaiting a bed at an inpatient psychiatric facility. He is refusing all medications except Colace and Lovenox. He is refusing depakote on the basis that he is not mentally ill. He rambles constantly with grandiose ideas. He insists that his real name is Rodney Brito, and that he is a very powerful and famous man. He is making demands, he does not feel that he should be held here. He complains of leg pain and cramps. He verbalizes concern related to lovenox side effects. He is asking to speak to the SLAB POLISHER of mental health. He denies risk for self harm or that he would harm others. He becomes loud and threatening at times, yelling and swearing at times. He escaped his room at one point today and had to be assisted back to his room by the solar photovoltaic systems engineer. Nursing reported that he slept well and that he seems to escalate prior to meal times. - Past Medical History Cardiac: HTN, [place], Hyperlipidemia Pulmonary: Pulmonary embolus Heme/Onc: Other (DVT) Psych: Bipolar Infectious Disease: Other (Hepatitis C) - Past Surgical History Past Surgical History: Arthroscopy (knee), Other (mendez filter placement, angioplasty with stent placement) Review of Systems - Review of Systems Constitutional: denies: Fever, Chills, Weakness Cardiovascular: Edema (he points out some edema and erythema of the LLE.) Musculoskeletal: Leg Pain (He reports leg pain in his hips.) Other: He states, I have physical problems, not mental problems. He is unable to elaborate without rambling with disorganized thoughts. - Medications/Allergies Allergies/Adverse Reactions: Allergies Allergy/AdvReac Type Severity Reaction Status Date / Time No Known Allergies Allergy Unverified 03/16/18 18:44 Medications: Current Medications Acetaminophen (Tylenol) 0 mg PO Q4H PRN PRN Al Hydrox/Mg Hydrox/Simethicone (Mylanta Liquid) 30 ml PO Q2H PRN PRN Dimethicone/Zinc Oxide (Nhan Protect Cream) 0 gm TP PRN PRN Divalproex Sodium (Depakote) 250 mg PO TID [facility] Last Admin: 03/25/18 14:16 Dose: Not Given Docusate Sodium (Colace) 100 mg PO TID [facility] Last Admin: 03/25/18 14:16 Dose: 100 mg Enoxaparin Sodium (Lovenox) 120 mg SC BID [facility] Last Admin: 03/25/18 09:03 Dose: 120 mg Haloperidol (Haldol) 5 mg PO TID PRN PRN Reason: Severe agitation Haloperidol Lactate (Haldol Injection) 5 mg IM/IV Q6H PRN PRN Reason: Severe agitation IV Miscellaneous Supplies () 1 each IV DIRECTED [facility] Lorazepam (Ativan) 1 mg PO TID PRN PRN PRN Reason: Agitation Lorazepam (Ativan Injection) 1 mg IM Q3H PRN PRN PRN Reason: Agitation Magnesium Hydroxide (Milk Of Magnesia) 30 ml PO DAILY PRN PRN Polyethylene Glycol (Miralax) 17 gm PO DAILY PRN PRN PRN Reason: Constipation Quetiapine Fumarate (Seroquel) 100 mg PO [facility] Last Admin: 03/24/18 21:10 Dose: Not Given Sodium Chloride (Saline Flush 10 Ml Syringe) 0 ml IVP PRN PRN Objective - Exam Vitals and I&O: Vital Signs Temp 36.8 C 03/25/18 08:30 Pulse 106 H 03/25/18 08:30 Resp 18 03/25/18 08:30 BP 158/97 03/25/18 08:30 Pulse Ox 100 03/25/18 08:30 Intake & Output 03/24/18 03/25/18 03/25/18 23:59 11:59 23:59 Intake Total 480 480 300 Balance 480 480 300 Intake: Oral 480 480 300 Other: Urine Color Yellow Urine Appearance Clear Urine Odor Normal Comment VOID X 2 DURING NOC. Voiding Methods Toilet Toilet General: Alert. denies: Oriented x3 - Results Results: Laboratory Results WBC 9.62 k/cumm (4.4-10.8) 03/24/18 06:10 RBC 4.90 m/cumm (4.50-6.00) 03/24/18 06:10 Hgb 15.4 g/dL (13.5-17.5) 03/24/18 06:10 Hct 45.2 % (40.0-50.0) 03/24/18 06:10 MCV 92.2 fL (80-95) 03/24/18 06:10 MCH 31.4 pg (27.0-33.0) 03/24/18 06:10 MCHC 34.1 g/dL (32.0-36.0) 03/24/18 06:10 RDW 13.1 % (11.8-14.1) 03/24/18 06:10 Plt Count 184 x1000/uL (130-400) 03/24/18 06:10 MPV 12.5 fL (8.0-11.0) H 03/24/18 06:10 Immature Gran % 0.7 03/24/18 06:10 Neutrophils % 67.0 03/24/18 06:10 Lymphocytes % 23.0 03/24/18 06:10 Monocytes % 7.2 03/24/18 06:10 Eosinophils % 1.9 03/24/18 06:10 Basophils % 0.2 03/24/18 06:10 Absolute Neutrophils 6.45 k/cumm (1.2-6.7) 03/24/18 06:10 Absolute Lymphocytes 2.21 k/cumm (1.2-3.4) 03/24/18 06:10 Absolute Monocytes 0.69 k/cumm (0.11-0.7) 03/24/18 06:10 Absolute Eosinophils 0.18 k/cumm (0.0-0.7) 03/24/18 06:10 Absolute Basophils 0.02 k/cumm (0.0-0.2) 03/24/18 06:10 PT 10.1 sec (9.3-10.8) 03/16/18 20:19 INR 1.0 (1.0-3.5) 03/16/18 20:19 APTT 24.1 sec (21.0-31.4) 03/16/18 20:19 Sodium 139 mmol/L (136-145) 03/16/18 20:19 Potassium 3.5 mmol/L (3.5-5.1) 03/16/18 20:19 Chloride 103 mmol/L (98-107) 03/16/18 20:19 Carbon Dioxide 24.3 mmol/L (21.0-32.0) 03/16/18 20:19 Anion Gap 11.7 mmol/L (3-11) H 03/16/18 20:19 BUN 15 mg/dL (7-18) 03/16/18 20:19 Creatinine 1.07 mg/dL (0.70-1.30) 03/16/18 20:19 Estimated GFR/1.73 m2 >= 60.00 (mL/min/1.73m2) 03/16/18 20:19 Glucose 105 mg/dL (70-100) H 03/16/18 20:19 Calcium 9.3 mg/dL (8.5-10.1) 03/16/18 20:19 Urine Color Sarah (Yellow) 03/17/18 16:15 Urine Clarity Clear 03/17/18 16:15 Urine pH 6.5 (5-8) 03/17/18 16:15 Ur Specific Thayne 1.025 (1.005-1.025) 03/17/18 16:15 Urine Protein Negative mg/dL (Negative) 03/17/18 16:15 Urine Ketones 40 mg/dL (Negative) H 03/17/18 16:15 Urine Blood Negative (Negative) 03/17/18 16:15 Urine Nitrite Negative (Negative) 03/17/18 16:15 Urine Bilirubin Small (Negative) H 03/17/18 16:15 Urine Urobilinogen 4.0 EU/dL (Up TO 0.2) H 03/17/18 16:15 Ur Leukocyte Esterase Negative (Negative) 03/17/18 16:15 Urine Glucose Negative mg/dL (Negative) 03/17/18 16:15 Urine Opiates Screen Negative (Negative) 03/17/18 16:15 Urine Methadone Screen Negative (Negative) 03/17/18 16:15 Ur Barbiturates Screen Negative (Negative) 03/17/18 16:15 Ur Tricyclics Screen Negative (Negative) 03/17/18 16:15 Ur Amphetamines Screen Negative (Negative) 03/17/18 16:15 U Benzodiazepines Scrn Negative (Negative) 03/17/18 16:15 Urine Cocaine Screen Negative (Negative) 03/17/18 16:15 Ur THC Screen Positive (Negative) 03/17/18 16:15 Ethyl Alcohol < 3.0 mg/dL (<3) 03/16/18 20:19
--- NOTE | 2018-03-25 16:41 | PDOC.MHCN ---
Date of Service: 03/25/18 Time of Service: 16:42 Presenting Issue: *How did they arrive here at ER and why did they come: Patient remains at [facility] on involuntary status. Precipitating Factors: *Assessment of Safety SI/HI (address delusions if pertaining to the SI/HI) He continues to deny SI and HI and is adamant that he does not have a mental illness. His speech remains pressured and he rambles on about being the most intelligent man on earth. He accuses hospital staff of stealing his clothes and other belongings. He claims that his mother has lots of money and she will be extremely upset when she learns that he is being held at [facility] illegally. Disposition: *Behavior: Calm at first but quickly becomes agitated. *Eye Contact: Good. *Mood: Irritable *Affect: Paranoid and guarded. *Appetite: Good. *Sleep (trouble falling/staying asleep): Good per patient. Plan: Plan is for patient to remain at [facility] on involuntary status while [facility] continues to seek a psychiatric placement for him.
--- NOTE | 2018-03-25 16:46 | PDOC.MHCN_ITS ---
Date of Service: 03/25/18 Time of Service: 16:42 Presenting Issue: *How did they arrive here at ER and why did they come: Patient remains at [facility] on involuntary status. Precipitating Factors: *Assessment of Safety SI/HI (address delusions if pertaining to the SI/HI) He continues to deny SI and HI and is adamant that he does not have a mental illness. His speech remains pressured and he rambles on about being the most intelligent man on earth. He accuses hospital staff of stealing his clothes and other belongings. He claims that his mother has lots of money and she will be extremely upset when she learns that he is being held at [facility] illegally. Disposition: *Behavior: Calm at first but quickly becomes agitated. *Eye Contact: Good. *Mood: Irritable *Affect: Paranoid and guarded. *Appetite: Good. *Sleep (trouble falling/staying asleep): Good per patient. Plan: Plan is for patient to remain at [facility] on involuntary status while [facility] continues to seek a psychiatric placement for him.
--- NOTE | 2018-03-25 16:54 | NUR.NOTE ---
Nursing Note: [facility] worker was talking with this patient when he became angry with her and started escalating, yelling, swearing and gesturing. She left the area as soon as he started escalating. Patient continued to yell. In house security patrol deputy sheriff was called as back up to the in house security patrol deputy sheriff that is with the patient. The patient continued to perseverate over his complaints with loud pressured speech and repetitiveness. Patient repeated that he is smarter than everyone. Patient would not calm down so the second in house security patrol deputy sheriff made like he was leaving the floor. The patient stated that he was going to fuck up the in house security patrol deputy sheriff that came to help. Patient also asked what am I going to do with his gun when I get it and then answered his own question with I have the right to defend myself, right? with a grin.
[2018-03-25 19:00] VITALS: BP 128/83; PULSE 106; TEMP 37.1; O2SAT 97
[2018-03-26] MEDS: Enoxaparin 120 MG/0.8 ML SYR SC ×2 (09:29→21:34)
[2018-03-26] MEDS: Docusate Sodium 100 MG CAP PO ×3 (09:29→21:33)
--- NOTE | 2018-03-26 16:17 | NUR.NOTE ---
Nursing Note: 0914 Pt quite agitated at this time. Previously refused lab work. Is agreeable to taking scheduled Colace and Lovenox injection, but again refuses any other medications such as Depakote. Pt states some nurse tried to get him to take Seroquel last night; Pt then proceeds to laugh and say if that happens again he will escape through the window. He then demonstrated how by hitting the glass. Pt then immediately switched thought direction and began asking if this nurse wanted to see some shit. Pt proceeded to show random searches on his phone related to his name and launched into a story about being adopted by the Stateless mob. This nurse requested Pt allow her to give Lovenox injection and Pt agreed.
--- NOTE | 2018-03-26 16:22 | NUR.NOTE ---
Nursing Note: 1519 Pt remains quite agitated throughout the day, particularly when asked about where he is from. CNO came to visit Pt who became verbally aggressive and threatening. This RN diffused the situation by telling the Pt the CNO was just making conversation and not trying to cause a problem. 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 Pt is able to be redirected but loves to talk about himself and will focus on his origin and gang background. Will continue to monitor.
--- NOTE | 2018-03-26 17:21 | PGE_ITS ---
Assessment and Plan (1) Bipolar disorder with psychotic features: Current visit: Yes Status: Acute Continues to refuse medical therapy. He remains in emergency evaluation status pending psychiatric bed. Continue to monitor in acute care status for his safety. Subjective Patient reports: no new complaints Interval history since last seen: Continues to be disruptive and loud. Displays episodes of vulgar language and behavior. He tends to want to interact playfully and physically with security services. Medical staff have been leaving disciplinary actions to security only. He continues to refuse medical therapies except Lovenox. No new medical issues. Exam Narrative Exam Narrative: Physically observed to be up in his room pacing, active, vigorous, very loud voice. No respiratory issues per Objective Objective Clinical Data: Vital Signs Temp 37.1 C 03/25/18 19:00 Pulse 106 H 03/25/18 19:00 Resp 18 03/25/18 08:30 BP 128/83 03/25/18 19:00 Pulse Ox 97 03/25/18 19:00 Intake & Output 03/25/18 03/26/18 03/26/18 23:59 11:59 23:59 Intake Total 300 / 300 Balance 300 / 300 Intake: Oral 300 / 300 Other: Comment voiding independently in the toilet and flushing Pt toileting independently. Voiding Methods Toilet Toilet Laboratory Results WBC 9.62 k/cumm (4.4-10.8) 03/24/18 06:10 RBC 4.90 m/cumm (4.50-6.00) 03/24/18 06:10 Hgb 15.4 g/dL (13.5-17.5) 03/24/18 06:10 Hct 45.2 % (40.0-50.0) 03/24/18 06:10 MCV 92.2 fL (80-95) 03/24/18 06:10 MCH 31.4 pg (27.0-33.0) 03/24/18 06:10 MCHC 34.1 g/dL (32.0-36.0) 03/24/18 06:10 RDW 13.1 % (11.8-14.1) 03/24/18 06:10 Plt Count 184 x1000/uL (130-400) 03/24/18 06:10 MPV 12.5 fL (8.0-11.0) H 03/24/18 06:10 Immature Gran % 0.7 03/24/18 06:10 Neutrophils % 67.0 03/24/18 06:10 Lymphocytes % 23.0 03/24/18 06:10 Monocytes % 7.2 03/24/18 06:10 Eosinophils % 1.9 03/24/18 06:10 Basophils % 0.2 03/24/18 06:10 Absolute Neutrophils 6.45 k/cumm (1.2-6.7) 03/24/18 06:10 Absolute Lymphocytes 2.21 k/cumm (1.2-3.4) 03/24/18 06:10 Absolute Monocytes 0.69 k/cumm (0.11-0.7) 03/24/18 06:10 Absolute Eosinophils 0.18 k/cumm (0.0-0.7) 03/24/18 06:10 Absolute Basophils 0.02 k/cumm (0.0-0.2) 03/24/18 06:10 PT 10.1 sec (9.3-10.8) 03/16/18 20:19 INR 1.0 (1.0-3.5) 03/16/18 20:19 APTT 24.1 sec (21.0-31.4) 03/16/18 20:19 Sodium 139 mmol/L (136-145) 03/16/18 20:19 Potassium 3.5 mmol/L (3.5-5.1) 03/16/18 20:19 Chloride 103 mmol/L (98-107) 03/16/18 20:19 Carbon Dioxide 24.3 mmol/L (21.0-32.0) 03/16/18 20:19 Anion Gap 11.7 mmol/L (3-11) H 03/16/18 20:19 BUN 15 mg/dL (7-18) 03/16/18 20:19 Creatinine 1.07 mg/dL (0.70-1.30) 03/16/18 20:19 Estimated GFR/1.73 m2 >= 60.00 (mL/min/1.73m2) 03/16/18 20:19 Glucose 105 mg/dL (70-100) H 03/16/18 20:19 Hemoglobin A1c Cancelled 03/26/18 05:35 Calcium 9.3 mg/dL (8.5-10.1) 03/16/18 20:19 Magnesium Cancelled 03/26/18 05:35 Urine Color Sarah (Yellow) 03/17/18 16:15 Urine Clarity Clear 03/17/18 16:15 Urine pH 6.5 (5-8) 03/17/18 16:15 Ur Specific Exchange 1.025 (1.005-1.025) 03/17/18 16:15 Urine Protein Negative mg/dL (Negative) 03/17/18 16:15 Urine Ketones 40 mg/dL (Negative) H 03/17/18 16:15 Urine Blood Negative (Negative) 03/17/18 16:15 Urine Nitrite Negative (Negative) 03/17/18 16:15 Urine Bilirubin Small (Negative) H 03/17/18 16:15 Urine Urobilinogen 4.0 EU/dL (Up TO 0.2) H 03/17/18 16:15 Ur Leukocyte Esterase Negative (Negative) 03/17/18 16:15 Urine Glucose Negative mg/dL (Negative) 03/17/18 16:15 Urine Opiates Screen Negative (Negative) 03/17/18 16:15 Urine Methadone Screen Negative (Negative) 03/17/18 16:15 Ur Barbiturates Screen Negative (Negative) 03/17/18 16:15 Ur Tricyclics Screen Negative (Negative) 03/17/18 16:15 Ur Amphetamines Screen Negative (Negative) 03/17/18 16:15 U Benzodiazepines Scrn Negative (Negative) 03/17/18 16:15 Urine Cocaine Screen Negative (Negative) 03/17/18 16:15 Ur THC Screen Positive (Negative) 03/17/18 16:15 Ethyl Alcohol < 3.0 mg/dL (<3) 03/16/18 20:19 Date of service: 03/26/18 Time of Service: 17:17
[2018-03-26 19:43] VITALS: BP 153/100; PULSE 115; RESP 20; TEMP 36.6; O2SAT 96
--- NOTE | 2018-03-26 19:58 | NUR.NOTE ---
Nursing Note: Beginning of the shift, patient allowed senior grant writer to performed nursing assessment and vital signs taking. When asked for medication if he wants to have tylenol for anticipating pain and fever, Patient became verbally aggressive, continuously talking about temperature, accelerating agitation presented, security staff within the sight. No HS meds accepted at this time.
--- NOTE | 2018-03-27 07:29 | NUR.NOTE ---
Nursing Note: Pt is resting at this time. Cadre is outside pts room.
[2018-03-27] MEDS: Enoxaparin 120 MG/0.8 ML SYR SC ×2 (08:19→19:54)
[2018-03-27 08:20] VITALS: BP 138/83; PULSE 75; RESP 18; TEMP 36.7; O2SAT 99
[2018-03-27 10:07] LABS: Platelet Count 203 x1000/uL (130-400)
--- NOTE | 2018-03-27 13:20 | NUR.NOTE ---
Pt refused 1400 medications. Patient is in room talking to Security. Nursing Note:
--- NOTE | 2018-03-27 15:05 | W.PM.PROGNOT ---
Assessment and Plan (1) Bipolar disorder with psychotic features: Current visit: Yes Status: Acute Problem details: Continues to refuse medications. He remains on emergency evaluation status. Psychiatric bed pending. Subjective Patient reports: no new complaints Interval history since last seen: He continues to be disruptive. He has been extraordinarily loud and using offensive language with most healthcare personnel interacting with him. The security officers have spent near continuous time with him. While verbally assaultive he is not physically assaulted anyone at this point. He continues to refuse to take medications other than the Lovenox and medications for his bowels. He reportedly slept well last night. Exam Narrative Exam Narrative: He is observed interacting with healthcare providers and the security officers. He has no balance issues, very strong and loud voice. No respiratory issues. No obvious medical issues are current. Objective Objective Clinical Data: Vital Signs Temp 36.7 C 03/27/18 08:20 Pulse 75 03/27/18 08:20 Resp 18 03/27/18 08:20 BP 138/83 03/27/18 08:20 Pulse Ox 99 03/27/18 08:20 Intake & Output 03/26/18 03/27/18 03/27/18 23:59 11:59 23:59 Intake Total 480 / 480 250 / 250 250 / 250 Balance 480 / 480 250 / 250 250 / 250 Intake: Oral 480 / 480 250 / 250 250 / 250 Other: Comment Pt toileting independently. indepedant. Voiding Methods Toilet Toilet Toilet Laboratory Results WBC 9.62 k/cumm (4.4-10.8) 03/24/18 06:10 RBC 4.90 m/cumm (4.50-6.00) 03/24/18 06:10 Hgb 15.4 g/dL (13.5-17.5) 03/24/18 06:10 Hct 45.2 % (40.0-50.0) 03/24/18 06:10 MCV 92.2 fL (80-95) 03/24/18 06:10 MCH 31.4 pg (27.0-33.0) 03/24/18 06:10 MCHC 34.1 g/dL (32.0-36.0) 03/24/18 06:10 RDW 13.1 % (11.8-14.1) 03/24/18 06:10 Plt Count 203 x1000/uL (130-400) 03/27/18 09:21 MPV 12.5 fL (8.0-11.0) H 03/24/18 06:10 Immature Gran % 0.7 03/24/18 06:10 Neutrophils % 67.0 03/24/18 06:10 Lymphocytes % 23.0 03/24/18 06:10 Monocytes % 7.2 03/24/18 06:10 Eosinophils % 1.9 03/24/18 06:10 Basophils % 0.2 03/24/18 06:10 Absolute Neutrophils 6.45 k/cumm (1.2-6.7) 03/24/18 06:10 Absolute Lymphocytes 2.21 k/cumm (1.2-3.4) 03/24/18 06:10 Absolute Monocytes 0.69 k/cumm (0.11-0.7) 03/24/18 06:10 Absolute Eosinophils 0.18 k/cumm (0.0-0.7) 03/24/18 06:10 Absolute Basophils 0.02 k/cumm (0.0-0.2) 03/24/18 06:10 PT 10.1 sec (9.3-10.8) 03/16/18 20:19 INR 1.0 (1.0-3.5) 03/16/18 20:19 APTT 24.1 sec (21.0-31.4) 03/16/18 20:19 Sodium 139 mmol/L (136-145) 03/16/18 20:19 Potassium 3.5 mmol/L (3.5-5.1) 03/16/18 20:19 Chloride 103 mmol/L (98-107) 03/16/18 20:19 Carbon Dioxide 24.3 mmol/L (21.0-32.0) 03/16/18 20:19 Anion Gap 11.7 mmol/L (3-11) H 03/16/18 20:19 BUN 15 mg/dL (7-18) 03/16/18 20:19 Creatinine 1.07 mg/dL (0.70-1.30) 03/16/18 20:19 Estimated GFR/1.73 m2 >= 60.00 (mL/min/1.73m2) 03/16/18 20:19 Glucose 105 mg/dL (70-100) H 03/16/18 20:19 Hemoglobin A1c Cancelled 03/26/18 05:35 Calcium 9.3 mg/dL (8.5-10.1) 03/16/18 20:19 Magnesium Cancelled 03/26/18 05:35 Urine Color Sarah (Yellow) 03/17/18 16:15 Urine Clarity Clear 03/17/18 16:15 Urine pH 6.5 (5-8) 03/17/18 16:15 Ur Specific Elberta 1.025 (1.005-1.025) 03/17/18 16:15 Urine Protein Negative mg/dL (Negative) 03/17/18 16:15 Urine Ketones 40 mg/dL (Negative) H 03/17/18 16:15 Urine Blood Negative (Negative) 03/17/18 16:15 Urine Nitrite Negative (Negative) 03/17/18 16:15 Urine Bilirubin Small (Negative) H 03/17/18 16:15 Urine Urobilinogen 4.0 EU/dL (Up TO 0.2) H 03/17/18 16:15 Ur Leukocyte Esterase Negative (Negative) 03/17/18 16:15 Urine Glucose Negative mg/dL (Negative) 03/17/18 16:15 Urine Opiates Screen Negative (Negative) 03/17/18 16:15 Urine Methadone Screen Negative (Negative) 03/17/18 16:15 Ur Barbiturates Screen Negative (Negative) 03/17/18 16:15 Ur Tricyclics Screen Negative (Negative) 03/17/18 16:15 Ur Amphetamines Screen Negative (Negative) 03/17/18 16:15 U Benzodiazepines Scrn Negative (Negative) 03/17/18 16:15 Urine Cocaine Screen Negative (Negative) 03/17/18 16:15 Ur THC Screen Positive (Negative) 03/17/18 16:15 Ethyl Alcohol < 3.0 mg/dL (<3) 03/16/18 20:19 Date of service: 03/27/18 Time of Service: 15:05
[2018-03-27 15:32] VITALS: BP 146/92; PULSE 105; RESP 18; TEMP 37.2; O2SAT 98
--- NOTE | 2018-03-27 16:29 | PDOC.CMPRO ---
- If Service Date Differs Date of service: 03/26/18 ([employer] downtime - late entry) Care Management Progress Note Rodney was awake most of the night. He started escalating at change of shift and has bee loud and demanding. Standing in doorway and shouting as well as challenging staff members. To this point he has beende-escalated and returned to this room and seems calm while listening to music. BELTRAN Leon, was able to meet with Rodney for a short period of time and then he became agitated and challenging once again. Threatening a lawsuit and [facility] and put a hit out on most of the staff here. Maintains a grandiose presentation often stating You're stupid. Don't you know who I am? Hudjesus held this morning. Attending: Ambrosio FortuneCan Solderer, CARLOS Brand, Mary Anne, RN, DEANDRA Grayson, DEANDRA Braden, BELTRAN Leon Sawmill Equipment Operator. Strike Off Machine Operator coverage until Wednesday03/30/18 @ 0700 Safety Plan - M/S Room 229 MB 03/26/18 11:45 1. Suicide Precautions 2. Patient can remain in personal clothing 3. No other Personal belongings in room 4. Please follow the policy on the admitted behavioral health patient 5. Patient may have cell phone in room, and phone hammer shop supervisor when needed. Patient may have earphones. 6. No visitors at this time 7. Finger foods only. No utensils. 8. Comfort bath system for hygiene 9. Supervised bathroom privileges 10. May have TV and remote privileges 11. One on one supervision by a LICENSED THERAPIST, TRANSMISSION TESTER, sawyer cork slabs. (CPSO) 12. May have phone privileges. Phone is cordless and located in staff respiratory therapist break room. Strike Off Machine Operator to provide patient with the phone and remove when he is finished. [facility] will be coordinating placement at inpatient facility. Per BELTRAN Leon, [facility] will review Rodney on Wednesday and Ben will review on Wednesday. Patient is currently involuntarily at [facility] and seeking inpatient admission when a bed becomes available. [facility] Frontline Sawmill Equipment Operator will continue seeking placement. Please contact the Coding Analyst Medical Detailist ([phone]) and [facility] Sawmill Equipment Operator ([phone]) for any needed changes in the Safety Plan. Safety plan has been provided to interdepartmental care team including Clinical Coordinator, Nursing Deliverer Food.
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
--- NOTE | 2018-03-27 16:57 | PDOC.CMPRO ---
Care Management Progress Note Rodney slept through the night. He was cooperative throughout the day. Able to articulate his needs. Making good eye contact and acting appropriately with the staff. Began to escalate when security shift change took place. Team was able to de-escalate him and Rodney went back in his room. He has been calm and cooperative for the remainder of the afternoon. Evaluated by [facility] Training Technician and QNHP today. BELTRAN Leon, was able to meet with Rodney for a short period of time and then he again became agitated and challenging. No change to the Safety Plan for today. Fluid Dynamicist coverage until Wednesday03/30/18 @ 0700 Safety Plan - M/S Room 229 MB 03/27/18 16:00 1. Suicide Precautions 2. Patient can remain in personal clothing 3. No other Personal belongings in room 4. Please follow the policy on the admitted behavioral health patient 5. Patient may have cell phone in room, and phone weight checker when needed. Patient may have earphones. 6. No visitors at this time 7. Finger foods only. No utensils. 8. Comfort bath system for hygiene 9. Supervised bathroom privileges 10. May have TV and remote privileges 11. One on one supervision by a RN TELEPHONE TRIAGE, BUILDING CARPENTER, neighborhood planner. (CPSO) 12. May have phone privileges. Phone is cordless and located in staff radiologist break room. Fluid Dynamicist to provide patient with the phone and remove when he is finished. [facility] Training Technician will be coordinating placement at inpatient facility. BELTRAN Leon, reports that [facility] will review Rodney again for admission on Wednesday and Ben will review again on Wednesday. Patient is currently involuntarily at [facility] and seeking inpatient admission when a bed becomes available. [facility] Frontline Training Technician will continue seeking placement. Please contact the Vulcanized Fiber Unit Operator Wound Care Physician ([phone]) and [facility] Training Technician ([phone]) for any needed changes in the Safety Plan. Safety plan has been provided to interdepartmental care team including Clinical Coordinator, Nursing Template Inspector.
[2018-03-27] MEDS: Docusate Sodium 100 MG CAP PO (19:54)
--- NOTE | 2018-03-27 20:01 | NUR.NOTE ---
Addendum entered by Leticia Ayala 03/27/18 20:05: she did not know what she was doing and that he did not belong here. pt made a remark about the sap security consultant that was in his room that this pattern chart writer did not catch. then he told this pattern chart writer to leave. this nurse left pt's room before he go to worked up. will continue to monitor. Original Note: this nurse walked in with pt's HS medications, the pt would only take the Lovenox and the Colace. pt wanted fresh water and cola to take colace with. pt became aggitaed that he spilled cola on his bed. pt wanted a lid for cup. nurse put one on. pt was becoming verbally aggressive telling the nurse that
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
--- NOTE | 2018-03-28 00:30 | NUR.NOTE ---
after the information systems security officer for the pt came on for the night the pt became agitated, aggressive, and threatening to the [place] on duty. pt came to the doorway and right away began say threatening that we don't know who his family is and that we should be scared. pt was threatening to come out of his room to fight the security staff and take their weapons. pt was threatening to fight anyone who came in his room. pt was stating that he would fight anyone that came in his room either in his room or in the hallway. this nurse made a deal with pt that nobody except for the nurse would go in there. nurse tried to get the pt to focus on her and go back in the room, but pt kept yelling at the security systems specialist. making the same threats as noted above. pt was still focused on not letting people come in his room. nurse offered to shut the door so the pt could relax and go to bed. pt was agreeable to that. security systems specialist and CPSO in hallway at this time. frequent safety checks. will continue to monitor.
[2018-03-28] MEDS: LORazepam 2 MG/ML VIAL 1 MG IM (01:35)
[2018-03-28] MEDS: Haloperidol 5 MG/ML VIAL IM/IV (01:50)
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
[2018-03-28 08:06] VITALS: BP 143/92; PULSE 89; RESP 20; TEMP 35.3; O2SAT 100
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
[2018-03-28] MEDS: Enoxaparin 120 MG/0.8 ML SYR SC ×2 (10:16→20:00)
[2018-03-28] MEDS: Docusate Sodium 100 MG CAP PO (10:16)
--- NOTE | 2018-03-28 10:40 | NUR.NOTE ---
Nursing Note: 1015 Pt rocking the stretcher during a period of agitation - the stretcher wheels were coming off the ground 2 to 3 inches. - discussed moving pt to a bed with Care Management and the chemical processing supervisor - the plan is to move him to a bed
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
--- NOTE | 2018-03-28 15:59 | PDOC.CMPRO ---
Care Management Progress Note Safety plan remains the same; Rodney has slept throughout the afternoon. When awake earlier this morning he struggled to regulate and engage appropriately. Due to events earlier today where Rodney became aggressive; care plan will reflect higher acuity of behavior. Per , Rodney's engagement was innappropriate and invasive marked with grandiosity, brendan, boundary issues, refusing care and medications, and being belligerent. Rodney has now been at [facility] for 11 days without movement in transfer process to another facility and with consistent threats, yelling, aggression, posturing and manipulation. He has short periods of time where he appears to be utilizing coping mechanisms such as listening to music and verbal processing, then unidentified stimuli or perceptive issues will have him escalating quickly resulting in increased concern for his safety and those around him. Per RN; when restraint was removed from one arm he threatened her verbally, saying she would regret placing the restraint back on his arm if she thought to do so. He began rocking the bed back and forth and was agitated throughout the morning. Rodney was able to calm shortly before noon and make a good decision to move compliantly with staff to a new bed. He was permitted television and remote. Per Shima; [facility]: Rodney had a bed pre-coordinated at [facility] today, but the facility reported too high of acuity in their milieu to accept Rodney today. Safety Plan - M/S Room 229 MB 03/28/18 1. Suicide Precautions 2. Patient permitted to remain in personal clothing 3. No other Personal belongings in room 4. Please follow the policy on the admitted behavioral health patient 5. No visitors at this time 7. Finger foods only. No utensils. 8. Comfort bath system for hygiene 9. Supervised bathroom privileges 10. May have TV and remote. 11. One on one supervision by a SHORER, DIRECTOR CLINICAL APPLICATIONS, senior marketing specialist. (CPSO) Patient is currently on Involuntary status at [facility] and seeking inpatient admission when a bed becomes available. [facility] Frontline Operator Helper will continue seeking placement. Please contact the Trailer Sections Assembler Supervisor Phosphorus Processing ([phone]) and [facility] Operator Helper ([phone]) for any needed changes in the Safety Plan. Safety plan has been provided to interdepartmental care team including Clinical Coordinator, Nursing Human Resources Services Specialist
--- NOTE | 2018-03-28 16:16 | CMPROGNOTE_ITS ---
Care Management Progress Note Safety plan remains the same; Rodney has slept throughout the afternoon. When awake earlier this morning he struggled to regulate and engage appropriately. Due to events earlier today where Rodney became aggressive; care plan will reflect higher acuity of behavior. Per , Rodney's engagement was innappropriate and invasive marked with grandiosity, brendan, boundary issues, refusing care and medications, and being belligerent. Rodney has now been at [facility] for 11 days without movement in transfer process to another facility and with consistent threats, yelling, aggression, posturing and manipulation. He has short periods of time where he appears to be utilizing coping mechanisms such as listening to music and verbal processing, then unidentified stimuli or perceptive issues will have him escalating quickly resulting in increased concern for his safety and those around him. Per RN; when restraint was removed from one arm he threatened her verbally, saying she would regret placing the restraint back on his arm if she thought to do so. He began rocking the bed back and forth and was agitated throughout the morning. Rodney was able to calm shortly before noon and make a good decision to move compliantly with staff to a new bed. He was permitted television and remote. Per Shima; [facility]: Rodney had a bed pre-coordinated at [facility] today, but the facility reported too high of acuity in their milieu to accept Rodney today. Safety Plan - M/S Room 229 MB 03/28/18 1. Suicide Precautions 2. Patient permitted to remain in personal clothing 3. No other Personal belongings in room 4. Please follow the policy on the admitted behavioral health patient 5. No visitors at this time 7. Finger foods only. No utensils. 8. Comfort bath system for hygiene 9. Supervised bathroom privileges 10. May have TV and remote. 11. One on one supervision by a SAFETY NET MAKER, MARRIAGE AND FAMILY SOCIAL WORKER, house worker general. (CPSO) Patient is currently on Involuntary status at [facility] and seeking inpatient admission when a bed becomes available. [facility] Frontline Chick Grader will continue seeking placement. Please contact the Learning Support Resource Room Teacher Fabric Worker ([phone]) and [facility] Chick Grader ([phone]) for any needed changes in the Safety Plan. Safety plan has been provided to interdepartmental care team including Clinical Coordinator, Nursing Dictaphone Transcriber
[2018-03-28 16:35] VITALS: BP 137/91; PULSE 86; RESP 18; TEMP 36.5; O2SAT 100
--- NOTE | 2018-03-28 20:51 | NUR.NOTE ---
Addendum entered by Leticia Ayala 03/28/18 21:17: after this nurse left the room pt was thrashing and banging on bed STREETCAR REPAIRER HELPER went in the room to see if pt would calm down pt did not for a few minutes. Original Note: at 1999 this nurse walked into pt's room to give pt his 2000 medications. pt allowed the nurse to administer Lovenox injection. pt refused all PO medications. while this nurse was administering medication pt was making threatening statements This hospital and the staff are so screwed, you had no right to do this to me. I will make everyone pay when I get out of these restraints. Pt wanted to get OOB to void in BR I told pt that he had to use the urinal this time, but if he cooperated then we would see about putting him in 2 point restraints. pt became more aggressive and demanding at this time. pt brought drinks and food as requested. pt gets more agitated and threatening when he refuses to eat the dinner that the kitchen provided and there is no chicken salad. pt threatens anyone that can hear him including the nurse and the STREETCAR REPAIRER HELPER with his mobster family you don't know who my family is they are [place] mobster and will get everyone one of you. after a few minutes of yelling and threats that this nurse did not hear because she was in another room pt quiets down. will continue to monitor.
[2018-03-29 08:35] VITALS: BP 142/94; PULSE 69; RESP 20; TEMP 37.3; O2SAT 100
[2018-03-29] MEDS: Enoxaparin 120 MG/0.8 ML SYR SC (08:51)
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
--- NOTE | 2018-03-29 11:20 | PDOC.CMPRO ---
- If Service Date Differs Date of service: 03/29/18 Time of Service: 11:20 Care Management Progress Note Safety plan remains the same; Rodney has been cooperative throughout the morning. Per RN in huddle both arm restraints have been removed and Rodney is tolerating this well. Removal of leg restraints was discussed and it was decided to remove restraints at this time as Rodney has been cooperative and appropriate. Per BELTRAN Leon, Referral updates have been faxed to [facility] as well as BISHOP Barillas,. spoke with BISHOP Barillas, whom states that she is actively working on placement for Rodney at this time. Safety Plan - M/S Room 229 MB 03/29/18 1. Suicide Precautions 2. Patient permitted to remain in personal clothing 3. No other Personal belongings in room 4. Please follow the policy on the admitted behavioral health patient 5. No visitors at this time 6. Finger foods only. No utensils. 7. Comfort bath system for hygiene 8. Supervised bathroom privileges 9. May have TV and remote. 10. One on one supervision by a METALSMITH APPRENTICE, MANAGER PRODUCE, bioinformatics research technician. (CPSO) Patient is currently on Involuntary status at [facility] and seeking inpatient admission when a bed becomes available. [facility] Frontline Gate Watchman will continue seeking placement. Please contact the Musical Instrument Mechanic Level Vial Marker ([phone]) and [facility] Gate Watchman ([phone]) for any needed changes in the Safety Plan. Safety plan has been provided to interdepartmental care team including Clinical Coordinator, Nursing Pipe Tester
[2018-03-29] MEDS: Docusate Sodium 100 MG CAP PO (11:24)
--- NOTE | 2018-03-29 11:24 | NUR.NOTE ---
Nursing Note: Pt agreed to take colace however still refusing to take Depakote.
--- NOTE | 2018-03-29 12:19 | CMPROGNOTE_ITS ---
- If Service Date Differs Date of service: 03/29/18 Time of Service: 11:20 Care Management Progress Note Safety plan remains the same; Rodney has been cooperative throughout the morning. Per RN in huddle both arm restraints have been removed and Rodney is tolerating this well. Removal of leg restraints was discussed and it was decided to remove restraints at this time as Rodney has been cooperative and appropriate. Per BELTRAN Leon, Referral updates have been faxed to [facility] as well as BISHOP Barillas ,. spoke with BISHOP Barillas, whom states that she is actively working on placement for Rodney at this time. Safety Plan - M/S Room 229 MB 03/29/18 1. Suicide Precautions 2. Patient permitted to remain in personal clothing 3. No other Personal belongings in room 4. Please follow the policy on the admitted behavioral health patient 5. No visitors at this time 6. Finger foods only. No utensils. 7. Comfort bath system for hygiene 8. Supervised bathroom privileges 9. May have TV and remote. 10. One on one supervision by a PSYCH THERAPIST, CERTIFIED WELLNESS PROGRAM COORDINATOR, marketing administrator. (CPSO) Patient is currently on Involuntary status at [facility] and seeking inpatient admission when a bed becomes available. [facility] Frontline Tobacco Flavorer will continue seeking placement. Please contact the Air Control Electronics Operator Road Hogger Operator ) and [facility] Tobacco Flavorer ([phone]) for any needed changes in the Safety Plan. Safety plan has been provided to interdepartmental care team including Clinical Coordinator, Nursing Electrophonic Engineer
--- NOTE | 2018-03-29 13:36 | PDOC.CMDIS ---
- If Service Date Differs Date of service: 03/29/18 Time of Service: 13:36 LACE Index Scoring Tool - Questions: Length of Stay (in days): 7 - 13 Acuity (Admit via E.D.?): Yes E.D. Visits: 3 - Answers: Total Score: 11 Risk of Readmission: High Risk Care Management Discharge Reason for Hospitalization: Bipolar disorder with psychotic features Discharge Plan: Rodney will DC to [facility] today. DEANDRA spoke with AMBAR Barillas, whom has requested that CM speak with Ricardo Fontaine in regards to transport. DEANDRA spoke with Sheriff Braeden, whom states that [place] can transport. DEANDRA notified Ben Ybarra, that transport time is set for 1430. DEANDRA spoke with BELTRAN eLon, whom will come to [facility] to notify Rodney of DC to [place]. DEANDRA spoke with VANDANA Casillas, and discussed 1430 discharge via [facility]. [facility],. Patient/Family Education Needs: Review DC instructions, any limitations. Services Needed at Discharge: Psychiatric Facility ([facility]), Transportation ([facility])
--- NOTE | 2018-03-29 13:40 | CMDISCH_ITS ---
- If Service Date Differs Date of service: 03/29/18 Time of Service: 13:36 LACE Index Scoring Tool - Questions: Length of Stay (in days): 7 - 13 Acuity (Admit via E.D.?): Yes E.D. Visits: 3 - Answers: Total Score: 11 Risk of Readmission: High Risk Care Management Discharge Reason for Hospitalization: Bipolar disorder with psychotic features Discharge Plan: Rodney will DC to [facility] today. DEANDRA spoke with AMBAR Barillas, whom has requested that CM speak with Ricardo Fontaine in regards to transport. DEANDRA spoke with Sheriff Braeden, whom states that [place] can transport. DEANDRA notified Ben Ybarra, that transport time is set for 1430. DEANDRA spoke with BELTRAN Leon, whom will come to [facility] to notify Rodney of DC to [place]. DEANDRA spoke with VANDANA Casillas, and discussed 1430 discharge via [facility]. [facility],. Patient/Family Education Needs: Review DC instructions, any limitations. Services Needed at Discharge: Psychiatric Facility ([facility]), Transportation ([facility])
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
== END 2018-03-29 14:38 | disposition short-term general hospital (02) | DRG 885 ==
LOC: ER 03-26 10:14 → MS 03-29 13:53
PROVIDERS: Family Medicine; General Practice; Nurse Practitioner Acute Care; Physician Assistant; Admitting Provider Internal Medicine; Emergency Provider Emergency Medicine; PCP Nurse Practitioner Family; Visit Provider Internal Medicine
DX: F31.2 Bipolar disorder, current episode manic severe with psychotic features (principal); Z91.14 Patient's other noncompliance with medication regimen; K59.00 Constipation, unspecified; Z75.1 Person awaiting admission to adequate facility elsewhere; Z86.711 Personal history of pulmonary embolism; Z86.718 Personal history of other venous thrombosis and embolism; I10 Essential (primary) hypertension; B19.20 Unspecified viral hepatitis C without hepatic coma; I25.2 Old myocardial infarction; F17.210 Nicotine dependence, cigarettes, uncomplicated; Z78.1 Physical restraint status
CPT/HCPCS: 36415; 73521; 80048; 80307; 85027; 96372; 99231; 99232; 99238; 99284; 72110; 80320; 81003; 83036; 83735; 85025; 85049; 85610; 85730; 99222; J1630; J1650; J2060

== ENCOUNTER 2019-10-06 22:46 | Outpatient (REF) | payer MEDICAID, SELFPAY ==
[2019-10-06 18:37] LABS: Abs Immature Grans 0.13 k/cumm (0.0-0.09); Absolute Basophil Count 0.03 k/cumm (0.0-0.2); Absolute Eosinophil Count 0.27 k/cumm (0.0-0.7); Absolute Lymphocyte Count 1.73 k/cumm (1.2-3.4); Absolute Monocyte Count 0.49 k/cumm (0.11-0.7); Absolute Neutrophil Count 5.45 k/cumm (1.2-6.7); Basophils % 0.4; Eosinophils % 3.3; HCT 49.8 % (40.0-50.0); HGB 17.5 g/dL (13.5-17.5); Immature Grans % 1.6 %; Lymphocytes % 21.4; Mean Corp. HGB Concentration 35.1 g/dL (32.0-36.0); Mean Corpuscular Hemoglobin 32.1 pg (27.0-33.0); Mean Corpuscular Volume 91.2 fL (80-95); Mean Platelet Volume 13.1 fL (8.0-11.0); Neutrophils % 67.3; Platelet Count 157 x1000/uL (130-400); RBC 5.46 m/cumm (4.50-6.00); RBC Distribution Width 13.6 % (11.8-14.1)
[2019-10-06 19:05] LABS: ALT 85 U/L (16-63); AST 46 U/L (15-37); Albumin 3.9 g/dL (3.4-5.0); Alkaline Phosphatase 71 U/L (46-116); Anion Gap 12.5 mmol/L (3-11); BUN 10 mg/dL (7-18); Bilirubin, Total 0.8 mg/dL (0.2-1.0); CO2 22.5 mmol/L (21.0-32.0); CREATININE 1.16 mg/dL (0.70-1.30); Calcium 7.8 mg/dL (8.5-10.1); Chloride 104 mmol/L (98-107); Glucose 147 mg/dL (74-106); Potassium 3.7 mmol/L (3.5-5.1); Sodium 139 mmol/L (136-145); Total Protein 7.1 g/dL (6.4-8.2)
[2019-10-09 11:12] LABS: Hepatitis C Ab w Rflx HCV PCR Reactive (Negative)
== END 2019-10-06 23:06 ==
LOC: NCHCN 22:46
PROVIDERS: PCP Nurse Practitioner Family; Visit Provider Nurse Practitioner Family
DX: B19.20 Unspecified viral hepatitis C without hepatic coma (principal); F30.9 Manic episode, unspecified; F32.9 Major depressive disorder, single episode, unspecified
CPT/HCPCS: 80053; 86803; 85025; 87522

== ENCOUNTER 2020-01-31 13:27 | Outpatient (REF) | payer MEDICAID, SELFPAY ==
[2020-01-31 15:53] LABS: Hemoglobin A1C 5.4 % (3.8-5.6)
[2020-02-01 09:58] LABS: Hepatitis B Surface Ag Negative (Negative)
[2020-02-01 10:56] LABS: HIV-1/2 Ag & Ab Screen Negative (Negative)
[2020-02-05 09:18] LABS: ALT 51 U/L (7-55); ActiTest Grade A0-A1; ActiTest Interpretation no activity; ActiTest Score 0.25; Alpha-2-Macroglobulin 156 mg/dL (100 - 280); Apoliprotein A1 117 mg/dL (>=120); Bilirubin, Total 0.4 mg/dL (<=1.2); FibroTest Interpretation no fibrosis; FibroTest Score 0.14; FibroTest Stage F0; GGT 43 U/L (8 - 61); Haptoglobin 172 mg/dL (30 - 200)
== END 2020-01-31 13:47 ==
LOC: NCHCN 13:27
PROVIDERS: PCP Nurse Practitioner Family; Visit Provider Family Medicine
DX: B19.20 Unspecified viral hepatitis C without hepatic coma (principal); Z11.4 Encounter for screening for human immunodeficiency virus [HIV]; Z68.39 Body mass index [BMI] 39.0-39.9, adult; F30.9 Manic episode, unspecified
CPT/HCPCS: 81596; 87340; 87389; 83036; 86704

== ENCOUNTER 2020-09-19 09:39 | Outpatient (CLI) | payer MEDICAID, SELFPAY ==
[2020-09-20 10:57] LABS: Hepatitis C Ab w Rflx HCV PCR Reactive (Negative)
[2020-09-23 14:32] LABS: HCV RNA Qualitative Undetected (Undetected)
== END 2020-09-19 09:40 | disposition home or self-care (01) ==
LOC: LBO 09:40
PROVIDERS: PCP Nurse Practitioner Family; Visit Provider Family Medicine
DX: B19.20 Unspecified viral hepatitis C without hepatic coma (principal)
CPT/HCPCS: 36415; 86803; 87522

== ENCOUNTER 2021-12-18 16:28 | Outpatient (REF) | payer MEDICAID, SELFPAY ==
[2021-12-20 10:31] LABS: COVID-19 RT-PCR UVMMC Result Negative (Negative)
== END 2021-12-18 16:29 | disposition home or self-care (01) ==
LOC: LBN 16:28
PROVIDERS: PCP Nurse Practitioner Family; Visit Provider Physician Assistant
DX: Z20.822 Contact with and (suspected) exposure to COVID-19 (principal)
CPT/HCPCS: U0003

== ENCOUNTER 2022-06-02 17:57 | Outpatient (REF) | payer MEDICAID, SELFPAY ==
[2022-06-02 15:46] LABS: HCT 53.1 % (40.0-50.0); HGB 18.4 g/dL (13.5-17.5); MCH 31.6 pg (27.0-33.0); MCHC 34.7 % (32.0-36.0); MCV 91 fL (80-95); Platelet Count 232 10^3/uL (130-400); RBC 5.82 10^6/uL (4.36-5.78); RDW 12.9 % (11.8-14.1); RDW-SD 43.3 fL; WBC 8.77 10^3/uL (4.4-10.8)
[2022-06-02 16:08] LABS: ALT 30 U/L (16-63); AST 21 U/L (15-37); Albumin 4.1 g/dL (3.4-5.0); Alkaline Phosphatase 71 U/L (46-116); Anion Gap 8.9 mmol/L (3-11); BUN 10 mg/dL (7-18); Bilirubin, Total 0.4 mg/dL (0.2-1.0); CO2 26.1 mmol/L (21.0-32.0); CREATININE 1.3 mg/dL (0.70-1.30); Calcium 9.1 mg/dL (8.5-10.1); Calculated LDL 148 mg/dL (<100); Chloride 107 mmol/L (98-107); Cholesterol 210 mg/dL (<200); Estimated GFR 69.47 (mL/min/1.73m2); Glucose 110 mg/dL (74-106); HDL Cholesterol 35 mg/dL (40-60); Potassium 4.2 mmol/L (3.5-5.1); Sodium 142 mmol/L (136-145); Total Protein 8.1 g/dL (6.4-8.2); Triglyceride 138 mg/dL (<150)
== END 2022-06-02 17:58 | disposition home or self-care (01) ==
LOC: NCHCN 17:57
PROVIDERS: PCP Nurse Practitioner Family; Visit Provider Nurse Practitioner Family
DX: E78.5 Hyperlipidemia, unspecified (principal); F32.9 Major depressive disorder, single episode, unspecified; R79.89 Other specified abnormal findings of blood chemistry
CPT/HCPCS: 80053; 80061; 85027

== ENCOUNTER 2022-10-27 17:07 | Outpatient (CLI) | payer MEDICAID, SELFPAY ==
[2022-10-27 10:13] LABS: D-Dimer 254 ng/mlFEU (<500)
== END 2022-10-27 17:08 | disposition home or self-care (01) ==
LOC: LBO 17:07
PROVIDERS: PCP Nurse Practitioner Family; Visit Provider Family Medicine
DX: M79.602 Pain in left arm (principal); U07.1 COVID-19; Z86.718 Personal history of other venous thrombosis and embolism
CPT/HCPCS: 36415; 85379